=== PATIENT | male | born 1950 | race Caucasian/White ===

== ENCOUNTER 2021-05-26 14:35 | Outpatient (CLI) | payer MEDICARE, SELFPAY ==
[2021-05-26 14:45] LABS: Bacteria 0 SEEN /hpf (None Seen); Mucous, Urine 0 SEEN /hpf (<or=2+); Red Blood Cells-Urine 0 SEEN /hpf (0-5); Squamous Epithelial Cells - UA 0 SEEN /hpf (0-5)
[2021-05-26 15:14] LABS: Hematocrit 24.1 % (40-54); Hemoglobin 7.8 g/dL (13.0-16.5); Mean Corp Hgb Conc 32.4 g/dL (32-36); Mean Corpuscular Hgb 27.5 pg (27.0-32.0); Mean Corpuscular Volume 84.9 fL (80-94); Mean Platelet Vol. 8.2 fl (6.2-12.0); POSITIVE COUNT YES; POSITIVE MORPHOLOGY YES; Platelet Count 410 K/mm3 (150-450); RBC Distribution Width CV 15.6 % (11.6-14.6); RBC Distribution Width SD 47.4 fl (35.1-43.9); Red Blood Count 2.84 M/mm3 (4.6-6.2); White Blood Count 5.3 K/mm3 (4.4-11.0)
[2021-05-26 15:15] LABS: Differential Indicated MANUAL DIFF
[2021-05-26 15:43] LABS: Lymphocyte 13 % (19-41); Metamyelocyte 1 % (0-1); Monocyte 2 % (0-10); Myelocyte 1 % (0-0); Neutrophil-Band 3 % (0-5); Neutrophil-Segmented 80 % (47-70); Total Cells Counted 100 (MANUAL DIFF)
[2021-05-26 15:45] LABS: Absolute Lymphocyte Count 0.69 X10^3/uL (0.83-4.51); Absolute Neutrophil Count 4.4 X10^3/uL (2.0-7.7)
[2021-05-26 16:38] LABS: Color, Urine Yellow (Yellow); Glucose, Dipstick Normal (Normal); Ketone-Dipstick Negative (Negative); Leukocyte Esterase-Dipstick 25 /ul (Negative); Nitrite-Dipstick Negative (Negative); Occult Blood-Urine 25 /ul (Negative); Protein-Dipstick 15 mg/dl (Negative); Urine Bilirubin Dipstick Negative (Negative); Urine Clarity Clear (Clear); Urine Urobilinogen Normal (Normal)
[2021-05-26 16:43] LABS: ALB/GLOB Ratio 0.7 RATIO (0.9-2.4); AST(SGOT) 13 U/L (15-37); Alanine Aminotransfer ALT/SGPT 14 U/L (16-61); Albumin, Serum 3.2 g/dL (3.2-5.0); Alkaline Phosphatase 150 U/L (45-117); Anion Gap 7 (5-15); BUN 29 mg/dL (7-18); BUN/Creat Ratio 12.3 RATIO (10-20); Calcium,Total 8.9 mg/dL (8.5-10.1); Chloride 105 mmol/L (98-107); Cholesterol 185 mg/dL (200); Creatinine, Serum 2.35 mg/dL (0.70-1.30); EST Glomerular Filtration Rate 29 mL/min (>60); Est Glom Filt Rate - Afr Amer 36 mL/min (>60); Globulin 4.6 g/dL (2.2-4.2); Glucose 116 mg/dL (74-106); High Density Lipoprotein 85 mg/dL; PSA,Total - Annual Screen > 2000.00 ng/mL (0.00-4.00); Potassium 4.5 mmol/L (3.5-5.1); Protein, Total 7.8 g/dL (6.4-8.2); Sodium Level 136 mmol/L (136-145); Thyroid Stim Hormone (TSH) 0.98 uIU/mL (0.358-3.74); Triglycerides 121 mg/dL; Very Low Density Lipoprotein 24 mg/dL (5-40)
[2021-05-26 16:49] LABS: White Blood Cells 0-5 SEEN /hpf (0-5)
[2021-05-26 17:40] LABS: Erythrocyte Sedimentation Rate 27 mm/hr (0-20)
[2021-05-26 18:05] LABS: Ferritin 196 ng/mL (26-388); Iron 73 ug/dL (65-175); Iron Binding Capacity,Total 294 ug/dL (250-450)
[2021-05-30 09:37] LABS: Pathologist Review Reviewed
== END 2021-05-26 23:59 | disposition home or self-care (01) ==
LOC: BIMLAB 14:37
PROVIDERS: PCP Internal Medicine; Referring Provider Internal Medicine; Visit Provider Internal Medicine
DX: I10 Essential (primary) hypertension (principal); F32.A Depression, unspecified; D64.9 Anemia, unspecified; N40.1 Benign prostatic hyperplasia with lower urinary tract symptoms; R35.1 Nocturia; R97.20 Elevated prostate specific antigen [PSA]; Z12.5 Encounter for screening for malignant neoplasm of prostate
CPT/HCPCS: 36415; 80053; 80061; 81001; 82728; 83540; 83550; 84153; 84439; 84443; 85025; 85652; G0103

== ENCOUNTER 2021-06-01 11:04 | Outpatient (CLI) | payer MEDICARE, SELFPAY ==
[2021-06-01 12:48] LABS: Vitamin B12 611 pg/mL (211-911)
== END 2021-06-01 23:59 | disposition home or self-care (01) ==
LOC: BIMLAB 11:05
PROVIDERS: PCP Internal Medicine; Referring Provider Internal Medicine; Visit Provider Internal Medicine
DX: D64.9 Anemia, unspecified (principal)
CPT/HCPCS: 36415; 82607; 82746

== ENCOUNTER 2021-06-14 16:17 | Outpatient (CLI) | payer MEDICARE, SELFPAY ==
--- NOTE | 2021-06-14 | IMM_PTH ---
PATIENT: YOLY ROB LOC: [facility] U#:[id number] AGE/SX: 71/M ROOM: RE06/14/[address]: Dr. Nash Leiva MD : 1950 BED: DIS: 06/14/2021 SPEC #: [id number] RECD: 07/11/21 12:31 STATUS: HUA RELauren #: [id number] KRISTAN: 06/14/21 00:[address]: Nash Leiva DEPT: IMMUNOHISTOCHEMISTRY RECD BY: Cailin Gruber ENTERED: 07/11/21 12:33 SP TYPE: IMMUNO OTHR DR: Dr. Estefany De Guzman MD Tissues: PROSTATE BIOPSY Procedures: MSH2 (add) MLH-1 (add) MSH6 (add) Anti-PMS2 (add) KI-67 (add) P53 (add) HER-2-ENRIQUE (initial) PHYSICIAN & INSTITUTION [address] [address] SPECIMEN INFORMATION: Tissue Source: Prostate, core biopsy Clinical Info: Elevated PSA Specimen Number: [id number] CPT code: 85728, 40735 x6 METHODOLOGY: Deparaffinized sections of prefer/formalin-fixed tissue or PAP/DQ stained slides are incubated with monoclonal/polyclonal antibodies/oligonucleotide probes. Localization is made via biotin free immunoperoxidase method. Appropriate controls are performed and reacted as expected. Results on target cell population are indicated in the following table: RESULTS: ANTIBODY / CLONE RESULT Ki-67 (30-9) positive, very low <1% P53 (DO-7) negative MLH-1 (M1) positive MSH2 (25D12) negative MSH6 (44) negative PMS2 (MHN9669) positive Her-2neu (CB11) negative These tests were developed and their performance characteristics determined by [facility]. They may not have been cleared or approved by the U.S. Food and Drug Administration. The FDA has determined that such clearance or approval is not necessary. The above immunohistochemical/dualISH markers are ordered and reviewed by the Pathologist. INTERPRETATION: Prostate, core biopsy: Prostatic adenocarcinoma. Result of Microsatellite Instability Study: Positive (loss of mismatch protein; microsatellite instability detected). Complete loss of MSH2 and MSH6. SJ:elia 07/12/2021 Case has been reviewed in consultation with Dr. Platt who concurs with the above diagnosis. IDC:AM
--- NOTE | 2021-06-14 13:00 | PROSB_PTH ---
PATIENT: YOLY ROB LOC: [facility] U#:[id number] AGE/SX: 71/M ROOM: RE06/14/[address]: Dr. Nash Leiva MD : 1950 BED: DIS: 06/14/2021 SPEC #: [id number] RECD: 06/14/21 16:06 STATUS: HUA SIERRA #: [id number] KRISTAN: 06/14/21 13:[address]: Nash Leiva DEPT: SURGICAL PATHOLOGY RECD BY: Steffanie Gomez ENTERED: 06/15/21 09:01 SP TYPE: PROST BX OTHR DR: Dr. Estefany De Guzman MD Tissues: Prostate, NOS Procedures: Surgery Specimen Level IV HEADER OPERATION: Prostate biopsy PRE-OP DIAGNOSIS: R97.20 TISSUE SUBMITTED: Prostate biopsy MICROSCOPIC DIAGNOSIS Prostate, core biopsy: Prostatic adenocarcinoma. [place] grade: 3+4=7 Number of cores involved: 3/3 Proportion of tissue involved: >95% Perineural invasion: Present, focal. Greatest tumor length: 1.4 cm STEVEN:elia 06/16/2021 COMMENT Case has been reviewed in consultation with Dr. Platt who concurs with the above diagnosis. IDC:AM MICROSCOPIC DESCRIPTION Slides are reviewed. GROSS DESCRIPTION Received in fixative is one container labeled with the patient's name and designated prostate. The specimen consists of three elongated fragments of light gutierrez-white soft tissue each measuring 1.5 to 2 cm in length and 0.1 cm in diameter. The specimen is totally submitted in one cassette. / STEVEN:elia 06/15/2021 TC:0 CPT: 59590 ADDENDUM ADDENDUM ADDENDUM ADDENDUM ADDENDUM ADDENDUM ADDENDUM ADDENDUM ADDENDUM ADDENDUM ADDENDUM ADDENDUM ADDENDUM ADDENDUM ADDENDUM ADDENDUM ADDENDUM ADDENDUM ADDENDUM ADDENDUM ADDENDUM 07/25/2021 10:13 ADDENDUM 07/25/2021 10:13 ADDENDUM 07/25/2021 10:13 ADDENDUM 07/25/2021 10:13 ADDENDUM 07/25/2021 10:13 [facility] ADVANCED PROSTATE NGS REPORT FROM [facility] RESULT SUMMARY: Normal IMMUNOTHERAPY BIOMARKERS: Tumor Mutation [place]: Low (2.4 Mutations / MB) Microsatellite Instability: MSI Negative PERTINENT NEGATIVE RESULTS: The following genes are NEGATIVE for clinically relevant mutations. Mutational hotspots and surrounding exonic regions were interrogated for DNA level point mutations and indels (fusions not assayed). AR, ARID1A, GERI, ATR, BARD1, BRCA1, BRCA2, BRIP1, CDK12, CHEK1, CHEK2, EPCAM, VGP020E, FANCA, FANCL, GEN1, HOXB13, MLH1, MRE11A, MSH2, MSH6, MUTYH, NBN, NTRK1, PALB2, PMS2, WEE0F6D, PTEN, RAD51B, RAD51C, RAD51D, RAD54L, RB1, TERT, TP53 PD-L1 (KEYTRUDA) IMMUNOHISTOCHEMICAL ANALYSIS FROM [facility] RESULTS: Tumor proportion score: 5% / Positive Please see complete report in e-chart or EMR
== END 2021-06-14 23:59 | disposition home or self-care (01) ==
LOC: LABSPEC 16:19
PROVIDERS: PCP Internal Medicine; Referring Provider Urology; Visit Provider Urology
DX: R97.20 Elevated prostate specific antigen [PSA] (principal)
CPT/HCPCS: 88305; 88341; 88342

== ENCOUNTER 2021-06-21 11:59 | Outpatient (CLI) | payer MEDICARE, SELFPAY ==
--- NOTE | 2021-06-21 12:02 | CT_ITS ---
STUDY: CT ABDOMEN AND PELVIS WITH CONTRAST REASON FOR EXAM: Male, 71 years old. MALIGNANT NEOPLASM OF PROSTATE RADIATION DOSAGE (If Supplied By Facility): CTDIvol = ( 5.68 ) mGy, DLP = ( 241.34 ) mGycm TECHNIQUE: Transaxial images were obtained from the dome of the diaphragm to the symphysis pubis without oral contrast. IV 100mL Isovue-300 was administered. Sagittal and coronal images were reconstructed. Individualized dose optimization techniques were used for this CT. COMPARISON: None. FINDINGS: Small bilateral pleural effusions left greater than right with bibasilar atelectasis slightly more prominent on the left side. Calcified pleural plaques on the right side. The visualized portions of the heart are within normal limits. Normal liver. Normal gallbladder and extrahepatic biliary system. Normal spleen. Normal pancreas. Normal bilateral adrenal glands. Moderate degree of bilateral hydronephrosis and hydroureter. Normal visualized stomach. Normal small intestine. Normal colon. The appendix is visualized and appears normal. There is diffuse atherosclerotic calcification of the abdominal aorta, without a demonstrated aneurysm. Normal inferior vena cava. Normal retroperitoneum. Normal urinary bladder. There is enlargement of the prostate gland. The prostate measures 5.3 cm x 5.6 cm. This causes indentation at the bladder base. Normal abdominal wall. There is evidence of diffuse lytic and sclerotic metastasis involving the axial and appendicular skeletons. There is a 4.5 cm x 2.4 cm destructive mass involving the inferior aspect of the left sacrum. CT/Abdomen/Pelvis W IV Cont ONLY IMPRESSION: Marked enlargement of the prostate with indentation of the bladder base. Moderate degree of bilateral hydronephrosis and hydroureter. Diffuse lytic and sclerotic metastasis involving the appendicular and axial skeletons with a destructive mass in the left hemisacrum. Electronically Signed: Jhonny Sherwood MD at 14:57 EST ,
[2021-06-21 12:14] VITALS: BP 167/82; PULSE 96; RESP 16; TEMP 36.6; O2SAT 100; BMI 19.6
[2021-06-21 13:01] VITALS: BP 139/68; PULSE 83; RESP 16; O2SAT 100
[2021-06-21 13:32] VITALS: BP 144/62; PULSE 81; RESP 16; O2SAT 100
== END 2021-06-21 23:59 | disposition home or self-care (01) ==
LOC: CT 12:00
PROVIDERS: PCP Internal Medicine; Referring Provider Urology; Visit Provider Urology
DX: C61 Malignant neoplasm of prostate (principal)
CPT/HCPCS: 74177; J7040; Q9967

== ENCOUNTER 2021-06-27 08:50 | Outpatient (CLI) | payer MEDICARE, SELFPAY ==
--- NOTE | 2021-06-27 08:57 | NM_ITS ---
CLINICAL: 71-year-old male with history of carcinoma of the prostate. WHOLE BODY 99m Tc MDP RADIONUCLIDE BONE SCINTIGRAPHY COMPARISON: None available FINDINGS: Following the intravenous administration of 25.0 mCi of 99m Tc MDP, whole body bone images reveal: 1. Multifocal increased radiopharmaceutical concentration is disseminated throughout the axial skeletal structures, too many to individually articulate as well as focally apparent in the bilateral proximal humeral and femoral metaphysis, the left proximal femoral diaphysis, left femoral head-neck, right-left alicia-calvarium. 2. Enhanced tracer concentration is observed in the bilateral wrist articulations. 3. The remaining skeletal structures are scintigraphically unremarkable with right-left renal units and urinary bladder activity identified. An apparent photopenic abnormality is noted in the left kidney. NM/Bone Scan Whole Body IMPRESSION: 1. The increase in radiopharmaceutical concentration identified in the appendicular and axial skeletal structures, right-left calvarium is most consistent with diffuse skeletal metastatic disease. 2. Degenerative arthritis appears expressed in the right and left wrists. Electronically Signed: Tung Cuello DO at 22:40 EDT ,
== END 2021-06-27 23:59 | disposition home or self-care (01) ==
LOC: NM 08:53
PROVIDERS: PCP Internal Medicine; Referring Provider Urology; Visit Provider Urology
DX: C61 Malignant neoplasm of prostate (principal)
CPT/HCPCS: 78306; A9503

== ENCOUNTER 2021-07-06 09:52 | Outpatient (CLI) | payer MEDICARE, SELFPAY ==
[2021-07-06 12:40] LABS: Anion Gap 9 (5-15); BUN 27 mg/dL (7-18); BUN/Creat Ratio 14.3 RATIO (10-20); Calcium,Total 7.1 mg/dL (8.5-10.1); Chloride 105 mmol/L (98-107); Creatinine, Serum 1.89 mg/dL (0.70-1.30); EST Glomerular Filtration Rate 38 mL/min (>60); Est Glom Filt Rate - Afr Amer 46 mL/min (>60); Glucose 111 mg/dL (74-106); Potassium 4.3 mmol/L (3.5-5.1); Sodium Level 137 mmol/L (136-145)
== END 2021-07-06 23:59 | disposition home or self-care (01) ==
LOC: BIMLAB 09:53
PROVIDERS: PCP Internal Medicine; Referring Provider Internal Medicine; Visit Provider Internal Medicine
DX: I10 Essential (primary) hypertension (principal)
CPT/HCPCS: 36415; 80048

== ENCOUNTER 2021-07-12 08:20 | Outpatient (CLI) | payer MEDICARE, SELFPAY ==
[2021-07-12] MEDS: 0.9% NaCl Peripheral Flush Adult/Peds IV (08:40)
[2021-07-12 08:41] VITALS: BP 128/59; PULSE 75; RESP 16; TEMP 36.2; O2SAT 100
[2021-07-12 09:01] VITALS: BP 126/54; PULSE 72; RESP 16; TEMP 36.5; O2SAT 100
[2021-07-12 10:01] VITALS: BP 125/60; PULSE 72; RESP 16; TEMP 36.7
[2021-07-12 10:34] VITALS: BP 136/63; PULSE 66; RESP 16; TEMP 36.6; O2SAT 100
[2021-07-12 11:08] VITALS: BP 132/63; PULSE 65; RESP 16; TEMP 36.7
[2021-07-12 12:08] VITALS: BP 141/65; PULSE 63; RESP 16; TEMP 36.7; O2SAT 100
== END 2021-07-12 23:59 | disposition home or self-care (01) ==
LOC: MEDOUTP 08:21
PROVIDERS: PCP Internal Medicine; Referring Provider Internal Medicine Hematology & Oncology; Visit Provider Internal Medicine Hematology & Oncology
DX: D64.9 Anemia, unspecified (principal)
CPT/HCPCS: 36430; 86850; 86900; 86901; 86920; 86922; J7040; P9016; A4216

== ENCOUNTER 2021-07-25 12:45 | Outpatient (CLI) | payer MEDICARE, SELFPAY ==
--- NOTE | 2021-07-25 12:48 | US_ITS ---
STUDY: RENAL ULTRASOUND - COMPLETE REASON FOR EXAM: Male, 71 years old. PROSTATE CANCER TECHNIQUE: Ultrasound evaluation of the kidneys was performed with real-time and static hubbard-scale imaging. COMPARISON: None. FINDINGS: RIGHT KIDNEY: Normal location of the right kidney, which is normal in size. The right kidney measures 10.6 cm x 4.3 cm x 4.1 cm. There is a normal cortex of the right kidney. The renal cortex measures 1.1 cm. There is no right renal mass or cyst. There are no right renal calculi. There is mild hydronephrosis of the right kidney. DISTAL RIGHT URETER: There is mild hydroureter of the distal right ureter. There is no demonstrated right ureterovesical junction calculus. There is a visualized right ureteral jet. LEFT KIDNEY: Normal location of the left kidney, which is normal in size. The left kidney measures 10.2 cm x 4.7 cm x 5.2 cm. There is a normal cortex of the left kidney. The renal cortex measures 1.2 cm. There is no left renal mass or cyst. There is a 2.2 cm x 2.1 cm x 2.3 cm left renal cyst. There is moderate hydronephrosis of the left kidney. DISTAL LEFT URETER: There is mild hydroureter of the distal left ureter. There is no demonstrated left ureterovesical junction calculus. There is a visualized left ureteral jet. BLADDER: The bladder wall is diffusely thickened and trabeculated. US/Kidney and Bladder IMPRESSION: Bilateral hydronephrosis left greater than right. Left renal cyst. Trabeculation of the urinary bladder wall. Electronically Signed: Jhonny Sherwood MD at 15:14 EDT ,
== END 2021-07-25 23:59 | disposition home or self-care (01) ==
LOC: US 12:47
PROVIDERS: PCP Internal Medicine; Referring Provider Internal Medicine Hematology & Oncology; Visit Provider Internal Medicine Hematology & Oncology
DX: C61 Malignant neoplasm of prostate (principal); N13.39 Other hydronephrosis; N13.4 Hydroureter
CPT/HCPCS: 76770

== ENCOUNTER 2021-07-26 06:26 | Day surgery (SDC) | payer MEDICARE, SELFPAY ==
[2021-07-26 06:57] VITALS: BP 145/90; PULSE 77; RESP 16; TEMP 36.7; O2SAT 100; BMI 18.2
[2021-07-26] MEDS: Lactated Ringers 1,000 ML 15 ML IV (07:01)
--- NOTE | 2021-07-26 07:25 | HP.PCM_ITS ---
History and Physical Date of Admission: 07/26/21 Date of Service: 07/21/21 MR#:[id number]:[id number]: YOLY ROB #:[id number]:1950 Provider:Dr. Fadi Goldman MDAge/Sex: 71/M [facility] Vital Signs 07/21/21 13:17 Height 6 ft Weight: 138 lb BMI 18.7 BP 158/75 H Blood Pressure Location Rt brachial Position Sitting Respiration 18 Intake Visit Reasons: C-SCOPE Chief Complaint: egd/c-scope Hospital Food Service Worker Required: No Is patient in pain?: No Allergies No Known Allergies Allergy (Verified 07/21/21 13:15) Medications bicalutamide 50 mg PO DAILY 06/21/21 [History Confirmed 07/21/21] calcium carbonate-vitamin D3 [Calcium 500 + D (D3)] 1 tab PO BID 06/21/21 [History Confirmed 07/21/21] tamsulosin 0.4 mg PO QHS 06/21/21 [History Confirmed 07/21/21] amlodipine 5 mg tablet 5 mg PO DAILY #30 tab 07/06/21 [Rx Confirmed 07/21/21] dutasteride 0.5 mg capsule 0.5 mg PO DAILY 07/06/21 [History Confirmed 07/21/21] mirtazapine 15 mg tablet 15 mg PO QHS #90 tab 07/06/21 [Rx Confirmed 07/21/21] polyethylene glycol 3350 17 gram/dose oral powder 17 g PO DAILY 07/06/21 [History Confirmed 07/21/21] PFSH Medical History Alcohol abuse Anemia Arthritis Back injury BPH (benign prostatic hyperplasia) Colon cancer screening Constipation Depression Elevated PSA Hypertension Hypocalcemia Kidney injury Nocturia Prostate cancer Prostatic enlargement Surgical History History of hernia repair Family History Father Anxiety Arthritis Diabetes CVA (cerebral vascular accident) Parkinsons Mother Arthritis Hypertension Social History household members: spouse number of children: 2 current occupational status: retired current occupation: maintenance at [employer] pets and animals: No Smoking Status: Former smoker Smokeless tobacco user: chewing tobacco alcohol intake: current alcohol intake frequency: 3 or more drinks per day Alcohol type: beer details: drinks about 4 beers a day substance use type: does not use HPI HPI HPI: YOLY ROB, is a 71 M who presents to the office today for Need to schedule diagnostic EGD and colonoscopy secondary to recent diagnosis of anemia. They are referred for surgical consultation from Dr. Hermosillo. Patient was first diagnosed with anemia couple months ago. It has progressed the point that he actually required a transfusion on 07/12/2021. He states that he did perk up after this. He denies any recent experience of coughing up blood or noting bright red blood per rectum or tarry stools. He denies feeling fatigued, but states that he has lost approximately 35 pounds from last year. He and his thought this was finally explained once he was diagnosed with prostate cancer after seeing Dr. Mc of urology the end of May this year. Unfortunately, his prostate cancer was noted to be metastatic to the bone and he is currently undergoing hormonal therapy with Dr. Hermosillo for this diagnosis. His notes that his weight loss has somewhat turned around after beginning mirtazapine. Patient has not had prior colonoscopy. Patient has no personal history of diverticulitis, inflammatory bowel disease, or colon cancer. They describe their bowel habits as normal, and occurring 1 time daily without straining, however, recently on his hormonal therapy has noted some constipation. As above, they have not noticed recent bleeding or dark stools. They do not regularly take fiber supplements but believe they incorporate a lot of fiber in the regular diet. Patient has a family history of cancerous polyp in his mother that did not require treatment?they know she was diagnosed in her 90s. They relate the patient recently went through Hemoccult testing and 2 of 3 Hemoccult cards were positive. The patient is not prescribed anticoagulants/blood thinners. Relevant prior abdominal surgical history includes: Left inguinal hernia repair 25 years ago Socially, patient drinks now 3 beers nightly, but states he did much more than this when he was younger. He has never been told that he has cirrhosis or esophageal varices. He did undergo went CT imaging last month as part of his work-up for his prostate cancer diagnosis. ROS General General: Yes weight change, appetite and fatigue; No colon cancer, breast cancer or weakness HEENT HEENT: Yes eye injury and eye surgery; No difficulty swallowing, swollen glands or hoarseness Endo Endocrine: No thyroid disease, diabetes mellitus, thyroid cancer, Hair loss, heat intolerance or cold intolerance Skin Skin: No rash or changing moles Breast Breast: No left breast lump, right breast lump, nipple discharge, breast pain, abnormal mammogram, abnormal US or breast enlargement Musc Musculoskeletal: Yes back problems and arthritis; No rheumatoid arthritis, gout or joint pain Cardio Cardiovascular: Yes high blood pressure; No murmur, pacemaker, heart disease, atrial fibrillation, heart attack, heart stent, palpitations, shortness of breat with exertion or chest pain Psych Psychiatric: Yes depression and anxiety; No hearing voices Resp Respiratory: No shortness of breath, No sleep apnea, No cough, No COPD, No asthma, No emphysema and No wheezing Gastro Gastrointestinal: No abdominal pain, No nausea or vomiting, No diarrhea, Yes constipation, Yes blood in stool, No acid reflux, No hemorrhoids, No ulcers, No gallbladder problem and No black,tarry stools Jeovany Hematologic: No blood thinners, Yes blood disorders, Yes bleeding, Yes anemia and No blood clots Neuro Neurologic: No system reviewed and no additional complaints, except as documented, No as per HPI, No abnormal gait, No abnormal hearing, No abnormal movements, No abnormal speech, No behavioral changes, No burning sensations, No confusion, No convulsions, No disequilibrium, No dizziness, No localized weakness, No frequent falls, No headache(s), No lack of coordination, No loss of vision, No memory loss, No numbness, No other visual disturbances, No radicular pain, No restless legs, No sensory deficit, No syncope, No tingling, No tremor(s), No weakness and No other Exam Const General: cooperative, healthy appearing, comfortable, no acute distress and frail appearing Nutritional Appearance: thin Orientation: alert and awake Resp Effort & Inspection: normal respiratory effort Auscultation: clear to auscultation bilaterally, no rales, no rhonchi and no wheezes Cardio Rate: regular rate Rhythm: regular rhythm Heart Sounds: S1 normal and S2 normal GI Inspection: normal to inspection Palpation: soft, no hernias, no masses, nontender and other Other: Patient has a nodular area in his left groin which she states is scar tissue from his hernia repair 25 years ago?and states that he probably went back to it too quickly following the surgery Assessment and Plan Assessment and Plan (1) Anemia: Status: Acute Comment: This is a 71-year-old male recently diagnosed with metastatic prostate cancer who presents for evaluation of recently diagnosed anemia. He states that he is enjoyed relatively good health during his life, but admits he has not been in touch with medical providers for the last 20 years. He denies noting any hematemesis, hematochezia, or melena type findings. He also seems to be relatively asymptomatic from his low hemoglobin. He did have 2 of 3 fecal occult blood tests returned positive. He does not have a history of frequent NSAID use or peptic ulcer disease. Still, given this profound anemia that has now required transfusion, I agree with request to perform diagnostic EGD and colonoscopy. Also notable from patient's family history is a report that his mother was diagnosed with a cancerous colon polyp?albeit at advanced age. Given patient's significant alcohol use, will remain vigilant for signs of esophageal variceal bleeding. Plan - Dr. Fadi Goldman MD: Diagnostic EGD and colonoscopy under local MAC at first mutual availability (2) Fecal occult blood test positive: Status: Acute Comment: This is a 71-year-old male, who has no prior colonoscopy surveillance with recent diagnosis of anemia and now 2 of 3 Hemoccult studies have returned positive. He does have a family history of colon cancer, but this was found in his mother at an advanced age. Therefore, I do not think he is an exceptionally high colon cancer risk based on this history. Therefore, patient mandates diagnostic colonoscopy. Given the anemia noted above, will plan for simultaneous EGD as well. Plan - Dr. Fadi Goldman MD: EGD and colonoscopy as above I have re-examined the patient. There are no clinical changes since date of exam. Patient confirms that his prep proceeded uneventfully and his output is now clear. We reviewed the expectations for today's exams and neither he nor his son have any additional questions. Therefore we will proceed for scheduled diagnostic EGD and colonoscopy given recent diagnosis of anemia.
--- NOTE | 2021-07-26 07:30 | EGD_PTH ---
PATIENT: YOLY ROB LOC: EN U#:[id number] AGE/SX: 71/M ROOM: RE07/26/[address]: Dr. Fadi Goldman MD : 1950 BED: DIS: 07/26/2021 SPEC #: [id number] RECD: 07/26/21 13:32 STATUS: HUA RIGO #: [id number] KRISTAN: 07/26/21 07:[address]: Fadi Goldman DEPT: SURGICAL PATHOLOGY RECD BY: Steffanie Gomez ENTERED: 07/26/21 13:51 SP TYPE: EGD BIOPSY OT DR: Dr. Estefany De Guzman MD Tissues: A - Gastric mucous membrane B - Esophagus, NOS C - Cecum, NOS D - Sigmoid colon biopsy E - Sigmoid colon biopsy F - Sigmoid colon biopsy G - Rectum, NOS Procedures: Surgery Specimen Level IV HEADER OPERATION: Colonoscopy, EGD ([facility]), biopsy, polypectomy PRE-OP DIAGNOSIS: Anemia TISSUE SUBMITTED: A ? Antrum biopsy for H. pylori and path, B ? Mid esophagus biopsy, C ? Cecal biopsy, D ? Sigmoid colon biopsy, polyps, E ? Sigmoid colon polyp, F - Sigmoid colon polyp biopsy, G ? Rectal polyp biopsy MICROSCOPIC DIAGNOSIS A. Gastric antrum, biopsy: Mild chronic gastritis. See comment. B. Mid esophagus, biopsy: Fragments of benign squamous mucosa. No evidence of inflammation. C. Cecum, biopsy: Mild melanosis coli. D. Sigmoid colon polyps, biopsy: Fragments of hyperplastic polyp. E. Sigmoid colon polyp, biopsy: Tubulovillous adenoma with focal high-grade dysplasia. See comment. F. Sigmoid colon polyp, biopsy: Fragment of benign colonic mucosa with focal glandular distortion. See comment. G. Rectal polyp, biopsy: Fragments of tubular adenoma. AM:elia 07/27/2021 COMMENT A. The results of immunohistochemistry for Helicobacter pylori will be reported separately ([id number]). E. The surgical margin at stalk is free of dysplastic and/or adenomatous change. The high-grade dysplasia is close to the luminal surface and no stalk invasion is identified. F. Neither hyperplastic nor adenomatous change is identified. Clinical correlation is suggested. Case has been reviewed in consultation with Dr. Aldridge who concurs with the above diagnosis. IDC:SJ MICROSCOPIC DESCRIPTION Slides are reviewed. GROSS DESCRIPTION A - Received in fixative is one container labeled with the patient's name and designated antrum biopsy. The specimen consists of one irregular fragment of light gutierrez soft tissue that measures 0.6 x 0.2 x 0.1 cm. The specimen is totally submitted in one cassette. B - Received in fixative is one container labeled with the patient's name and designated mid esophagus biopsy. The specimen consists of two irregular fragments of light gutierrez soft tissue that in aggregate measure 0.6 x 0.5 x <0.1 cm. The specimen is totally submitted in one cassette. C - Received in fixative is one container labeled with the patient's name and designated cecal biopsy. The specimen consists of one irregular fragment of light gutierrez soft tissue that measures 0.5 x 0.3 x 0.1 cm. The specimen is totally submitted in one cassette. D - Received in fixative is one container labeled with the patient's name and designated sigmoid colon biopsy. The specimen consists of two irregular fragments of light gutierrez soft tissue that in aggregate measure 0.7 x 0.6 x 0.1 cm. The specimen is totally submitted in one cassette. E - Received in fixative is one container labeled with the patient's name and designated sigmoid colon polyp biopsy. The specimen consists of multiple irregular fragments of pink-gutierrez soft tissue ranging in size from 0.1 to 3 cm. The largest fragment appears to be a polyp that is pedunculated. The presumed margin of excision is inked and the largest fragment is serially sectioned and totally submitted along with the smaller fragments in two cassettes. F - Received in fixative is one container labeled with the patient's name and designated sigmoid colon polyp. The specimen consists of multiple irregular fragments of light gutierrez soft tissue that in aggregate measure 0.5 x 0.2 x 0.1 cm. The specimen is totally submitted in one cassette. G - Received in fixative is one container labeled with the patient's name and designated rectal polyp biopsy. The specimen consists of multiple irregular fragments of light gutierrez soft tissue that in aggregate measure 0.3 x 0.2 x <0.1 cm. The specimen is totally submitted in one cassette. / AM:rg 07/26/2021 TC:0 CPT: 03190 x7
--- NOTE | 2021-07-26 07:30 | IMM_PTH ---
PATIENT: YOLY ROB LOC: EN U#:[id number] AGE/SX: 71/M ROOM: RE07/26/[address]: Dr. Fadi Goldman MD : 1950 BED: DIS: 07/26/2021 SPEC #: [id number] RECD: 07/26/21 14:24 STATUS: HUA REQ #: [id number] KRISTAN: 07/26/21 07:[address]: Fadi Goldman DEPT: IMMUNOHISTOCHEMISTRY RECD BY: Cailin Gruber ENTERED: 07/26/21 14:25 SP TYPE: IMMUNO OTHR DR: Dr. Estefany De Guzman MD Tissues: A - Stomach, NOS Procedures: H Pylori (initial) PHYSICIAN & INSTITUTION [place] [id number] SPECIMEN INFORMATION: Tissue Source: A ? Antrum biopsy Clinical Info: Anemia, fecal occult blood positive Specimen Number: [id number] CPT code: 96315 METHODOLOGY: Deparaffinized sections of prefer/formalin-fixed tissue or PAP/DQ stained slides are incubated with monoclonal/polyclonal antibodies/oligonucleotide probes. Localization is made via biotin free immunoperoxidase method. Appropriate controls are performed and reacted as expected. Results on target cell population are indicated in the following table: RESULTS: ANTIBODY / CLONE RESULT Block A H Pylori (polyclonal) negative These tests were developed and their performance characteristics determined by [facility]. They may not have been cleared or approved by the U.S. Food and Drug Administration. The FDA has determined that such clearance or approval is not necessary. The above immunohistochemical/dualISH markers are ordered and reviewed by the Pathologist. INTERPRETATION: A. Antrum biopsy: Negative for Helicobacter pylori organisms. AM:elia 07/27/2021
[2021-07-26 09:22] VITALS: BP 124/62; BP 145/90; PULSE 71; RESP 16; TEMP 36.1; O2SAT 95
--- NOTE | 2021-07-26 09:22 | OP.EGD_ITS ---
Patient Name: Jose Virgen Procedure Date: 07/26/2021 7:23 AM Date of : 1950 Age: 71 Procedure: Upper GI endoscopy Indications: Iron deficiency anemia Providers: Fadi Goldman MD Medicines: Monitored Anesthesia Care, See the Anesthesia note for documentation of the administered medications Patient Profile: Refer to note in patient chart for documentation of history and physical. Complications: No immediate complications. Estimated blood loss: Minimal. Procedure: Pre-Anesthesia Assessment: - The heart rate, respiratory rate, oxygen saturations, blood pressure, adequacy of pulmonary ventilation, and response to care were monitored throughout the procedure. After obtaining informed consent, the endoscope was passed under direct vision. Throughout the procedure, the patient's blood pressure, pulse, and oxygen saturations were monitored continuously. The gastroscope was introduced through the mouth, and advanced to the second part of duodenum. The upper GI endoscopy was accomplished without difficulty. The patient tolerated the procedure well. Scope In: 7:33:08 AM Scope Out: 7:44:07 AM Total Procedure Duration Time 0 hours 10 minutes 59 seconds Findings: The first portion of the duodenum and second portion of the duodenum were normal. No biopsies or other specimens were collected for this exam. Localized mild inflammation characterized by erythema was found in the gastric antrum. Biopsies were taken with a cold forceps for histology. Estimated blood loss was minimal. The Z-line was regular and was found 43 cm from the incisors. No biopsies or other specimens were collected for this exam. LA Grade A (one or more mucosal breaks less than 5 mm, not extending between tops of 2 mucosal folds) esophagitis with no bleeding was found. Biopsies were taken with a cold forceps for histology. Estimated blood loss was minimal. Impression: - Normal first portion of the duodenum and second portion of the duodenum. No specimens collected. - Gastritis. Biopsied. - Z-line regular, 43 cm from the incisors. No specimens collected. - LA Grade A esophagitis. Biopsied. Recommendation: - Discharge patient to home (via wheelchair). - Resume regular diet today. - Use Prilosec (omeprazole) 20 mg PO daily today. - Await pathology results. - Telephone my office for pathology results in 1 week. - Continue present medications. Procedure Code(s): --- Professional --- 02372, Esophagogastroduodenoscopy, flexible, transoral; with biopsy, single or multiple Diagnosis Code(s): --- Professional --- K29.70, Gastritis, unspecified, without bleeding K20.9, Esophagitis, unspecified D50.9, Iron deficiency anemia, unspecified CPT copyright 2017 [employer]. All rights reserved. The codes documented in this report are preliminary and upon surfacer operator review may be revised to meet current compliance requirements. Fadi Goldman MD 07/26/2021 9:22:03 AM This report has been signed electronically. Number of Addenda: 0 Note Initiated On: 07/26/2021 7:23 AM
--- NOTE | 2021-07-26 09:23 | OP.CCLET_ITS ---
07/26/2021 Estefany De Guzman MD [address] [place] [address] [place] [address] Re : Upper GI endoscopy procedure for Jose Vigren Dear Dr. De Guzman This procedure was performed on Monday, July 26, 2021. My impressions and recommendations are as follows: Impressions : - Normal first portion of the duodenum and second portion of the duodenum. No specimens collected. - Gastritis. Biopsied. - Z-line regular, 43 cm from the incisors. No specimens collected. - LA Grade A esophagitis. Biopsied. Recommendations : - Discharge patient to home (via wheelchair). - Resume regular diet today. - Use Prilosec (omeprazole) 20 mg PO daily today. - Await pathology results. - Telephone my office for pathology results in 1 week. - Continue present medications. My findings are described in the full procedure note, which is enclosed. If I can be of further assistance, please feel free to contact me at Doctor phone number(s): , Work: . Sincerely, Fadi Goldman MD 07/26/2021 9:22:03 AM This report has been signed electronically.
[2021-07-26 09:25] VITALS: BP 131/64; BP 145/90; PULSE 74; RESP 16; O2SAT 96
[2021-07-26 09:30] VITALS: BP 135/83; BP 145/90; PULSE 76; RESP 16; O2SAT 100
--- NOTE | 2021-07-26 09:31 | OP.COLON_ITS ---
Patient Name: Jose Virgen Procedure Date: 07/26/2021 7:47 AM Date of : 1950 Age: 71 Procedure: Colonoscopy Indications: Iron deficiency anemia Providers: Fadi Goldman MD Medicines: See the Anesthesia note for documentation of the administered medications Patient Profile: Refer to note in patient chart for documentation of history and physical. Last Colonoscopy: none. The patient's first colonoscopy is today. Refer to note in patient chart for documentation of history and physical. Complications: No immediate complications. Estimated blood loss: Minimal. Procedure: Pre-Anesthesia Assessment: - The heart rate, respiratory rate, oxygen saturations, blood pressure, adequacy of pulmonary ventilation, and response to care were monitored throughout the procedure. - The heart rate, respiratory rate, oxygen saturations, blood pressure, adequacy of pulmonary ventilation, and response to care were monitored throughout the procedure. After I obtained informed consent, the scope was passed under direct vision. Throughout the procedure, the patient's blood pressure, pulse, and oxygen saturations were monitored continuously. The colonoscope was introduced through the anus and advanced to the cecum, identified by appendiceal orifice and ileocecal valve. The colonoscopy was somewhat difficult due to a tortuous colon. Successful completion of the procedure was aided by withdrawing and reinserting the scope. The patient tolerated the procedure well. The quality of the bowel preparation was adequate to identify polyps. Scope In: 7:50:07 AM Scope Withdrawal Time 1 hour 7 minutes 10 seconds Scope Out: 9:12:26 AM Total Procedure Duration Time 1 hour 22 minutes 19 seconds Findings: Many medium-mouthed diverticula were found in the sigmoid colon. No biopsies or other specimens were collected for this exam. Estimated blood loss was minimal. One 6 mm mucosal nodule was found in the cecum. Biopsies were taken with a cold forceps for histology. A 27 mm polypoid lesion was found in the sigmoid colon. The lesion was frond-like/villous. No bleeding was present. The polyp was removed with a hot snare. Resection and retrieval were complete. Estimated blood loss was minimal. Three semi-pedunculated polyps were found in the rectum and sigmoid colon. The polyps were 3 to 6 mm in size. These polyps were removed with a hot snare. Resection and retrieval were complete. The retroflexed view of the distal rectum and anal verge was normal and showed no anal or rectal abnormalities. Impression: - Diverticulosis in the sigmoid colon. No specimens collected. - Mucosal nodule in the cecum. Biopsied. - Polypoid lesion in the sigmoid colon. Complete removal was accomplished. - Three 3 to 6 mm polyps in the rectum and in the sigmoid colon, removed with a hot snare. Resected and retrieved. - The distal rectum and anal verge are normal on retroflexion view. Recommendation: - Discharge patient to home (via wheelchair). - Resume regular diet today. - Continue present medications. - Await pathology results. - Repeat colonoscopy date to be determined after pending pathology results are reviewed for surveillance based on pathology results. - Telephone my office for pathology results in 1 week. Procedure Code(s): --- Professional --- 30061, Colonoscopy, flexible; with removal of tumor(s), polyp(s), or other lesion(s) by snare technique 45751, 59, Colonoscopy, flexible; with biopsy, single or multiple Diagnosis Code(s): --- Professional --- K63.89, Other specified diseases of intestine D49.0, Neoplasm of unspecified behavior of digestive system K62.1, Rectal polyp D12.5, Benign neoplasm of sigmoid colon D50.9, Iron deficiency anemia, unspecified K57.30, Diverticulosis of large intestine without perforation or abscess without bleeding CPT copyright 2017 [employer]. All rights reserved. The codes documented in this report are preliminary and upon retort furnace helper review may be revised to meet current compliance requirements. Fadi Goldman MD 07/26/2021 9:30:19 AM This report has been signed electronically. Number of Addenda: 0 Note Initiated On: 07/26/2021 7:47 AM
--- NOTE | 2021-07-26 09:31 | OP.CCLET_ITS ---
07/26/2021 Estefany De Guzman MD [address] [place] [address] [place] [address] Re : Colonoscopy procedure for Jose Virgen Dear Dr. De Guzman This procedure was performed on Monday, July 26, 2021. My impressions and recommendations are as follows: Impressions : - Diverticulosis in the sigmoid colon. No specimens collected. - Mucosal nodule in the cecum. Biopsied. - Polypoid lesion in the sigmoid colon. Complete removal was accomplished. - Three 3 to 6 mm polyps in the rectum and in the sigmoid colon, removed with a hot snare. Resected and retrieved. - The distal rectum and anal verge are normal on retroflexion view. Recommendations : - Discharge patient to home (via wheelchair). - Resume regular diet today. - Continue present medications. - Await pathology results. - Repeat colonoscopy date to be determined after pending pathology results are reviewed for surveillance based on pathology results. - Telephone my office for pathology results in 1 week. My findings are described in the full procedure note, which is enclosed. If I can be of further assistance, please feel free to contact me at Doctor phone number(s): , Work: . Sincerely, Fadi Goldman MD 07/26/2021 9:30:19 AM This report has been signed electronically.
[2021-07-26 09:35] VITALS: BP 145/90; BP 147/80; PULSE 82; RESP 16; O2SAT 98
[2021-07-26 09:40] VITALS: BP 144/80; BP 145/90; PULSE 79; RESP 16; TEMP 36.4; O2SAT 100
== END 2021-07-26 23:59 | disposition home or self-care (01) ==
LOC: EN 06:27 → AC 06:30
PROVIDERS: PCP Internal Medicine; Referring Provider Internal Medicine; Visit Provider Surgery
PROC: 0DJD8ZZ Inspection of Lower Intestinal Tract, Via Natural or Artificial Opening Endoscopic (ICD-10-PCS; CPT 45378; principal; 2021-07-26 07:25)
DX: D12.5 Benign neoplasm of sigmoid colon (principal); C79.51 Secondary malignant neoplasm of bone; C61 Malignant neoplasm of prostate; D12.8 Benign neoplasm of rectum; K63.89 Other specified diseases of intestine; K57.30 Diverticulosis of large intestine without perforation or abscess without bleeding; K29.50 Unspecified chronic gastritis without bleeding; K20.90 Esophagitis, unspecified without bleeding; D50.9 Iron deficiency anemia, unspecified; R19.5 Other fecal abnormalities; I10 Essential (primary) hypertension; F17.220 Nicotine dependence, chewing tobacco, uncomplicated; F10.10 Alcohol abuse, uncomplicated; Y90.9 Presence of alcohol in blood, level not specified; Z79.899 Other long term (current) drug therapy; Z80.0 Family history of malignant neoplasm of digestive organs
CPT/HCPCS: 45385; 45380; 43239; 88305; 88342; J7120; A4648

== ENCOUNTER 2021-08-17 12:02 | Observation (INO) | payer MEDICARE, SELFPAY ==
--- NOTE | 2021-08-15 15:38 | EKG12_ITS ---
Test Reason : PREOP Blood Pressure : / mmHG Vent. Rate : 073 BPM Atrial Rate : 073 BPM P-R Int : 138 ms QRS Dur : 094 ms QT Int : 424 ms P-R-T Axes : 071 049 067 degrees QTc Int : 467 ms Normal sinus rhythm Nonspecific ST abnormality Abnormal ECG Confirmed by EDSON AGEE, VADIM ([id number]), editor farm journal YESSY FISHMAN ([id number]) on 08/16/2021 8:21:45 AM Referred By: Nash Leiva Confirmed By:VADIM SANDHU MD
[2021-08-15 16:19] LABS: Hemoglobin 9.3 g/dL (13.0-16.5); Mean Corpuscular Volume 90.4 fL (80-94); Mean Platelet Vol. 8.8 fl (6.2-12.0); Platelet Count 283 K/mm3 (150-450); RBC Distribution Width CV 18.3 % (11.6-14.6); RBC Distribution Width SD 59.9 fl (35.1-43.9); Red Blood Count 3.32 M/mm3 (4.6-6.2); White Blood Count 4.1 K/mm3 (4.4-11.0)
[2021-08-15 16:37] LABS: International Normalized Ratio 1.1; Partial Thromboplast Time 31.7 Seconds (24.1-36.2); Prothrombin Time (Protime)PT. 14.2 SECONDS (11.7-14.9)
[2021-08-15 16:49] LABS: Anion Gap 7 (5-15); BUN 25 mg/dL (7-18); BUN/Creat Ratio 13.2 RATIO (10-20); Calcium,Total 7.4 mg/dL (8.5-10.1); Chloride 108 mmol/L (98-107); Creatinine, Serum 1.89 mg/dL (0.70-1.30); EST Glomerular Filtration Rate 38 mL/min (>60); Est Glom Filt Rate - Afr Amer 46 mL/min (>60); Glucose 119 mg/dL (74-106); Sodium Level 138 mmol/L (136-145)
[2021-08-17] VITALS (13 sets, daily range): BP systolic 106–168; BP diastolic 61–79; PULSE 67–89; RESP 16–18; TEMP 36.5–37.1; O2SAT 92–100; BMI 19.4
--- NOTE | 2021-08-17 | PROS_PTH ---
PATIENT: YOLY ROB LOC: MS3 U#:[id number] AGE/SX: 71/M ROOM: [facility] [place] RE08/17/[address]: Dr. Nash Leiva MD : 1950 BED: 1 DIS: 08/18/2021 SPEC #: [id number] RECD: 08/17/21 13:19 STATUS: HUA SIERRA #: [id number] KRISTAN: 08/17/21 00:[address]: Nash Leiva DEPT: SURGICAL PATHOLOGY RECD BY: Olivier Rolon ENTERED: 08/18/21 08:02 SP TYPE: TURP OTHR DR: Dr. Estefany De Guzman MD Tissues: Prostate, NOS Procedures: Surgery Specimen Level IV HEADER OPERATION: Cysto, TUR Prostate, Olympus PRE-OP DIAGNOSIS: Malignant neoplasm of the prostate TISSUE SUBMITTED: Prostate Chips MICROSCOPIC DIAGNOSIS Prostate chips, transurethral resection: Prostatic adenocarcinoma. See cancer summary in the comment section. SJ:rg 08/19/2021 COMMENT PROSTATE CANCER (TUR) SUMMARY: Procedure - transurethral resection of prostate (TURP) Histologic type ? acinar adenocarcinoma. Histologic grade (Mendez Pattern) ? grade group 2 (Magalia score 3+4=7) Tumor Quantitation (TUR specimens): Estimated % of prostatic tissue involved by tumor - >95% Periprostatic fat invasion ? not applicable Seminal vesicle invasion ? not applicable Lymphvascular invasion ? not identified Perineural invasion ? present, focal Additional pathologic findings - none Treatment effect ? no known presurgical therapy. The above summary is in compliance with [employer] [place] [employer] (CAP) Cancer Protocols Checklist and [place] Joint Committee on Cancer (AJCC), Staging Manual, 8th Ed. Please make reference to previous specimen ([id number]) prostate, core biopsy with diagnosis of ?prostatic adenocarcinoma.? Case has been reviewed in consultation with Dr. Platt who concurs with the above diagnosis. IDC:AM MICROSCOPIC DESCRIPTION Slides are reviewed. GROSS DESCRIPTION Received is one container labeled with the patient's name and designated prostate chips. The specimen consists of multiple irregular fragments of pink-gutierrez, rubbery, soft tissue that in aggregate weigh 7.8 gm and measure in aggregate 5.5 x 5 x 1.5 cm. The entire specimen is submitted in eight cassettes. / STEVEN:elia 08/18/2021 TC:0 CPT: 88290
--- NOTE | 2021-08-17 12:03 | HP.PCM_ITS ---
HPI - General HPI Narrative YOLY ROB, is a 71 M who presents for a TURP history of advanced prostate cancer. REPLACED BY [facility] Medical History Alcohol abuse Alcohol use Anemia Anxiety Arthritis Back injury Back pain BPH (benign prostatic hyperplasia) Colon cancer screening Constipation Depression Elevated PSA Former smoker History of steroid therapy History of transfusion Hypertension Hypocalcemia Kidney injury Lightheaded Loose, teeth Marijuana use Nocturia Prostate cancer Prostate disease Prostatic enlargement Psoriasis Smokeless tobacco use Wears glasses Home Medications calcium carbonate-vitamin D3 1 tab PO BID 06/21/21 [History Last Taken 08/16/21] tamsulosin 0.4 mg PO QHS 06/21/21 [History Last Taken 08/16/21] dutasteride 0.5 mg capsule 0.5 mg PO QHS 07/06/21 [History Last Taken 08/16/21] Eligard (3 month) 22.5 mg SUBCUT .Q3MO 07/25/21 [History Last Taken 08/16/21] cholecalciferol (vitamin D3) [Vitamin D3] 50 mcg PO DAILY 07/25/21 [History Last Taken 08/16/21] Xtandi 160 mg PO QHS 08/12/21 [History Last Taken 08/16/21] amlodipine 5 mg PO QHS 08/12/21 [History Last Taken 08/16/21] mirtazapine 15 mg PO QHS 08/12/21 [History Last Taken 08/16/21] ciprofloxacin HCl [Cipro] 500 mg PO BID 7 Days #14 tab 08/17/21 [Rx Last Taken Unknown] Allergy/AdvReac Type Severity Reaction Status Date / Time No Known Allergies Allergy Verified 08/17/21 10:35 Family History Father Anxiety Arthritis Diabetes CVA (cerebral vascular accident) Parkinsons Mother Arthritis Hypertension Surgical History History of colonoscopy History of hernia repair Social History household members: spouse number of children: 2 current occupational status: retired 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 [employer] pets and animals: No Smoking Status: Current some day smoker tobacco type: smokeless tobacco Smokeless tobacco user: chewing tobacco alcohol intake: current alcohol intake frequency: 3 or more drinks per day Alcohol type: beer details: drinks about 4 beers a day substance use type: does not use Vital Signs Vital Signs Vital Signs: 08/17/21 10:30 Temperature 98.6 F Temperature Source Temporal Pulse Rate 73 Respiratory Rate 16 Respiratory Pattern Normal Blood Pressure 157/74 H Blood Pressure Mean 101 Blood Pressure Source Monitor Blood Pressure Position Semi-Fowlers Blood Pressure Location Left Arm Pulse Ox 100 Oxygen Delivery Method Room Air Weight Weight: 65 kg Body Mass Index (BMI) 19.4 Results Lab / Micro Data Result Diagrams: 08/15/21 15:24 08/15/21 15:24
--- NOTE | 2021-08-17 12:04 | PCM.DC ---
Discharge Instructions Diet Discharge Diet: No restrictions Activity Discharge Activity: Return to Normal Activity and May Not Drive (while taking narcotic pain medications.) Dressing / Incision Call your doctor if you observe: Fever of 101 or Higher Follow Up Care Please Follow Up With: Nash Leiva MD When: Call [phone] for an appointment Test Results: Test results from this visit will be discussed in further detail at your follow-up appointment, if applicable. Discharge Plan Admission Primary Reason for Your Visit: TURP Attending Provider: Nash Leiva Primary Care Provider: Estefany De Guzman Instructions Patient Instructions: [facility] Discharge Orders/Prescriptions Prescriptions: New ciprofloxacin HCl [Cipro] 500 mg tablet 500 mg PO BID 7 Days Qty: 14 RF: 0 Continued dutasteride 0.5 mg capsule 0.5 mg PO QHS RF: 0 tamsulosin 0.4 mg Capsule 0.4 mg PO QHS RF: 0 calcium carbonate-vitamin D3 500 mg-3.125 mcg (125 unit) Tablet 1 tab PO BID RF: 0 cholecalciferol (vitamin D3) [Vitamin D3] 50 mcg (2,000 unit) Capsule 50 mcg PO DAILY RF: 0 Eligard (3 month) 22.5 mg Syringe 22.5 mg SUBCUT .Q3MO RF: 0 Xtandi 80 mg Tablet 160 mg PO QHS RF: 0 amlodipine 5 mg tablet 5 mg PO QHS RF: 0 mirtazapine 15 mg tablet 15 mg PO QHS RF: 0 Referrals / Follow Up: Estefany De Guzman MD [Primary Care Provider] - Nash Leiva MD [STAFF PHYSICIAN] - Disposition Disposition (needs filled in before D/C Order can be placed): Home, Self Care
[2021-08-17] MEDS: Cefazolin 2 GM in 0.9% Normal Saline 100 ML IV (12:15)
--- NOTE | 2021-08-17 12:33 | OP.PCM_ITS ---
Report of Operation Date of Procedure: 08/17/21 Pre-Operative Diagnosis: BPH with obstruction and prostate cancer Post-Operative Diagnosis: Same Surgery/Procedure Performed:: Transurethral resection of the prostate Description of Surgical Findings:: In the preoperative setting I discussed with the patient how the surgery would be done with expect afterwards. We discussed how a prostate resection is done and we discussed the risk of the surgery including, bleeding, infection, retrograde ejaculation, changes with ejaculation or intercourse,. We discussed the possibility that the resection of the prostate may not alleviate his urinary symptoms. We discussed the small risk of developing scar tissue along the urethral channel and strictures. We also discussed the chance of the prostate could grow back and he may need further s urgery or treatment in the future for prostate problems. Patient was taken back to the operating room, timeout procedure was performed, he was identified and marked and placed on the operating room table. He underwent general anesthesia. He was placed in dorsolithotomy position. Penis and testicles were prepped and draped in usual sterile fashion. Went into the bladder using the visual obturator with a resectoscope. Once inside the bladder identified the right and left ureteral orifice. I then identified the prostate and the anatomy of the prostate. I marked out the area of the sphincter and the verumontanum was identified. I then proceeded with the prostate resection first resected the median lobe. And then resected the right lobe of the prostate. Then to resect the left lobe of the prostate. I then resected the apical tissue of the prostate. This was a complete resection of all obstructive tissue to improve voiding and relieve obstruction. I then made sure that there was no injury to the sphincter or the verumontanum was still intact. At the end of the resection all the chips were Ellik out of the bladder. I then identified the left and right ureteral orifice and these were confirmed to be in good position and effluxing and not injured. The resectoscope was removed, a 22 Kinyarwanda catheter was placed into the bladder on continuous irrigation. And the urine was fairly light pink color and draining normally. He was taken back to the PACU in good condition. CPT 75892 Surgeon: Cali Type of Anesthesia: General Drains: 22 Kinyarwanda three-way catheter Admit VTE Documentation VTE Present on Admission: No VTE Mechan Device Prophylaxis: SCD's VTE Pharm Prophylaxis ordered?: No
[2021-08-17] MEDS: Tamsulosin HCl 0.4 MG Capsule PO (22:48)
[2021-08-17] MEDS: Mirtazapine 15 MG Tablet PO (22:48)
[2021-08-17] MEDS: amLODIPine 5 MG Tablet PO (22:48)
[2021-08-17] MEDS: Finasteride 5 MG Tablet PO (22:49)
[2021-08-18 02:45] VITALS: BP 122/73; PULSE 84; RESP 16; TEMP 37.3; O2SAT 96
--- NOTE | 2021-08-18 07:42 | PCM.PN.BLA ---
Progress Note urine clear d/c [facility] after voids
[2021-08-18 08:14] VITALS: BP 128/69; PULSE 88; RESP 16; TEMP 36.2; O2SAT 99
--- NOTE | 2021-08-18 10:58 | PHA.DC.MC ---
Pharmacy Service has performed discharge medication reconciliation and counseling for this patient. The patient was counseled on the following discharge medications and changes in medications for homegoing were reviewed. 1. CIPRO The Reason for Use, instructions for use, and potential side effects were reviewed for all new medications. The patient's questions regarding all of their medications were answered. The patient was able to verbally demonstrate an understanding of their discharge medications. Home Medications calcium carbonate-vitamin D3 1 tab PO BID 06/21/21 tamsulosin 0.4 mg PO QHS 06/21/21 dutasteride 0.5 mg capsule 0.5 mg PO QHS 07/06/21 Eligard (3 month) 22.5 mg SUBCUT .Q3MO 07/25/21 cholecalciferol (vitamin D3) [Vitamin D3] 50 mcg PO DAILY 07/25/21 Xtandi 160 mg PO QHS 08/12/21 amlodipine 5 mg PO QHS 08/12/21 mirtazapine 15 mg PO QHS 08/12/21 ciprofloxacin HCl [Cipro] 500 mg PO BID 7 Days #14 tab 08/17/21 The patient's discharge medication list was reviewed for discrepancies and discrepancies were resolved.
== END 2021-08-18 15:25 | disposition home or self-care (01) ==
LOC: SDC 14:13 → MS3 14:13
PROVIDERS: Anesthesiology; Admitting Provider Urology; PCP Internal Medicine; Referring Provider Urology; Visit Provider Urology
PROC: (CPT 52601; principal; 2021-08-17 12:05)
DX: C61 Malignant neoplasm of prostate (principal); C79.51 Secondary malignant neoplasm of bone; F17.220 Nicotine dependence, chewing tobacco, uncomplicated; N40.1 Benign prostatic hyperplasia with lower urinary tract symptoms; N13.8 Other obstructive and reflux uropathy; Z79.899 Other long term (current) drug therapy; F41.9 Anxiety disorder, unspecified; F32.9 Major depressive disorder, single episode, unspecified; R35.0 Frequency of micturition; I10 Essential (primary) hypertension; D64.9 Anemia, unspecified; Z87.19 Personal history of other diseases of the digestive system; R42 Dizziness and giddiness; R35.1 Nocturia; R94.31 Abnormal electrocardiogram [ECG] [EKG]
CPT/HCPCS: 52601; 00914; 36415; 80048; 85027; 85610; 85730; 87426; 88305; 93005; 99218; 99406; C9803; J7120; G0378; J2405

== ENCOUNTER → 2021-08-31 | Outpatient (CLI) | payer MEDICARE, SELFPAY ==
[2021-08-31 12:15] LABS: Absolute Lymphocyte Count 1.08 X10^3/uL (0.83-4.51); Absolute Neutrophil Count 4.5 X10^3/uL (2.0-7.7); Basophil# 0.05 X10^3/uL; Basophil% 0.8 % (0-1); Eosinophil# 0.23 X10^3/uL; Eosinophils% 3.7 % (0-5); Hematocrit 24.3 % (40-54); Hemoglobin 7.4 g/dL (13.0-16.5); Lymphocyte # 1.08 X10^3/ul (0.83-4.51); Lymphocyte % 17.2 % (19-41); Mean Corp Hgb Conc 30.5 g/dL (32-36); Mean Corpuscular Hgb 27.9 pg (27.0-32.0); Mean Corpuscular Volume 91.7 fL (80-94); Mean Platelet Vol. 8.8 fl (6.2-12.0); Monocyte# 0.31 X10^3/uL; Monocyte% 4.9 % (0-10); NRBC Flagged by Analyzer 0.5 % (0-5); Neutrophil # 4.53 X10^3/uL (2.7-7.7); Neutrophil % 72.1 % (47-70); Platelet Count 348 K/mm3 (150-450); RBC Distribution Width CV 16.9 % (11.6-14.6); RBC Distribution Width SD 56.6 fl (35.1-43.9); Red Blood Count 2.65 M/mm3 (4.6-6.2); White Blood Count 6.3 K/mm3 (4.4-11.0)
[2021-08-31 12:51] LABS: Vitamin D,25 Hydroxy 35.5 ng/mL
== END | disposition home or self-care (01) ==
LOC: BIMLAB 11:36
PROVIDERS: PCP Internal Medicine; Referring Provider Internal Medicine; Visit Provider Internal Medicine
DX: D64.9 Anemia, unspecified (principal); E83.51 Hypocalcemia
CPT/HCPCS: 36415; 82306; 85025

== ENCOUNTER 2021-09-01 10:52 | Inpatient (IN) | payer MEDICARE, SELFPAY ==
[2021-09-01] VITALS (23 sets, daily range): BP systolic 122–201; BP diastolic 59–84; PULSE 67–111; RESP 15–18; TEMP 36.2–37.3; O2SAT 96–100; BMI 19.0; BMI 18.4
--- NOTE | 2021-09-01 11:15 | EKG12_ITS ---
Test Reason : DIZZINESS Blood Pressure : / mmHG Vent. Rate : 082 BPM Atrial Rate : 082 BPM P-R Int : 136 ms QRS Dur : 094 ms QT Int : 388 ms P-R-T Axes : 055 015 055 degrees QTc Int : 453 ms Normal sinus rhythm Nonspecific ST and T wave abnormality Abnormal ECG Confirmed by MERISSA AGEE, LOUIS ([id number]), editorial cartoonist YESSY FISHMAN ([id number]) on 09/05/2021 9:50:16 AM Referred By: Confirmed By:BRAIN CRAVEN MD
--- NOTE | 2021-09-01 11:30 | EDS_ITS ---
HPI <KT Murrell - Last Filed: 09/01/21 13:15> History of Present Illness Chief Complaint: Dizziness Narrative Narrative: 71-year-old male with history of prostate cancer with metastasis, hypertension, history of anemia presents the emergency department with syncopal episode x2. For the last week, patient has been feeling more and more weak, he did have a syncopal episode 5 days ago, squad was called however he felt much better and did not want to come into the hospital. Today, the patient had an appointment with his urologist however he was so weak and he had a syncopal episode in the shower that he is here for evaluation. He denies any blood in his stool, he does state to have slight pink tinge urine secondary to a TURP procedure done greater than 2 weeks ago. He denies any chest pain or shortness of breath. Denies any recent long trips, blood clots in the legs or lungs. PFSH <KT Murrell - Last Filed: 09/01/21 13:15> [facility] Medical History Alcohol abuse Alcohol use Anemia Anxiety Arthritis Back injury Back pain BPH (benign prostatic hyperplasia) Colon cancer screening Constipation Depression Elevated PSA Former smoker History of steroid therapy History of transfusion Hypertension Hypocalcemia Kidney injury Lightheaded Loose, teeth Marijuana use Nocturia Prostate cancer Prostate disease Prostatic enlargement Psoriasis Smokeless tobacco use Wears glasses Home Medications calcium carbonate-vitamin D3 1 tab PO BID 06/21/21 [History Last Taken 09/01/21] tamsulosin 0.4 mg PO QHS 06/21/21 [History Last Taken 08/31/21] dutasteride 0.5 mg capsule 0.5 mg PO QHS 07/06/21 [History Last Taken 08/31/21] Eligard (3 month) 22.5 mg SUBCUT .Q3MO 07/25/21 [History Last Taken 08/16/21] cholecalciferol (vitamin D3) [Vitamin D3] 50 mcg PO DAILY 07/25/21 [History Last Taken 08/31/21] Xtandi 160 mg PO QHS 08/12/21 [History Last Taken 08/31/21] mirtazapine 15 mg PO QHS 08/12/21 [History Last Taken 08/31/21] amlodipine 10 mg tablet 10 mg PO QHS #90 tab 08/23/21 [Rx Last Taken 08/31/21] ferrous sulfate 325 mg PO DAILY 09/01/21 [History Last Taken Unknown] Allergy/AdvReac Type Severity Reaction Status Date / Time No Known Allergies Allergy Verified 08/23/21 10:11 Family History Father Anxiety Arthritis Diabetes CVA (cerebral vascular accident) Parkinsons Mother Arthritis Hypertension Surgical History H/O transurethral resection of prostate History of colonoscopy History of hernia repair Social History household members: spouse number of children: 2 current occupational status: retired current occupation: maintenance at [employer] pets and animals: No Smoking Status: Current every day smoker tobacco type: smokeless tobacco Smokeless tobacco user: chewing tobacco alcohol intake: current alcohol intake frequency: 3 or more drinks per day Alcohol type: beer details: drinks about 4 beers a day substance use type: does not use ROS <KT Murrell - Last Filed: 09/01/21 13:15> ROS ED ROS Narrative Constitutional: Negative for fever, chills, weight loss. Positive for weakness Eyes: Negative for vision loss, vision change, double vision ENT: Negative for any sore throat, ear pain, congestion Cardiovascular: Negative for any chest pain, tightness, palpitations, racing heartbeat Respiratory: Negative for any cough, sputum production, hemoptysis, shortness of breath, shortness of breath on exertion, orthopnea Gastrointestinal: Negative for any abdominal pain, nausea, vomiting, diarrhea, constipation, blood in stool, blood in vomit : Negative for any urinary frequency, incontinence, dysuria, retention, blood in urine Muscle skeletal: Negative for any muscle joint pain, stiffness, myalgias, arthralgias, neck pain, back pain Neurological: Negative for any headache, dizziness, numbness or tingling. Positive for syncope Skin: Negative for any rashes, lumps, itching, abrasions, lacerations Psychiatric: Negative for any depression, anxiety, stress, suicidal ideation, homicidal ideation Hematologic: Negative for any easy bruising, excessive bruising, easy bleeding Allergies: Negative for any eczema, hives, rash EXAM <Hank MorrisLINETTE mills-C - Last Filed: 09/01/21 13:15> Physical Exam Narrative Exam Narrative: Vital signs reviewed. Patient did receive orthostatic vital signs, when standing, his heart rate increased significantly. Patient has a generalized ill-appearing appearance, as well as appearing pale HEET: Head normocephalic atraumatic, TMs clear bilaterally. Posterior pharynx is clear, pale moist mucous membranes. Nares clear bilaterally. Neck: Supple with no lymphadenopathy or tenderness. No signs of meningismus, negative jolt sign. Cardiac: Regular rate and rhythm no murmurs gallops or rubs, equal peripheral pulses bilaterally. Respiratory: Lungs clear to auscultation bilaterally. No chest tenderness. Abdomen: Soft, nontender, nondistended. No abdominal bruit or pulsatile masses. No hepatosplenomegaly Extremities: No peripheral edema, no signs of gross trauma or deformity. Active full range of motion of all extremities. Neuro: Cranial nerves II through XII intact, no focal neurological deficits. Skin: Clean dry and intact with no rash, purpura, petechiae, vesicles or pustules. Backslash flank: No CVA tenderness, no midline spinal tenderness, no deformity. Psych: Normal mood and affect. No SI, HI or acute psychosis. Rectal: Rectal exam showed a significantly large prostate, negative for any gross red bleeding. Minimal stool in the rectal vault. Const Vital Signs: 09/01/21 10:53 09/01/21 11:27 09/01/21 11:48 Temperature 97.2 F L Temperature Source Temporal Pulse Rate 94 Pulse Rate [Lying] 83 Pulse Rate [Sitting (for 1 minute prior to obtaining)] 87 Pulse Rate [Standing (for 1 minute prior to obtaining)] 111 H Respiratory Rate 15 Respiratory Effort Normal Respiratory Pattern Normal Blood Pressure 201/76 H Blood Pressure [Lying] 165/64 H Blood Pressure [Sitting (for 1 minute prior to obtaining)] 163/74 H Blood Pressure [Standing (for 1 minute prior to obtaining)] 156/84 H Blood Pressure Mean 117 Blood Pressure Mean [Lying] 97 Blood Pressure Mean [Sitting (for 1 minute prior to obtaining)] 103 Blood Pressure Mean [Standing (for 1 minute prior to obtaining)] 108 Pulse Ox 100 Oxygen Delivery Method Room Air Positive cachectic General Appearance ED: cachectic Nutritional Appearance: cachectic <Dr. Cj Krishna DO - Last Filed: 09/01/21 15:27> Physical Exam Const Vital Signs: 09/01/21 10:53 09/01/21 11:27 09/01/21 11:48 Temperature 97.2 F L Temperature Source Temporal Pulse Rate 94 Pulse Rate [Lying] 83 Pulse Rate [Sitting (for 1 minute prior to obtaining)] 87 Pulse Rate [Standing (for 1 minute prior to obtaining)] 111 H Respiratory Rate 15 Respiratory Effort Normal Respiratory Pattern Normal Blood Pressure 201/76 H Blood Pressure [Lying] 165/64 H Blood Pressure [Sitting (for 1 minute prior to obtaining)] 163/74 H Blood Pressure [Standing (for 1 minute prior to obtaining)] 156/84 H Blood Pressure Mean 117 Blood Pressure Mean [Lying] 97 Blood Pressure Mean [Sitting (for 1 minute prior to obtaining)] 103 Blood Pressure Mean [Standing (for 1 minute prior to obtaining)] 108 Pulse Ox 100 Oxygen Delivery Method Room Air [facility] <KT Murrell - Last Filed: 09/01/21 13:15> [facility] Narrative Medical decision making narrative: Patient arrives in no distress, patient denies any pain patient appears nontoxic. Patient does appear pale. Patient presents to the emergency department with syncopal episode, concern for anemia. Patient did have blood work done yesterday, patient's hemoglobin was 7.4, today was 6.6. Patient's chemistries showed elevated creatinine and BUN, this was chronic. Patient's troponin was negative. Patient's EKG was unremarkable. Patient was orthostatic positive. Patient did receive a rectal exam, this did show positive stool occult. Patient was typed and screened, will be given 2 units of packed red blood cells. I do believe that this is a reason for his syncopal episodes as well as weakness. I did contact Dr. Friend gastroenterology, made him know that the patient will be admitted to the hospital. Lab Data Labs: Laboratory Results - last 24 hr 09/01/21 09/01/21 09/01/21 11:20 11:23 11:23 WBC 3.9 L RBC 2.38 L Hgb 6.6 L Hct 21.7 L MCV 91.2 MCH 27.7 MCHC 30.4 L RDW Std Deviation 55.3 H RDW Coeff of Jesus 16.6 H Plt Count 271 MPV 8.7 Immature Gran % (Auto) 1.300 H Neut % (Auto) 75.6 H Lymph % (Auto) 12.3 L [place] % (Auto) 7.7 Eos % (Auto) 2.3 Baso % (Auto) 0.8 Absolute Neuts (auto) 3.0 Absolute Lymphs (auto) 0.48 L Nucleated RBC % 0.5 Differential Comment SCANNED Sodium 135 L Potassium 4.2 Chloride 103 Carbon Dioxide 21.0 Anion Gap 11 BUN 31 H Creatinine 2.27 H Estim Creat Clear Calc 27.59 Est GFR (MDRD) Af Amer 37 L Est GFR (MDRD) Non-Af 31 L BUN/Creatinine Ratio 13.7 Glucose 147 H Calcium 8.0 L Troponin I High Sens 5 Urine Color Urine Clarity Urine pH Ur Specific [place] Urine Protein Urine Glucose (UA) Urine Ketones Urine Occult Blood Urine Nitrite Urine Bilirubin Urine Urobilinogen Ur Leukocyte Esterase Urine RBC Urine WBC Ur Squamous Epith Cells Urine Bacteria Urine Mucus Blood Type Antibody Screen Crossmatch See Detail 09/01/21 09/01/21 11:23 11:50 WBC RBC Hgb Hct MCV MCH MCHC RDW Std Deviation RDW Coeff of Jesus Plt Count MPV Immature Gran % (Auto) Neut % (Auto) Lymph % (Auto) [place] % (Auto) Eos % (Auto) Baso % (Auto) Absolute Neuts (auto) Absolute Lymphs (auto) Nucleated RBC % Differential Comment Sodium Potassium Chloride Carbon Dioxide Anion Gap BUN Creatinine Estim Creat Clear Calc Est GFR (MDRD) Af Amer Est GFR (MDRD) Non-Af BUN/Creatinine Ratio Glucose Calcium Troponin I High Sens Urine Color Yellow Urine Clarity Clear Urine pH 6.0 Ur Specific [place] 1.010 Urine Protein 100 H Urine Glucose (UA) Normal Urine Ketones Negative Urine Occult Blood 250 H Urine Nitrite Negative Urine Bilirubin Negative Urine Urobilinogen Normal Ur Leukocyte Esterase 25 H Urine RBC 50-100 SEEN Urine WBC 0-5 SEEN Ur Squamous Epith Cells 0-5 SEEN Urine Bacteria 2+ Urine Mucus RARE Blood Type A POSITIVE Antibody Screen NEGATIVE Crossmatch EKG Normal sinus rhythm: Comments: Normal sinus rhythm, rate of 82 bpm, OH interval 136 ms, QRS duration 94 ms, no acute ST elevation, no acute infarct noted <Dr. Cj Krishna, DO - Last Filed: 09/01/21 15:27> MDM MDM Narrative Medical decision making narrative: Patient seen and evaluated with nurse practitioner. Agree with assessment, work-up, plan. Patient individually examined and history was individually taken by myself. This is a 71-year-old male presenting with a syncopal episode. Patient had labs drawn yesterday which indicated that he was anemic with a hemoglobin of 6.6 which is lower than his chronic anemia. Orthostatic positive. Creatinine slightly elevated from his baseline at 2.27. BUN 31. Patient was typed, screened, crossmatched for 2 units of blood given his episode of syncope. He is Hemoccult positive. High- sensitivity troponin is 5. EKG on my interpretation is normal sinus rhythm with ventricular rate of 82 bpm without sign of ischemic change or dysrhythmia. Case was discussed with Dr. Naidu who is amenable to keeping the patient in the hospital here. Impression: 1. Acute blood loss anemia 2. GI bleed 3. Syncope 4. Acute kidney injury Lab Data Attestation: I reviewed the patient's lab results. Labs: Laboratory Results - last 24 hr 09/01/21 09/01/21 09/01/21 11:20 11:23 11:23 WBC 3.9 L RBC 2.38 L Hgb 6.6 L Hct 21.7 L MCV 91.2 MCH 27.7 MCHC 30.4 L RDW Std Deviation 55.3 H RDW Coeff of Jesus 16.6 H Plt Count 271 MPV 8.7 Immature Gran % (Auto) 1.300 H Neut % (Auto) 75.6 H Lymph % (Auto) 12.3 L [place] % (Auto) 7.7 Eos % (Auto) 2.3 Baso % (Auto) 0.8 Absolute Neuts (auto) 3.0 Absolute Lymphs (auto) 0.48 L Nucleated RBC % 0.5 Differential Comment SCANNED Sodium 135 L Potassium 4.2 Chloride 103 Carbon Dioxide 21.0 Anion Gap 11 BUN 31 H Creatinine 2.27 H Estim Creat Clear Calc 27.59 Est GFR (MDRD) Af Amer 37 L Est GFR (MDRD) Non-Af 31 L BUN/Creatinine Ratio 13.7 Glucose 147 H Calcium 8.0 L Troponin I High Sens 5 Urine Color Urine Clarity Urine pH Ur Specific [place] Urine Protein Urine Glucose (UA) Urine Ketones Urine Occult Blood Urine Nitrite Urine Bilirubin Urine Urobilinogen Ur Leukocyte Esterase Urine RBC Urine WBC Ur Squamous Epith Cells Urine Bacteria Urine Mucus Blood Type Antibody Screen Crossmatch See Detail 09/01/21 09/01/21 11:23 11:50 WBC RBC Hgb Hct MCV MCH MCHC RDW Std Deviation RDW Coeff of Jesus Plt Count MPV Immature Gran % (Auto) Neut % (Auto) Lymph % (Auto) [place] % (Auto) Eos % (Auto) Baso % (Auto) Absolute Neuts (auto) Absolute Lymphs (auto) Nucleated RBC % Differential Comment Sodium Potassium Chloride Carbon Dioxide Anion Gap BUN Creatinine Estim Creat Clear Calc Est GFR (MDRD) Af Amer Est GFR (MDRD) Non-Af BUN/Creatinine Ratio Glucose Calcium Troponin I High Sens Urine Color Yellow Urine Clarity Clear Urine pH 6.0 Ur Specific [place] 1.010 Urine Protein 100 H Urine Glucose (UA) Normal Urine Ketones Negative Urine Occult Blood 250 H Urine Nitrite Negative Urine Bilirubin Negative Urine Urobilinogen Normal Ur Leukocyte Esterase 25 H Urine RBC 50-100 SEEN Urine WBC 0-5 SEEN Ur Squamous Epith Cells 0-5 SEEN Urine Bacteria 2+ Urine Mucus RARE Blood Type A POSITIVE Antibody Screen NEGATIVE Crossmatch Discharge Plan Dx/Rx/DC Orders Clinical Impression: Acute lower gastrointestinal bleeding, Anemia, Syncope and collapse Disposition Disposition: Acute Care Hospital [facility] Discharge Date/Time: 09/01/21 13:50
[2021-09-01 11:36] LABS: Absolute Lymphocyte Count 0.48 X10^3/uL (0.83-4.51); Basophil# 0.03 X10^3/uL; Basophil% 0.8 % (0-1); Eosinophil# 0.09 X10^3/uL; Eosinophils% 2.3 % (0-5); Hematocrit 21.7 % (40-54); Hemoglobin 6.6 g/dL (13.0-16.5); Lymphocyte # 0.48 X10^3/ul (0.83-4.51); Lymphocyte % 12.3 % (19-41); Mean Corp Hgb Conc 30.4 g/dL (32-36); Mean Corpuscular Hgb 27.7 pg (27.0-32.0); Mean Corpuscular Volume 91.2 fL (80-94); Mean Platelet Vol. 8.7 fl (6.2-12.0); Monocyte% 7.7 % (0-10); NRBC Flagged by Analyzer 0.5 % (0-5); Neutrophil # 2.95 X10^3/uL (2.7-7.7); Neutrophil % 75.6 % (47-70); POSITIVE DIFFERENTIAL YES; Platelet Count 271 K/mm3 (150-450); RBC Distribution Width CV 16.6 % (11.6-14.6); RBC Distribution Width SD 55.3 fl (35.1-43.9); Red Blood Count 2.38 M/mm3 (4.6-6.2); White Blood Count 3.9 K/mm3 (4.4-11.0)
[2021-09-01 11:46] LABS: Differential Indicated SCAN CRITERIA MET
[2021-09-01 11:49] LABS: Anion Gap 11 (5-15); BUN 31 mg/dL (7-18); BUN/Creat Ratio 13.7 RATIO (10-20); Chloride 103 mmol/L (98-107); Creatinine, Serum 2.27 mg/dL (0.70-1.30); EST Glomerular Filtration Rate 31 mL/min (>60); Est Glom Filt Rate - Afr Amer 37 mL/min (>60); Estimated Creatinine Clearance 27.59 ml/min; Glucose 147 mg/dL (74-106); Potassium 4.2 mmol/L (3.5-5.1); Sodium Level 135 mmol/L (136-145); Troponin-I HS 5 pg/mL (3.0-78.0)
[2021-09-01 12:17] LABS: Differential Comment SCANNED
[2021-09-01 12:18] LABS: Color, Urine Yellow (Yellow); Glucose, Dipstick Normal (Normal); Ketone-Dipstick Negative (Negative); Leukocyte Esterase-Dipstick 25 /ul (Negative); Nitrite-Dipstick Negative (Negative); Occult Blood-Urine 250 /ul (Negative); Protein-Dipstick 100 mg/dl (Negative); Urine Bilirubin Dipstick Negative (Negative); Urine Clarity Clear (Clear); Urine Urobilinogen Normal (Normal)
[2021-09-01] MEDS: Acetaminophen 500 MG Tablet 1000 MG PO (12:18)
[2021-09-01 12:23] LABS: Bacteria 2+ /hpf (None Seen); Mucous, Urine RARE /hpf (<or=2+); Red Blood Cells-Urine 50-100 SEEN /hpf (0-5); Squamous Epithelial Cells - UA 0-5 SEEN /hpf (0-5); White Blood Cells 0-5 SEEN /hpf (0-5)
[2021-09-01] MEDS: 0.9% Normal Saline 1,000 ML 999 ML IV (12:38)
--- NOTE | 2021-09-01 12:55 | HP.PCM.HOS_ITS ---
[facility] - General General Date of Admission: 09/01/21 HPI Narrative YOLY ROB, is a 71 M with a PMH as outlined who presents with an extensive PMh as outlined. He was admitted via the ED on 09/01/2021 with a complaint of dizziness and near syncope. He has a history of metastatic prostate cancer and had TURP a few weeks ago. Patient states he subsequently had hematuria with passage of clots of the blood. He says he felt dizzy and had syncope about a week ago but subsequently came around. Yesterday he checked his hemoglobin with his PCP and was 7.3 so he was started on oral iron supplements though he had not picked up the prescription. He had been having lightheadedness and fatigue as well as weakness at home over the last few days. He was due to see his urologist today but felt too dizzy and lightheaded that he nearly passed out so he decided to come into the ED. He denied any chest pain, palpitations, nausea or vomiting. He denied any urinating of blood and denied any blood in his stool. He also denied any dark stools or any coffee-ground emesis. Review of systems otherwise negative. Vitals in the ED were blood pressure of 162/70, pulse rate of 75 and respiratory rate of 16 with temperature of 99.1 and he was saturating at 99% on room air. CBC showed wbc of 3.9, hb of 6.6 and platelets of 271. Chemistry showed sodium of 135, potassium of 4.2 and Cr of 2.27. Urinalysis showed 2+ bacteria. He is being admitted to be managed for near syncope due to acute symptomatic anemia. Of note, stool for occult blood done was also positive; patient stated that he had a colonoscopy a few weeks ago with removal of some polyps. [facility] Medical History Alcohol abuse Alcohol use Anemia Anxiety Arthritis Back injury Back pain BPH (benign prostatic hyperplasia) Colon cancer screening Constipation Depression Elevated PSA Former smoker History of steroid therapy History of transfusion Hypertension Hypocalcemia Kidney injury Lightheaded Loose, teeth Marijuana use Nocturia Prostate cancer Prostate disease Prostatic enlargement Psoriasis Smokeless tobacco use Wears glasses Home Medications calcium carbonate-vitamin D3 1 tab PO BID 06/21/21 [History Last Taken 09/01/21] tamsulosin 0.4 mg PO QHS 06/21/21 [History Last Taken 08/31/21] dutasteride 0.5 mg capsule 0.5 mg PO QHS 07/06/21 [History Last Taken 08/31/21] Eligard (3 month) 22.5 mg SUBCUT .Q3MO 07/25/21 [History Last Taken 08/16/21] cholecalciferol (vitamin D3) [Vitamin D3] 50 mcg PO DAILY 07/25/21 [History Last Taken 08/31/21] Xtandi 160 mg PO QHS 08/12/21 [History Last Taken 08/31/21] mirtazapine 15 mg PO QHS 08/12/21 [History Last Taken 08/31/21] amlodipine 10 mg tablet 10 mg PO QHS #90 tab 08/23/21 [Rx Last Taken 08/31/21] ferrous sulfate 325 mg PO DAILY 09/01/21 [History Last Taken Unknown] Allergy/AdvReac Type Severity Reaction Status Date / Time No Known Allergies Allergy Verified 08/23/21 10:11 Family History Father Anxiety Arthritis Diabetes CVA (cerebral vascular accident) Parkinsons Mother Arthritis Hypertension Surgical History H/O transurethral resection of prostate History of colonoscopy History of hernia repair Social History household members: spouse number of children: 2 current occupational status: retired current occupation: maintenance at [email or web address] pets and animals: No Smoking Status: Current every day smoker tobacco type: smokeless tobacco Smokeless tobacco user: chewing tobacco alcohol intake: current alcohol intake frequency: 3 or more drinks per day Alcohol type: beer details: drinks about 4 beers a day substance use type: does not use ROS Constitutional Constitutional: Reports fatigue, malaise and weakness; Denies anorexia, change in weight, chills or fever(s) Eyes Eyes: Denies change in vision ENT HEENT: Denies dysphagia, headache(s), nasal congestion or sore throat Cardiovascular Cardiovascular: Reports lightheadedness; Denies chest pain, dyspnea on exertion, edema, orthopnea, palpitations, paroxysmal nocturnal dyspnea, rapid heart rate or syncope Respiratory/Chest Respiratory/Chest: Denies cough, hemoptysis, productive cough, shortness of breath at rest or shortness of breath with exertion Gastrointestinal Gastrointestinal: Denies abdominal pain, coffee ground emesis, constipation, dyspepsia, hematemesis, hematochezia, melena, nausea or vomiting Genitourinary Genitourinary: Denies dysuria, nocturia, urinary hesitancy, urinary incontinence or urinary urgency Musculoskeletal Musculoskeletal: Denies arthralgias or joint swelling Neurologic Neurologic: Denies confusion, dizziness, focal weakness, headache(s), numbness, syncope, tingling or tremor(s) Psychiatric Psychiatric: Denies anxiety Vital Signs Vital Signs Vital Signs: 09/01/21 10:53 09/01/21 11:27 09/01/21 11:48 Temperature 97.2 F L Temperature Source Temporal Pulse Rate 94 Pulse Rate [Lying] 83 Pulse Rate [Sitting (for 1 minute prior to obtaining)] 87 Pulse Rate [Standing (for 1 minute prior to obtaining)] 111 H Respiratory Rate 15 Respiratory Effort Normal Respiratory Pattern Normal Blood Pressure 201/76 H Blood Pressure [Lying] 165/64 H Blood Pressure [Sitting (for 1 minute prior to obtaining)] 163/74 H Blood Pressure [Standing (for 1 minute prior to obtaining)] 156/84 H Blood Pressure Mean 117 Blood Pressure Mean [Lying] 97 Blood Pressure Mean [Sitting (for 1 minute prior to obtaining)] 103 Blood Pressure Mean [Standing (for 1 minute prior to obtaining)] 108 Pulse Ox 100 Oxygen Delivery Method Room Air Weight Weight: 140 lb Body Mass Index (BMI) 19.0 Physical Exam Const alert and oriented x3 General Appearance: cooperative HEENT normocephalic, head/scalp atraumatic, hearing grossly normal bilaterally and moist oral mucous membranes Eyes PERRL, EOMs intact bilaterally and conjunctivae normal Neck no lymphadenopathy, supple and no JVD Resp normal respiratory effort, no retractions, no use of accessory muscles and clear to auscultation bilaterally Cardio regular rate, regular rhythm, S1 normal heart sound, S2 normal heart sound and no murmurs GI normal to inspection, nondistended, normoactive bowel sounds, soft to palpation, non-tender and non-distended Extremity normal to inspection and full ROM Peripheral Pulses: Yes pulses 2+ throughout Skin no rashes or lesions noted Neuro oriented x3, CN's II-XII intact bilaterally and moves all extremities Sensorium / Orientation: awake and alert Psych affect normal Results Lab / Micro Data Result Diagrams: 09/02/21 05:25 09/02/21 05:25 Labs: Laboratory Results - last 24 hr 09/01/21 11:20: Crossmatch See Detail 09/01/21 11:23: WBC 3.9 L, RBC 2.38 L, Hgb 6.6 L, Hct 21.7 L, MCV 91.2, MCH 27. 7, MCHC 30.4 L, RDW Std Deviation 55.3 H, RDW Coeff of Jesus 16.6 H, Plt Count 271, MPV 8.7, Immature Gran % (Auto) 1.300 H, Neut % (Auto) 75.6 H, Lymph % (Auto) 12.3 L, [place] % (Auto) 7.7, Eos % (Auto) 2.3, Baso % (Auto) 0.8, Absolute Neuts (auto) 3.0, Absolute Lymphs (auto) 0.48 L, Nucleated RBC % 0.5, Differential Comment SCANNED 09/01/21 11:23: Sodium 135 L, Potassium 4.2, Chloride 103, Carbon Dioxide 21.0, Anion Gap 11, BUN 31 H, Creatinine 2.27 H, Estim Creat Clear Calc 27.59, Est GFR (MDRD) Af Amer 37 L, Est GFR (MDRD) Non-Af 31 L, BUN/Creatinine Ratio 13.7, Glucose 147 H, Calcium 8.0 L, Troponin I High Sens 5 09/01/21 11:23: Blood Type A POSITIVE, Antibody Screen NEGATIVE 09/01/21 11:50: Urine Color Yellow, Urine Clarity Clear, Urine pH 6.0, Ur Specific [place] 1.010, Urine Protein 100 H, Urine Glucose (UA) Normal, Urine Ketones Negative, Urine Occult Blood 250 H, Urine Nitrite Negative, Urine Bilirubin Negative, Urine Urobilinogen Normal, Ur Leukocyte Esterase 25 H, Urine RBC 50-100 SEEN, Urine WBC 0-5 SEEN, Ur Squamous Epith Cells 0-5 SEEN, Urine Bacteria 2+, Urine Mucus RARE Micro: Microbiology 09/01/21 12:10 Stool Stool Occult Blood (BRET) - Final Occult Blood Positive Assessment & Plan Assessment/Plan (1) Anemia: (2) Syncope and collapse: (3) Fecal occult blood test positive: PLAN: # Near syncope due to acute on chronic anemia * felt dizzy and lightheaded on his way to his urologist's office * was found to have hemoglobin of 6.6. Was 7.3 yesterday * stool for occult blood was positive. He denies any recent hematuria * He does say he recently had a colonoscopy with removal of some polyps * admit to PCU under stepdown criteria * transfuse with 2 units of PRBCs * consult gastroenterology * start on IV pantoprazole 40mg bid * hydrate with IVF NS @ 150cc/hr * check iron profile with ferritin * #Acute on chronic anemia: as above #Metastatic prostate cancer * says he has been told it has spread to his bones * s/p TURP * follow up with urology and oncology on outpatient basis * on xtandi, dutasteride, leuprolide and tamsulosin * * #Hypertension; on amlodipine; was recently increased to 10mg daily by his PCP #Depression: on mirtazapine 15mg qhs. DVT prophylaxis: SCDs. No anticoagulation due to acute on chronic anemia Code status: full code * Patient counseled extensively about different types of CODE STATUS including full code, DNR CCA and DNR CCA. Patient elects to be full code. * Total [id number] time 17 minutes. Charges/Coding Visit Charges Inpatient E&M: 04821 Init Hosp L3 Procedures Hospitalists Procedures: 38467 Advncd Care Plan 30 Min
--- NOTE | 2021-09-01 14:09 | EKG12_ITS ---
Test Reason : Blood Pressure : / mmHG Vent. Rate : 075 BPM Atrial Rate : 075 BPM P-R Int : 148 ms QRS Dur : 102 ms QT Int : 438 ms P-R-T Axes : 060 012 049 degrees QTc Int : 489 ms Normal sinus rhythm Nonspecific ST abnormality Prolonged QT Abnormal ECG When compared with ECG of 01-SEP-2021 11:37, MANUAL COMPARISON REQUIRED, DATA IS UNCONFIRMED Confirmed by MERISSA AGEE, [place] ([id number]), state editor YESSY FISHMAN ([id number]) on 09/05/2021 10:12:25 A M Referred By: NATASHA Confirmed By:BRAIN CRAVEN MD
[2021-09-01] MEDS: 0.9% Normal Saline 1,000 ML 150 ML IV (15:08)
[2021-09-01 15:37] LABS: Troponin-I HS 10 pg/mL (3.0-78.0)
--- NOTE | 2021-09-01 17:04 | CON.PCM_ITS ---
Assessment & Plan Assessment/Plan (1) Acute lower gastrointestinal bleeding: PLAN: The differential diagnosis for lower GI bleed would include hemorrhoidal bleed, diverticular bleed, neoplasia, ischemia. I do not suspect that he has an active bleed at this time. However he will need endoscopic evaluation for unexplained anemia. (2) Anemia: PLAN: Normocytic anemia possibly secondary to mixed iron deficiency anemia and macrocytic anemia. Also differential diagnosis would include occult GI bleed from the upper or lower GI tract from malignancy. He should undergo biochemical testing with celiac profile, LDH, CRP, ESR. HPI Consult Data Date of Consult: 09/01/21 HPI Narrative HPI Narrative: YOLY ROB, is a 71 M who presents to the ED with progressive weakness and fatigue like symptoms. He has a past medical history of prostate cancer with metastasis, hypertension, history of anemia presents the emergency department with syncopal episode x2. For the last week, patient has been feeling more and more weak, he did have a syncopal episode 5 days ago, squad was called however he felt much better and did not want to come into the hospital. Today, the patient had an appointment with his urologist however he was so weak and he had a syncopal episode in the shower that he is here for evaluation. He denies any blood in his stool, he does state to have slight pink tinge urine secondary to a TURP procedure done greater than 2 weeks ago. He denies any chest pain or shortness of breath. Denies any recent long trips, blood clots in the legs or lungs. He has no previous history of liver disease but does admit t o drink a lot of beer in the past. He can remain the last time he had a being and is never upper endoscopy. He has been on ferrous sulfate therapy 1 a day for several days. [facility] Medical History Alcohol abuse Alcohol use Anemia Anxiety Arthritis Back injury Back pain BPH (benign prostatic hyperplasia) Colon cancer screening Constipation Depression Elevated PSA Former smoker History of steroid therapy History of transfusion Hypertension Hypocalcemia Kidney injury Lightheaded Loose, teeth Marijuana use Nocturia Prostate cancer Prostate disease Prostatic enlargement Psoriasis Smokeless tobacco use Wears glasses Home Medications calcium carbonate-vitamin D3 1 tab PO BID 06/21/21 [History Last Taken 09/01/21] tamsulosin 0.4 mg PO QHS 06/21/21 [History Last Taken 08/31/21] dutasteride 0.5 mg capsule 0.5 mg PO QHS 07/06/21 [History Last Taken 08/31/21] Eligard (3 month) 22.5 mg SUBCUT .Q3MO 07/25/21 [History Last Taken 08/16/21] cholecalciferol (vitamin D3) [Vitamin D3] 50 mcg PO DAILY 07/25/21 [History Last Taken 08/31/21] Xtandi 160 mg PO QHS 08/12/21 [History Last Taken 08/31/21] mirtazapine 15 mg PO QHS 08/12/21 [History Last Taken 08/31/21] amlodipine 10 mg tablet 10 mg PO QHS #90 tab 08/23/21 [Rx Last Taken 08/31/21] ferrous sulfate 325 mg PO DAILY 09/01/21 [History Last Taken Unknown] Allergy/AdvReac Type Severity Reaction Status Date / Time No Known Allergies Allergy Verified 08/23/21 10:11 Family History Father Anxiety Arthritis Diabetes CVA (cerebral vascular accident) Parkinsons Mother Arthritis Hypertension Surgical History H/O transurethral resection of prostate History of colonoscopy History of hernia repair Social History household members: spouse number of children: 2 current occupational status: retired 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 [employer] pets and animals: No Smoking Status: Current every day smoker tobacco type: smokeless tobacco Smokeless tobacco user: chewing tobacco alcohol intake: current alcohol intake frequency: 3 or more drinks per day Alcohol type: beer details: drinks about 4 beers a day substance use type: does not use ROS Review of Systems ROS Unobtainable: other Constitutional Constitutional: Denies fatigue, fever(s), poor appetite, weight gain or weight loss ENT HEENT: Denies mouth lesions Cardiovascular Cardiovascular: Denies abdominal bloating, abdominal edema or abdominal pain Respiratory/Chest Respiratory/Chest: Denies change in mental status, change in phlegm color, chest congestion or chest tightness Gastrointestinal Gastrointestinal: Denies belching, bloating, change in bowel habits, change in stool character, chewing difficulty, coffee ground emesis, constipation, cramping, diarrhea, dyspepsia, dysphagia, early satiety, excessive flatus, fecal incontinence, heartburn, hematemesis, hematochezia, hemorrhoids, loose stools, melena, nausea, odynophagia, rectal bleeding, tenesmus, vomiting or weight changes Genitourinary Genitourinary: Denies abdominal discomfort, burning urination or itching Musculoskeletal Musculoskeletal: Reports as per HPI; Denies muscle weakness or myalgias Integumentary Integumentary: Denies jaundice Neurologic Neurologic: Denies lack of coordination or weakness Psychiatric Psychiatric: Denies confusion, depression, memory loss, mood swings, paranoia or suicidal ideation Endocrine Endocrinology: Denies systems reviewed and no addt'l complaints, except as documented Hematologic/Lymphatic Hematologic/Lymphatic: Denies anemia, easy bleeding, easy bruising or lympha denopathy Allergic/Immunologic Allergic/Immunologic: Denies systems reviewed and no addt'l complaints, except as documented Physical Exam Const alert General Appearance: cooperative Orientation / Consciousness: oriented to person HEENT hearing grossly normal bilaterally Head and Scalp: normal to inspection Face and Sinus: face symmetric Nose: external nose normal Mouth: oral and palatal mucosa normal Eyes conjunctivae normal General Eye: normal appearance of both eyes Neck full ROM General: normal visual inspection Lymph Lymphatic: no lymphadenopathy noted Chest inspection of chest normal and palpation of chest normal Chest: symmetrical chest wall rise Resp normal respiratory effort Effort and Inspection: able to speak in complete sentences Cardio regular rate GI non-distended Percussion: normal to percussion Rectal Exam: deferred Neuro Speech: speech normal Gait (Neuro): normal gait Lab / Micro Data Result Diagrams: 09/01/21 11:23 09/01/21 11:23 Labs: Laboratory Results - last 24 hr 09/01/21 11:20: Crossmatch See Detail 09/01/21 11:23: WBC 3.9 L, RBC 2.38 L, Hgb 6.6 L, Hct 21.7 L, MCV 91.2, MCH 27. 7, MCHC 30.4 L, RDW Std Deviation 55.3 H, RDW Coeff of Jesus 16.6 H, Plt Count 271, MPV 8.7, Immature Gran % (Auto) 1.300 H, Neut % (Auto) 75.6 H, Lymph % (Auto) 12.3 L, [place] % (Auto) 7.7, Eos % (Auto) 2.3, Baso % (Auto) 0.8, Absolute Neuts (auto) 3.0, Absolute Lymphs (auto) 0.48 L, Nucleated RBC % 0.5, Differential Comment SCANNED 09/01/21 11:23: Sodium 135 L, Potassium 4.2, Chloride 103, Carbon Dioxide 21.0, Anion Gap 11, BUN 31 H, Creatinine 2.27 H, Estim Creat Clear Calc 27.59, Est GFR (MDRD) Af Amer 37 L, Est GFR (MDRD) Non-Af 31 L, BUN/Creatinine Ratio 13.7, Glucose 147 H, Calcium 8.0 L, Troponin I High Sens 5 09/01/21 11:23: Blood Type A POSITIVE, Antibody Screen NEGATIVE 09/01/21 11:50: Urine Color Yellow, Urine Clarity Clear, Urine pH 6.0, Ur Specific [place] 1.010, Urine Protein 100 H, Urine Glucose (UA) Normal, Urine Ketones Negative, Urine Occult Blood 250 H, Urine Nitrite Negative, Urine Bilirubin Negative, Urine Urobilinogen Normal, Ur Leukocyte Esterase 25 H, Urine RBC 50-100 SEEN, Urine WBC 0-5 SEEN, Ur Squamous Epith Cells 0-5 SEEN, Urine Bacteria 2+, Urine Mucus RARE 09/01/21 14:54: Troponin I High Sens 10 Micro: Microbiology 09/01/21 12:10 Stool Stool Occult Blood (BRET) - Final Occult Blood Positive Charges/Coding Visit Charges Inpatient E&M: 07527 Init Hosp L2
[2021-09-01 18:09] LABS: Ferritin 275 ng/mL (26-388); Iron 18 ug/dL (65-175); Iron Binding Capacity,Total 220 ug/dL (250-450); PERCENT IRON SATURATION 8.2 % (15.0-55.0); Troponin-I HS 8 pg/mL (3.0-78.0)
[2021-09-01] MEDS: Metoclopramide 10 MG/2 ML Vial 5 MG IV (18:52)
[2021-09-01] MEDS: 0.9% Saline Lock 10 ML Syringe IV (18:54)
[2021-09-01] MEDS: Bisacodyl 5 MG Tablet 20 MG PO (19:35)
[2021-09-01] MEDS: Electrolyte Solution/Peg's 4000 ML PO (19:36)
[2021-09-01] MEDS: Calcium Carb/Vitamin D 1 TABLET Tablet PO (22:07)
[2021-09-02] VITALS (19 sets, daily range): BP systolic 139–160; BP diastolic 68–76; PULSE 58–72; RESP 16–18; TEMP 36.2–36.7; O2SAT 97–100; BMI 18.4
[2021-09-02] MEDS: 0.9% Normal Saline 1,000 ML 150 ML IV
[2021-09-02] MEDS: Metoclopramide 10 MG/2 ML Vial 5 MG IV ×3 (05:19→11:08)
[2021-09-02 06:19] LABS: Hematocrit 24.8 % (40-54); Mean Corp Hgb Conc 32.3 g/dL (32-36); Mean Corpuscular Hgb 29.2 pg (27.0-32.0); Mean Corpuscular Volume 90.5 fL (80-94); Mean Platelet Vol. 8.8 fl (6.2-12.0); Platelet Count 222 K/mm3 (150-450); RBC Distribution Width CV 15.9 % (11.6-14.6); RBC Distribution Width SD 52.4 fl (35.1-43.9); Red Blood Count 2.74 M/mm3 (4.6-6.2); White Blood Count 3.4 K/mm3 (4.4-11.0)
[2021-09-02 06:50] LABS: Anion Gap 10 (5-15); BUN 31 mg/dL (7-18); BUN/Creat Ratio 13.8 RATIO (10-20); Calcium,Total 7.7 mg/dL (8.5-10.1); Chloride 111 mmol/L (98-107); Creatinine, Serum 2.25 mg/dL (0.70-1.30); EST Glomerular Filtration Rate 31 mL/min (>60); Est Glom Filt Rate - Afr Amer 37 mL/min (>60); Estimated Creatinine Clearance 27.04 ml/min; Glucose 88 mg/dL (74-106); Potassium 3.9 mmol/L (3.5-5.1); Sodium Level 139 mmol/L (136-145)
[2021-09-02] MEDS: Calcium Carb/Vitamin D 1 TABLET Tablet PO ×2 (10:04→21:02)
[2021-09-02] MEDS: Cholecalciferol (VIT D3) 25 MCG TABLET (1,000 UNITS) 50 MCG PO (10:04)
[2021-09-02] MEDS: Ferrous Sulfate 325 MG Tablet PO (10:10)
[2021-09-02] MEDS: Ceftriaxone 1 GM/50 ML BAG IV (11:04)
[2021-09-02] MEDS: 0.9% Normal Saline 1,000 ML 15 ML IV (11:05)
--- NOTE | 2021-09-02 11:26 | PN.HOSP_ITS ---
Subjective Subjective Patient seen and examined. He said he felt much better today and had no active complaints. He denied having any dark stools or any hematochezia overnight. Review of systems is otherwise negative. He is due for colonoscopy today. Objective Data Objective Data Vital Signs: Vital Signs Temp Pulse Resp BP Pulse Ox 98.1 F 68 16 142/76 H 99 09/02/21 07:48 09/02/21 07:53 09/02/21 07:48 09/02/21 07:48 09/02/21 07:48 Oxygen Delivery Method Room Air Weight: 136 lb Body Mass Index (BMI) 18.4 Intake & Output: Intake and Output for Last 24 Hours 08/31/21 09/01/21 09/02/21 23:59 23:59 23:59 Intake Total 2220.0 / 2220.0 510 / 510 Balance 2220.0 / 2220.0 510 / 510 Lab / Micro Data Result Diagrams: 09/02/21 05:25 09/02/21 05:25 Labs: Laboratory Results - last 24 hr 09/01/21 11:20: Crossmatch See Detail 09/01/21 11:23: WBC 3.9 L, RBC 2.38 L, Hgb 6.6 L, Hct 21.7 L, MCV 91.2, MCH 27.7, MCHC 30.4 L, RDW Std Deviation 55.3 H, RDW Coeff of Jesus 16.6 H, Plt Count 271, MPV 8.7, Immature Gran % (Auto) 1.300 H, Neut % (Auto) 75.6 H, Lymph % (Auto) 12.3 L, [place] % (Auto) 7.7, Eos % (Auto) 2.3, Baso % (Auto) 0.8, Absolute Neuts (auto) 3.0, Absolute Lymphs (auto) 0.48 L, Nucleated RBC % 0.5, Differential Comment SCANNED, Diff Path Review August09/01/21 11:23: Sodium 135 L, Potassium 4.2, Chloride 103, Carbon Dioxide 21.0, Anion Gap 11, BUN 31 H, Creatinine 2.27 H, Estim Creat Clear Calc 27.59, Est GFR (MDRD) Af Amer 37 L, Est GFR (MDRD) Non-Af 31 L, BUN/Creatinine Ratio 13.7, Glucose 147 H, Calcium 8.0 L, Troponin I High Sens 5 09/01/21 11:23: Blood Type A POSITIVE, Antibody Screen NEGATIVE 09/01/21 11:50: Urine Color Yellow, Urine Clarity Clear, Urine pH 6.0, Ur Specific [place] 1.010, Urine Protein 100 H, Urine Glucose (UA) Normal, Urine Ketones Negative, Urine Occult Blood 250 H, Urine Nitrite Negative, Urine Bilirubin Negative, Urine Urobilinogen Normal, Ur Leukocyte Esterase 25 H, Urine RBC 50-100 SEEN, Urine WBC 0-5 SEEN, Ur Squamous Epith Cells 0-5 SEEN, Urine Bacteria 2+, Urine Mucus RARE 09/01/21 14:54: Troponin I High Sens 10 09/01/21 17:33: Iron 18 L, TIBC 220 L, Iron Saturation 8.2 L, Ferritin 275, Troponin I High Sens 8 09/02/21 05:25: WBC 3.4 L, RBC 2.74 L, Hgb 8.0 L, Hct 24.8 L, MCV 90.5, MCH 29.2, MCHC 32.3 D, RDW Std Deviation 52.4 H, RDW Coeff of Jesus 15.9 H, Plt Count 222, MPV 8.8 09/02/21 05:25: Sodium 139, Potassium 3.9, Chloride 111 H, Carbon Dioxide 18.0 L , Anion Gap 10, BUN 31 H, Creatinine 2.25 H, Estim Creat Clear Calc 27.04, Est GFR (MDRD) Af Amer 37 L, Est GFR (MDRD) Non-Af 31 L, BUN/Creatinine Ratio 13.8, Glucose 88, Calcium 7.7 L Micro: Microbiology 09/01/21 12:10 Stool Stool Occult Blood (BRET) - Final Occult Blood Positive Physical Exam Const alert, oriented x3 and no apparent distress General Appearance: cooperative HEENT normocephalic, head/scalp atraumatic, hearing grossly normal bilaterally and moist oral mucous membranes Head and Scalp: normocephalic Eyes PERRL, EOMs intact bilaterally and conjunctivae normal Neck no lymphadenopathy, supple and no JVD Resp normal respiratory effort, no retractions, no use of accessory muscles and clear to auscultation bilaterally Cardio regular rate, regular rhythm, S1 normal heart sound, S2 normal heart sound and no murmurs GI normal to inspection, nondistended, normoactive bowel sounds, soft to palpation, non-tender and non-distended Extremity normal to inspection, full ROM and no clubbing, cyanosis or edema Peripheral Pulses: Yes pulses 2+ throughout Skin no rashes or lesions noted Neuro oriented x3, CN's II-XII intact bilaterally and moves all extremities Sensorium / Orientation: awake and alert Psych affect normal Assessment & Plan Assessment/Plan (1) Anemia: (2) Syncope and collapse: (3) Fecal occult blood test positive: PLAN: # Near syncope due to acute on chronic anemia * dizziness has improved * s/p transfusion with 2 units of PRBCs * Hb today is 8. * on IV pantoprazole 40mg bid * for colonoscopy today. GI on board * iron panel showed iron of 18, with low iron saturation of 8.2% and low total iron binding capacity; ferritin was WNL at 275. * this is more indicative of anemia of chronic disease. * continue gentle hydration with IVF * * #Acute on chronic anemia: as above #Metastatic prostate cancer * says he has been told it has spread to his bones * s/p TURP * follow up with urology and oncology on outpatient basis * on xtandi, dutasteride, leuprolide and tamsulosin * * #Hypertension; on amlodipine; was recently increased to 10mg daily by his PCP #Depression: on mirtazapine 15mg qhs. DVT prophylaxis: SCDs. No anticoagulation due to acute on chronic anemia Code status: full code * Charges/Coding Visit Charges Inpatient E&M: 23441 Subs Hosp L2
--- NOTE | 2021-09-02 11:40 | CASEMGMT ---
RN CHARLY FRUIT HARVESTER CM to room to meet with patient for initial transition planning/care coordination assessment. ANDREWS PARKS introduced self and role at [facility]. Pt voices understanding and consents to assessment at this time. Pt resting in bed in no distress at this time. Pt is A/O at this time and answers all questions appropriately. Care providers, pharmacy, and demographics verified/updated at this time. PCP: Dr De Guzman Specialists: Dr Hermosillo-oncology, Dr Leiva-urology Preferred Pharmacy:[facility] Marc Insurance: MCR A/B Prescription Benefit: None Living Will/HPOA: Pt does not currently have LW/HCPOA and declines info at this time. LNOK: , Consuelo Living Arrangements: Lives w/his and 21-yr-old disabled daughter that pt and take care of. They live in a 2-story home. [employer]. Ramp entrance. Pt states is independent @ baseline. manages home tasks. Pt manages outdoor/yard-work. Transportation: Pt states he does drive some, but does most of the driving. DME: Denies using any DME and denies needs. HHC/SNF: No hx of either. Denies needs for HHC and no needs identified. Pt wishes to return home and states has no concerns with going home at time of discharge. Pt states does not smoke. He states he used to drink 8 beers/day until fall and then he went down to 2 or 3 beers/day. He states he has only had 2 beers since his TURP about 1 1/2 weeks ago. He declines wanting any resources to help stop drinking. CM to follow for any discharge planning/needs. Pt voices no concerns/needs at this time. Advised pt to ask for CM if any questions/concerns/needs arise. Voices understanding. PLAN: Home w/spousal support and discharge plans in place. Isabella GARCIA RN, CM
--- NOTE | 2021-09-02 16:30 | COLBX_PTH ---
PATIENT: YOLY ROB LOC: [facility] U#:[id number] AGE/SX: 71/M ROOM: [facility] RE09/01/[address]: Dr. Erum Thacker MD : 1950 BED: 1 DIS: 09/03/2021 SPEC #: [id number] RECD: 09/02/21 18:03 STATUS: HUA KAUFMANLauren #: [id number] KRISTAN: 09/02/21 16:[address]: Adiel Naidu DEPT: SURGICAL PATHOLOGY RECD BY: Cassidy Griffin ENTERED: 09/05/21 08:27 SP TYPE: COLON BX OTHR DR: MD Dr. Erum Coleman MD Tissues: A - COLON BIOPSY B - Sigmoid colon biopsy Procedures: Surgery Specimen Level IV HEADER OPERATION: Colonoscopy, EGD ([facility] – [place]) PRE-OP DIAGNOSIS: Acute lower GI bleeding, anemia TISSUE SUBMITTED: A ? Jejunal polyp, B ? Sigmoid colon polyp MICROSCOPIC DIAGNOSIS A. Jejunal polyp, biopsy: Tubular adenoma. B. Sigmoid colon polyp, biopsy: Fragments of tubular adenoma. AM:elia 09/06/2021 MICROSCOPIC DESCRIPTION Slides are reviewed. GROSS DESCRIPTION A - Received in fixative is one container labeled with the patient's name and designated jejunal polyp. The specimen consists of two irregular fragments of light gutierrez soft tissue that in aggregate measure 0.6 x 0.2 x 0.1 cm. The specimen is totally submitted in one cassette. B - Received in fixative is one container labeled with the patient's name and designated sigmoid colon polyp. The specimen consists of multiple irregular fragments of light gutierrez soft tissue that in aggregate measure 1 x 0.5 x 0.1 cm. The specimen is totally submitted in one cassette. / SJ:elia 09/05/2021 TC:5 CPT: 98677 x2
[2021-09-02] MEDS: Tamsulosin HCl 0.4 MG Capsule PO (21:02)
[2021-09-02] MEDS: Finasteride 5 MG Tablet PO (21:02)
[2021-09-02] MEDS: Mirtazapine 15 MG Tablet PO (21:03)
[2021-09-02] MEDS: ENZALUTAMIDE 80 MG TABLET 160 MG PO (21:03)
[2021-09-02] MEDS: amLODIPine 10 MG Tablet PO (21:14)
[2021-09-03] MEDS: Metoclopramide 10 MG/2 ML Vial 5 MG IV ×3 (00:44→12:37)
[2021-09-03 02:00] VITALS: BP 155/68; PULSE 70; RESP 18; TEMP 36.7; O2SAT 98
[2021-09-03 03:03] VITALS: PULSE 91
[2021-09-03 06:36] LABS: Hematocrit 27.4 % (40-54); Hemoglobin 8.7 g/dL (13.0-16.5); Mean Corp Hgb Conc 31.8 g/dL (32-36); Mean Corpuscular Hgb 28.7 pg (27.0-32.0); Mean Corpuscular Volume 90.4 fL (80-94); Mean Platelet Vol. 8.7 fl (6.2-12.0); Platelet Count 236 K/mm3 (150-450); RBC Distribution Width SD 53.1 fl (35.1-43.9); Red Blood Count 3.03 M/mm3 (4.6-6.2); White Blood Count 4.7 K/mm3 (4.4-11.0)
[2021-09-03 07:02] LABS: Anion Gap 9 (5-15); BUN 28 mg/dL (7-18); BUN/Creat Ratio 12.5 RATIO (10-20); Calcium,Total 7.1 mg/dL (8.5-10.1); Chloride 110 mmol/L (98-107); Creatinine, Serum 2.24 mg/dL (0.70-1.30); EST Glomerular Filtration Rate 31 mL/min (>60); Est Glom Filt Rate - Afr Amer 38 mL/min (>60); Estimated Creatinine Clearance 27.16 ml/min; Glucose 124 mg/dL (74-106); Potassium 3.7 mmol/L (3.5-5.1); Sodium Level 137 mmol/L (136-145)
[2021-09-03 07:07] VITALS: PULSE 73
[2021-09-03 07:38] VITALS: O2SAT 95
[2021-09-03 07:57] VITALS: BP 129/65; PULSE 76; RESP 18; TEMP 37.3; O2SAT 99
[2021-09-03] MEDS: Cholecalciferol (VIT D3) 25 MCG TABLET (1,000 UNITS) 50 MCG PO (09:34)
[2021-09-03] MEDS: Ferrous Sulfate 325 MG Tablet PO (09:35)
[2021-09-03] MEDS: Calcium Carb/Vitamin D 1 TABLET Tablet PO (09:35)
[2021-09-03] MEDS: Ceftriaxone 1 GM/50 ML BAG IV (10:33)
[2021-09-03] MEDS: 0.9% Saline Lock 10 ML Syringe IV (12:37)
--- NOTE | 2021-09-03 12:52 | DS.PCM_ITS ---
Providers Date of Admission: 09/01/21 Primary Care Physician: Dr. Estefany De Guzman MD Consultations 09/01/21 14:09 Consult: Gastroenterology Routine Consulting Provider: [facility] Reason for Consult: acute on chronic anemia, rectal bleeding EMERGENT Consult: No MD Notified: Yes Date Notified: 09/01/21 Time Notified: 13:29 Method of Notification: Text Reason For Visit: ACUTE SYMPTOMATIC ANEMIA Diagnosis Discharge Diagnosis (1) Anemia: Status: Acute Code(s): D64.9 - Anemia, unspecified (2) Syncope and collapse: Status: Acute Code(s): R55 - Syncope and collapse (3) Fecal occult blood test positive: Status: Acute Code(s): R19.5 - Other fecal abnormalities Medications at Discharge Home Medications calcium carbonate-vitamin D3 1 tab PO BID 06/21/21 tamsulosin 0.4 mg PO QHS 06/21/21 dutasteride 0.5 mg capsule 0.5 mg PO QHS 07/06/21 Eligard (3 month) 22.5 mg SUBCUT .Q3MO 07/25/21 cholecalciferol (vitamin D3) [Vitamin D3] 50 mcg PO DAILY 07/25/21 Xtandi 160 mg PO QHS 08/12/21 mirtazapine 15 mg PO QHS 08/12/21 amlodipine 10 mg tablet 10 mg PO QHS #90 tab 08/23/21 ferrous sulfate 325 mg PO DAILY 09/01/21 cefdinir 300 mg PO BID #10 cap 09/03/21 Hospital Course Operations None Procedures Colonoscopy Summary of Care Provided Minutes Spent on Discharge: 45 Hospital Course: YOLY ROB, is a 71 M with a PMH as outlined who presents with an extensive PMh as outlined. He was admitted via the ED on 09/01/2021 with a complaint of dizziness and near syncope. He has a history of metastatic prostate cancer and had TURP a few weeks ago. Patient states he subsequently had hematuria with passage of clots of the blood. He says he felt dizzy and had syncope about a week ago but subsequently came around. Yesterday he checked his hemoglobin with his PCP and was 7.3 so he was started on oral iron supplements though he had not picked up the prescription. He had been having lightheadedness and fatigue as well as weakness at home over the last few days. He was due to see his urologist today but felt too dizzy and lightheaded that he nearly passed out so he decided to come into the ED. He denied any chest pain, palpitations, nausea or vomiting. He denied any urinating of blood and denied any blood in his stool. He also denied any dark stools or any coffee-ground emesis. Review of systems otherwise negative. Vitals in the ED were blood pressure of 162/70, pulse rate of 75 and respiratory rate of 16 with temperature of 99.1 and he was saturating at 99% on room air. CBC showed wbc of 3.9, hb of 6.6 and platelets of 271. Chemistry showed sodium of 135, potassium of 4.2 and Cr of 2.27. Urinalysis showed 2+ bacteria. He was admitted to be managed for near syncope due to acute symptomatic anemia. Of note, stool for occult blood done was also positive; patient stated that he had a colonoscopy a few weeks ago with removal of some polyps. Gastroenterology was consulted. Patient was hydrated with IV fluids and transfused with 2 units of packed red blood cells. Hemoglobin came up to 8.7. He had colonoscopy which showed no evidence of bleeding but showed some polyps which were removed. He was placed on IV pantoprazole. He remained stable and felt much better. Of note urinalysis also showed evidence of 2+ bacteria and in light of his recent TURP, he was started on IV ceftriaxone for UTI. Patient remained stable and he was discharged home on 09/03/2021. He is to follow-up wi th his primary care doctor and is to follow-up with gastroenterology on outpatient basis. He was discharged on p.o. cefdinir 300 mg twice daily for 5 days. Patient was seen and examined prior to discharge. He had no active complaints and had an uneventful night. Review of systems otherwise negative. Labs and vitals reviewed. Home medication reviewed and reconciled. Physical Exam Const alert, oriented x3 and no apparent distress General Appearance: cooperative, comfortable and well kempt HEENT normocephalic, head/scalp atraumatic, hearing grossly normal bilaterally and moist oral mucous membranes Eyes PERRL, EOMs intact bilaterally and conjunctivae normal Neck no lymphadenopathy, supple and no JVD Resp normal respiratory effort, no retractions, no use of accessory muscles and clear to auscultation bilaterally Cardio regular rate, regular rhythm, S1 normal heart sound, S2 normal heart sound and no murmurs GI normal to inspection, nondistended, normoactive bowel sounds, soft to palpation, non-tender and non-distended Extremity normal to inspection, full ROM and no clubbing, cyanosis or edema Skin no rashes or lesions noted Neuro oriented x3, CN's II-XII intact bilaterally and moves all extremities Sensorium / Orientation: awake and alert Psych affect normal Weight / BMI Weight Weight: 136 lb 0.015 oz Body Mass Index (BMI) 18.4 ABG / Lab / Microbiology Data Result Diagrams: 09/03/21 05:10 09/03/21 05:10 Laboratory: Laboratory Results - last 24 hr 09/03/21 05:10: WBC 4.7, RBC 3.03 L, Hgb 8.7 L, Hct 27.4 L, MCV 90.4, MCH 28.7, MCHC 31.8 L, RDW Std Deviation 53.1 H, RDW Coeff of Jesus 16.0 H, Plt Count 236, MPV 8.7 09/03/21 05:10: Sodium 137, Potassium 3.7, Chloride 110 H, Carbon Dioxide 18.0 L , Anion Gap 9, BUN 28 H, Creatinine 2.24 H, Estim Creat Clear Calc 27.16, Est GFR (MDRD) Af Amer 38 L, Est GFR (MDRD) Non-Af 31 L, BUN/Creatinine Ratio 12.5, Glucose 124 H, Calcium 7.1 L Microbiology: Microbiology 09/01/21 12:10 Stool Stool Occult Blood (BRET) - Final Occult Blood Positive D/C Instructions Discharge Diet: Low fat / Low cholesterol Discharge Activity: Return to Normal Activity Weight Bearing Status: Weight bearing as tolerated Call your doctor if you observe: Fever of 101 or Higher, Shortness of breath, Dizziness, Swelling in the ankles and Increased palpitations (irregular heartbeat) Meaningful Use Info Meaningful Use Diagnoses (Choose all that apply): None applicable Discharge Plan Admission Admit Date/Time: 09/01/21 13:23 Primary Reason for Your Visit: near syncope Attending Provider: Erum Thacker Primary Care Provider: Estefany De Guzman Instructions Patient Instructions: ED Lower GI Bleeding (Stable), ED Bladder Infection, Male (Adult) Discharge Orders/Prescriptions Prescriptions: New cefdinir 300 mg capsule 300 mg PO BID Qty: 10 RF: 0 Continued dutasteride 0.5 mg capsule 0.5 mg PO QHS RF: 0 amlodipine 10 mg tablet 10 mg PO QHS Qty: 90 RF: 3 tamsulosin 0.4 mg Capsule 0.4 mg PO QHS RF: 0 calcium carbonate-vitamin D3 500 mg-3.125 mcg (125 unit) Tablet 1 tab PO BID RF: 0 cholecalciferol (vitamin D3) [Vitamin D3] 50 mcg (2,000 unit) Capsule 50 mcg PO DAILY RF: 0 Eligard (3 month) 22.5 mg Syringe 22.5 mg SUBCUT .Q3MO RF: 0 Xtandi 80 mg Tablet 160 mg PO QHS RF: 0 mirtazapine 15 mg tablet 15 mg PO QHS RF: 0 ferrous sulfate 325 mg (65 mg iron) tablet 325 mg PO DAILY RF: 0 Referrals / Follow Up: Estefany De Guzman MD [Primary Care Provider] - Within 1 Week Nash Leiva MD [STAFF PHYSICIAN] - Within 2 Weeks Adiel Naidu DO [STAFF PHYSICIAN] - Within 2 Weeks Disposition Disposition (needs filled in before D/C Order can be placed): Home, Self Care Charges/Coding Visit Charges Inpatient E&M: 63917 Disch Hosp
[2021-09-03 13:55] VITALS: BP 152/79; PULSE 70; RESP 20; TEMP 36.3; O2SAT 100
--- NOTE | 2021-09-03 14:18 | NURSING ---
Reviewed charting with Isabel Sanon RN
[2021-09-05 15:30] LABS: Pathologist Review Reviewed
[2021-09-06 08:11] LABS: Endomysial Antibody IgA Negative (Negative)
[2021-09-06 14:56] LABS: Deamidated Gliadin IgA 2 units (0-19); Deamidated Gliadin IgG 2 units (0-19); Immunoglobulin A 107 mg/dL (61-437); t-Transglutaminase IgA <2 U/mL (0-3)
--- NOTE | 2022-01-13 06:21 | OP.COLON_ITS ---
Patient Name: Jose Virgen Procedure Date: 09/02/2021 4:49 PM Date of : 1950 Age: 71 Procedure: Colonoscopy Indications: Hematochezia Providers: Adiel Naidu DO Medicines: Monitored Anesthesia Care Patient Profile: Last Colonoscopy: within the past month. This is a 71 year old male. Refer to note in patient chart for documentation of history and physical. Patient has symptoms. Complications: No immediate complications. Procedure: Pre-Anesthesia Assessment: - Prior to the procedure, a History and Physical was performed, and patient medications and allergies were reviewed. The patient is competent. The risks and benefits of the procedure and the sedation options and risks were discussed with the patient. All questions were answered and informed consent was obtained. Patient identification and proposed procedure were verified by the physician. Mental Status Examination: normal. Airway Examination: normal oropharyngeal airway and neck mobility. Respiratory Examination: clear to auscultation. Prophylactic Antibiotics: The patient does not require prophylactic antibiotics. Prior Anticoagulants: The patient has taken no previous anticoagulant or antiplatelet agents. ASA Grade Assessment: II - A patient with mild systemic disease. After reviewing the risks and benefits, the patient was deemed in satisfactory condition to undergo the procedure. The anesthesia plan was to use moderate sedation / analgesia (conscious sedation). Immediately prior to administration of medications, the patient was re-assessed for adequacy to receive sedatives. The heart rate, respiratory rate, oxygen saturations, blood pressure, adequacy of pulmonary ventilation, and response to care were monitored throughout the procedure. The physical status of the patient was re-assessed after the procedure. After I obtained informed consent, the scope was passed under direct vision. Throughout the procedure, the patient's blood pressure, pulse, and oxygen saturations were monitored continuously. The Colonoscope was introduced through the anus and advanced to the terminal ileum. The Colonoscope was introduced through the anus and advanced to the terminal ileum. The colonoscopy was performed without difficulty. The patient tolerated the procedure well. The quality of the bowel preparation was good. Scope In: 4:53:33 PM Scope Withdrawal Time 0 hours 17 minutes 16 seconds Scope Out: 5:15:53 PM Total Procedure Duration Time 0 hours 22 minutes 20 seconds Findings: The perianal and digital rectal examinations were normal. A 19 mm polyp was found in the sigmoid colon. The polyp was semi-pedunculated. The polyp was removed with a hot snare. Resection and retrieval were complete. Verification of patient identification for the specimen was done. Estimated blood loss was minimal. A few small and large-mouthed diverticula were found in the recto-sigmoid colon and sigmoid colon. Impression: - One 19 mm polyp in the sigmoid colon, removed with a hot snare. Resected and retrieved. - Diverticulosis in the recto-sigmoid colon and in the sigmoid colon. Recommendation: - Discharge patient to home. - Resume previous diet. - Continue present medications. - Await pathology results. - Repeat colonoscopy in 1 year for surveillance. Procedure Code(s): --- Professional --- 37639, Colonoscopy, flexible; with removal of tumor(s), polyp(s), or other lesion(s) by snare technique CPT copyright 2017 [employer]. All rights reserved. The codes documented in this report are preliminary and upon tanbark peeler review may be revised to meet current compliance requirements. Adiel Naidu DO 09/02/2021 5:29:21 PM This report has been signed electronically. Number of Addenda: 1 Note Initiated On: 09/02/2021 4:49 PM Addendum Number: 1 Addendum Date: 01/13/2022 6:14:12 AM MAC was used as sedation for this procedure. Adiel Naidu DO 01/13/2022 6:14:16 AM This report has been signed electronically.
--- NOTE | 2022-01-13 06:21 | OP.EGD_ITS ---
Patient Name: Jose Virgen Procedure Date: 09/02/2021 4:38 PM Date of : 1950 Age: 71 Procedure: Upper GI endoscopy Indications: Iron deficiency anemia Providers: Adile Naidu DO Medicines: Monitored Anesthesia Care Patient Profile: This is a 71 year old male. Refer to note in patient chart for documentation of history and physical. Patient has symptoms. Complications: No immediate complications. Procedure: Pre-Anesthesia Assessment: - Prior to the procedure, a History and Physical was performed, and patient medications and allergies were reviewed. The patient is competent. The risks and benefits of the procedure and the sedation options and risks were discussed with the patient. All questions were answered and informed consent was obtained. Patient identification and proposed procedure were verified by the physician. Mental Status Examination: normal. Airway Examination: normal oropharyngeal airway and neck mobility. Respiratory Examination: clear to auscultation. Prophylactic Antibiotics: The patient does not require prophylactic antibiotics. Prior Anticoagulants: The patient has taken no previous anticoagulant or antiplatelet agents. ASA Grade Assessment: II - A patient with mild systemic disease. After reviewing the risks and benefits, the patient was deemed in satisfactory condition to undergo the procedure. The anesthesia plan was to use moderate sedation / analgesia (conscious sedation). Immediately prior to administration of medications, the patient was re-assessed for adequacy to receive sedatives. The heart rate, respiratory rate, oxygen saturations, blood pressure, adequacy of pulmonary ventilation, and response to care were monitored throughout the procedure. The physical status of the patient was re-assessed after the procedure. After obtaining informed consent, the endoscope was passed under direct vision. Throughout the procedure, the patient's blood pressure, pulse, and oxygen saturations were monitored continuously. The Colonoscope was introduced through the mouth, and advanced to the proximal jejunum. The gastroscope was introduced through the mouth, and advanced to the fourth part of duodenum. The upper GI endoscopy was accomplished without difficulty. The patient tolerated the procedure well. Scope In: 4:41:27 PM Scope Out: 4:49:36 PM Total Procedure Duration Time 0 hours 8 minutes 9 seconds Findings: The Z-line was variable and was found 39 cm from the incisors. A small hiatal hernia was present. The cardia and gastric fundus were normal on retroflexion. A single 5 mm angiodysplastic lesion with bleeding was found in the fourth portion of the duodenum. Coagulation for hemostasis using monopolar probe was successful. A 5 mm sessile polyp was found in the jejunum. The polyp was removed with a cold snare. Resection and retrieval were complete. Verification of patient identification for the specimen was done. Estimated blood loss was minimal. Impression: - Z-line variable, 39 cm from the incisors. - Small hiatal hernia. - A single bleeding angiodysplastic lesion in the duodenum. Treated with a monopolar probe. - No specimens collected. Recommendation: - Discharge patient to home. - Resume previous diet. - Continue present medications. - Await pathology results. Procedure Code(s): --- Professional --- 13155, 59, Esophagogastroduodenoscopy, flexible, transoral; with control of bleeding, any method 18001, Esophagogastroduodenoscopy, flexible, transoral; with removal of tumor(s), polyp(s), or other lesion(s) by snare technique CPT copyright 2017 [employer]. All rights reserved. The codes documented in this report are preliminary and upon fitness studies teacher review may be revised to meet current compliance requirements. Adiel Naidu DO 09/02/2021 5:26:32 PM Number of Addenda: 1 Note Initiated On: 09/02/2021 4:38 PM Addendum Number: 1 Addendum Date: 01/13/2022 6:14:23 AM MAC was used as sedation for this procedure. Adiel Naidu DO 01/13/2022 6:14:27 AM
== END 2021-09-03 14:43 | disposition home or self-care (01) | DRG 378 ==
LOC: ED 13:32 → PCU 13:46
PROVIDERS: Internal Medicine Gastroenterology; Nurse Practitioner; Admitting Provider Student in an Organized Health Care Education/Training Program; Emergency Provider Student in an Organized Health Care Education/Training Program; PCP Internal Medicine; Visit Provider Student in an Organized Health Care Education/Training Program
PROC: 0DJD8ZZ Inspection of Lower Intestinal Tract, Via Natural or Artificial Opening Endoscopic (ICD-10-PCS; CPT 45378; principal; 2021-09-02 16:25)
DX: K55.21 Angiodysplasia of colon with hemorrhage (principal); C79.51 Secondary malignant neoplasm of bone; D62 Acute posthemorrhagic anemia; C61 Malignant neoplasm of prostate; D63.0 Anemia in neoplastic disease; D12.5 Benign neoplasm of sigmoid colon; K57.30 Diverticulosis of large intestine without perforation or abscess without bleeding; F17.220 Nicotine dependence, chewing tobacco, uncomplicated; I10 Essential (primary) hypertension; M19.90 Unspecified osteoarthritis, unspecified site; K44.9 Diaphragmatic hernia without obstruction or gangrene; D13.39 Benign neoplasm of other parts of small intestine; K92.1 Melena; F32.A Depression, unspecified; R55 Syncope and collapse; Z90.79 Acquired absence of other genital organ(s); Z79.899 Other long term (current) drug therapy
CPT/HCPCS: 36415; 80048; 81001; 82274; 82306; 82728; 82784; 83516; 83540; 83550; 84484; 85025; 85027; 86255; 86850; 86900; 86901; 86920; 87086; 88305; 93005; 99285; 99406; J7030; P9016; A4216; J2405

== ENCOUNTER → 2021-09-13 | Outpatient (CLI) | payer MEDICARE, SELFPAY ==
[2021-09-13 16:36] LABS: Hematocrit 31.7 % (40-54); Hemoglobin 10.2 g/dL (13.0-16.5); Mean Corp Hgb Conc 32.2 g/dL (32-36); Mean Corpuscular Hgb 28.3 pg (27.0-32.0); Mean Corpuscular Volume 87.8 fL (80-94); Mean Platelet Vol. 8.4 fl (6.2-12.0); Platelet Count 343 K/mm3 (150-450); RBC Distribution Width CV 15.2 % (11.6-14.6); RBC Distribution Width SD 48.7 fl (35.1-43.9); Red Blood Count 3.61 M/mm3 (4.6-6.2); White Blood Count 4.4 K/mm3 (4.4-11.0)
[2021-09-13 16:48] LABS: Protein, Urine (Random) 146.2 mg/dL (<11.9); Protein:Creat Ratio 2758 mg/g CRE (0-200)
[2021-09-13 16:49] LABS: Albumin, Serum 3.3 g/dL (3.2-5.0); BUN 32 mg/dL (7-18); BUN/Creat Ratio 16.8 RATIO (10-20); Calcium,Total 8.3 mg/dL (8.5-10.1); Chloride 107 mmol/L (98-107); Creatinine, Serum 1.91 mg/dL (0.70-1.30); EST Glomerular Filtration Rate 37 mL/min (>60); Est Glom Filt Rate - Afr Amer 45 mL/min (>60); Glucose 115 mg/dL (74-106); Phosphorus 4.6 mg/dL (2.5-4.9); Potassium 4.6 mmol/L (3.5-5.1); Sodium Level 137 mmol/L (136-145)
[2021-09-13 16:53] LABS: Vitamin D,25 Hydroxy 53.5 ng/mL
[2021-09-13 17:12] LABS: PTHIN 145.5 pg/mL (18.4-80.1)
== END | disposition home or self-care (01) ==
LOC: BIMLAB 14:26
PROVIDERS: PCP Internal Medicine; Visit Provider Internal Medicine Nephrology
DX: N18.32 Chronic kidney disease, stage 3b (principal)
CPT/HCPCS: 36415; 80069; 82306; 82570; 83970; 84156; 85027

== ENCOUNTER → 2021-10-13 | Outpatient (CLI) | payer MEDICARE, SELFPAY | END | disposition home or self-care (01) | LOC: LAB 13:38 | PROVIDERS: PCP Internal Medicine; Referring Provider Registered Nurse; Visit Provider Registered Nurse | DX: C61 Malignant neoplasm of prostate (principal) | CPT/HCPCS: 36415; 84153; G0103 ==

== ENCOUNTER → 2021-12-05 | Outpatient (CLI) | payer MEDICARE, SELFPAY ==
[2021-12-05 12:30] LABS: Hemoglobin 11.1 g/dL (13.0-16.5); Mean Corp Hgb Conc 33.6 g/dL (32-36); Mean Corpuscular Hgb 29.9 pg (27.0-32.0); Mean Corpuscular Volume 88.9 fL (80-94); Mean Platelet Vol. 9.4 fl (6.2-12.0); Platelet Count 241 K/mm3 (150-450); RBC Distribution Width CV 14.6 % (11.6-14.6); RBC Distribution Width SD 46.6 fl (35.1-43.9); Red Blood Count 3.71 M/mm3 (4.6-6.2); White Blood Count 3.6 K/mm3 (4.4-11.0)
[2021-12-05 12:47] LABS: Anion Gap 8 (5-15); BUN 24 mg/dL (7-18); BUN/Creat Ratio 12.5 RATIO (10-20); Calcium,Total 9.3 mg/dL (8.5-10.1); Chloride 101 mmol/L (98-107); Creatinine, Serum 1.92 mg/dL (0.70-1.30); EST Glomerular Filtration Rate 37 mL/min (>60); Est Glom Filt Rate - Afr Amer 45 mL/min (>60); Glucose 165 mg/dL (74-106); Sodium Level 135 mmol/L (136-145)
[2021-12-05 13:04] LABS: Protein, Urine (Random) 40.6 mg/dL (<11.9); Protein:Creat Ratio 701 mg/g CRE (0-200)
== END | disposition home or self-care (01) ==
LOC: BIMLAB 10:13
PROVIDERS: Nurse Practitioner Family; PCP Internal Medicine; Visit Provider Nurse Practitioner Adult Health
DX: N18.32 Chronic kidney disease, stage 3b (principal); S39.92XA Unspecified injury of lower back, initial encounter; X58.XXXA Exposure to other specified factors, initial encounter
CPT/HCPCS: 36415; 80048; 82570; 84156; 85027

== ENCOUNTER → 2022-03-30 | Outpatient (CLI) | payer MEDICARE, SELFPAY ==
--- NOTE | 2022-03-30 12:45 | US_ITS ---
STUDY: RENAL ULTRASOUND - COMPLETE REASON FOR EXAM: Male, 71 years old. PROSTATE CA TECHNIQUE: Ultrasound evaluation of the kidneys was performed with real-time and static hubbard-scale imaging. COMPARISON: July 25, 2021 FINDINGS: RIGHT KIDNEY: Normal location of the right kidney, which is normal in size. The right kidney measures 10.0 cm. There is increased echogenicity cortex of the right kidney. The renal cortex measures 1.4 cm. There is a 1.3 cm cyst. There are no right renal calculi. There is no right hydronephrosis. DISTAL RIGHT URETER: There is non-visualization of the distal right ureter. There is no demonstrated right ureterovesical junction calculus. There is no demonstrated right ureteral jet. LEFT KIDNEY: Normal location of the left kidney, which is decreased in size. The left kidney measures 8.8 cm. There is increased echogenicity cortex of the left kidney. The renal cortex measures 1.3 cm. There is 2.8 cm cyst. There are no left renal calculi. There is no left hydronephrosis. DISTAL LEFT URETER: There is non-visualization of the distal left ureter. There is no demonstrated left ureterovesical junction calculus. There is no demonstrated left ureteral jet. BLADDER: The distended urinary bladder has a volume of 124 ml. Heterogeneous enlarged prostate gland impresses upon the bladder. There is trabeculation with thickening of the wall of the urinary bladder. There is no demonstrated mass within the urinary bladder. There are no demonstrated bladder calculi. US/Kidney and Bladder IMPRESSION: Increased echogenicity of the kidneys consistent with medical renal disease. Bilateral renal cysts. No hydronephrosis. Wall thickening of the urinary bladder. Electronically Signed: Navdeep Hernandez MD at 8:52 EST ,
== END | disposition home or self-care (01) ==
LOC: US 12:44
PROVIDERS: PCP Internal Medicine; Referring Provider Internal Medicine Hematology & Oncology; Visit Provider Internal Medicine Hematology & Oncology
DX: C61 Malignant neoplasm of prostate (principal); N18.32 Chronic kidney disease, stage 3b; N13.30 Unspecified hydronephrosis
CPT/HCPCS: 76770

== ENCOUNTER → 2022-05-16 | Outpatient (CLI) | payer MEDICARE, SELFPAY ==
[2022-05-16 15:55] LABS: Anion Gap 10 (5-15); BUN 20 mg/dL (7-18); BUN/Creat Ratio 12.1 RATIO (10-20); Calcium,Total 6.6 mg/dL (8.5-10.1); Chloride 105 mmol/L (98-107); Creatinine, Serum 1.65 mg/dL (0.70-1.30); EST Glomerular Filtration Rate 44 mL/min (>60); Est Glom Filt Rate - Afr Amer 53 mL/min (>60); Glucose 104 mg/dL (74-106); Potassium 4.6 mmol/L (3.5-5.1); Sodium Level 138 mmol/L (136-145)
[2022-05-16 16:14] LABS: Protein, Urine (Random) 64.7 mg/dL (<11.9); Protein:Creat Ratio 957 mg/g CRE (0-200)
== END | disposition home or self-care (01) ==
PROVIDERS: PCP Internal Medicine; Referring Provider Internal Medicine Nephrology; Visit Provider Internal Medicine Nephrology
DX: N18.32 Chronic kidney disease, stage 3b (principal)
CPT/HCPCS: 36415; 80048; 82570; 84156

== ENCOUNTER → 2022-07-05 | Outpatient (CLI) | payer MEDICARE, SELFPAY ==
[2022-07-05 12:40] LABS: Anion Gap 7 (5-15); BUN 27 mg/dL (7-18); BUN/Creat Ratio 14.9 RATIO (10-20); Calcium,Total 8.3 mg/dL (8.5-10.1); Chloride 104 mmol/L (98-107); Creatinine, Serum 1.81 mg/dL (0.70-1.30); EST Glomerular Filtration Rate 40 mL/min (>60); Est Glom Filt Rate - Afr Amer 48 mL/min (>60); Glucose 104 mg/dL (74-106); Potassium 4.9 mmol/L (3.5-5.1); Sodium Level 137 mmol/L (136-145)
== END | disposition home or self-care (01) ==
LOC: BIMLAB 11:19
PROVIDERS: PCP Internal Medicine; Referring Provider Internal Medicine; Visit Provider Internal Medicine
DX: I10 Essential (primary) hypertension (principal)
CPT/HCPCS: 36415; 80048

== ENCOUNTER → 2022-10-11 | Outpatient (CLI) | payer MEDICARE, SELFPAY ==
[2022-10-11 12:40] LABS: Protein, Urine (Random) 21.9 mg/dL (<11.9); Protein:Creat Ratio 514 mg/g CRE (0-200)
[2022-10-11 12:59] LABS: Anion Gap 6 (5-15); BUN 23 mg/dL (7-18); BUN/Creat Ratio 12.6 RATIO (10-20); Calcium,Total 9.3 mg/dL (8.5-10.1); Chloride 105 mmol/L (98-107); Creatinine, Serum 1.82 mg/dL (0.70-1.30); EST Glomerular Filtration Rate 39 mL/min (>60); Est Glom Filt Rate - Afr Amer 48 mL/min (>60); Glucose 118 mg/dL (74-106); Sodium Level 136 mmol/L (136-145)
== END | disposition home or self-care (01) ==
LOC: BIMLAB 11:04
PROVIDERS: PCP Internal Medicine; Referring Provider Internal Medicine Nephrology; Visit Provider Internal Medicine Nephrology
DX: N18.32 Chronic kidney disease, stage 3b (principal)
CPT/HCPCS: 36415; 80048; 82570; 84156

== ENCOUNTER → 2022-10-26 | Outpatient (CLI) | payer MEDICARE, SELFPAY ==
[2022-10-27 11:47] LABS: PSA,Total- Diagnostic 1.61 ng/mL (0.0-4.0)
== END | disposition home or self-care (01) ==
PROVIDERS: PCP Internal Medicine; Referring Provider Urology; Visit Provider Urology
DX: C61 Malignant neoplasm of prostate (principal)
CPT/HCPCS: 36415; 84153; G0103

== ENCOUNTER 2022-12-23 13:33 | Emergency (ER) | payer MEDICARE, SELFPAY ==
[2022-12-23 13:34] VITALS: PULSE 57; RESP 13; TEMP 35.6; TEMP 36.4; O2SAT 98; BMI 24.3
[2022-12-23 13:40] VITALS: BP 156/86; PULSE 55; RESP 14; TEMP 37.2; O2SAT 98
--- NOTE | 2022-12-23 14:01 | RAD_ITS ---
INDICATION: chest pain EXAMINATION/TECHNIQUE: X-RAY - XR Chest 1 View COMPARISON: Prior study dated: CT of the abdomen and pelvis dated June 21, 2021 FINDINGS: LINES/DEVICES: None. LUNGS: There are few streaky opacities within the mid and lower lungs. There are stable right sided calcified pleural plaques. No pneumothorax. MEDIASTINUM AND CARDIOVASCULAR STRUCTURES: Cardiac silhouette not enlarged. Central airways and mediastinal contour are unremarkable. BONES AND SOFT TISSUES: There are ill-defined sclerotic foci throughout the bony thorax and right scapula. RAD/Chest 1 View (Portable) IMPRESSION: Minimal bilateral atelectasis and/or scarring within the mid and lower lungs. Ill-defined sclerotic bony lesions concerning for metastases. Electronically Signed: Justine Cazares MD at 15:13 EDT ,
--- NOTE | 2022-12-23 14:05 | EDS_ITS ---
<Statement entered by Hank Ch MD - 12/23/22 21:31> I have personally performed a face to face assessment of the patient and have reviewed the BISI Note. HPI History of Present Illness Chief Complaint: Weakness Narrative Narrative: Patient is a 72-year-old male with history of hypertension, hyperlipidemia, anemia who is currently being treated for prostate cancer presents to the emergency department for a near syncopal episode. Patient states that he was at the [place], he exert himself by walking to and from the car. He did not eat any lunch today. He states that while he was on the bench, he felt like a hot flash, told his that he might pass out, per the , the patient was staring at her and not responding for 10 to 15 seconds. Patient states that he feels much better at this time. He denies any chest pain or shortness of breath. [facility] Medical History Alcohol abuse Alcohol use Anemia Anxiety Arthritis Back injury Back pain BPH (benign prostatic hyperplasia) Colon cancer screening Constipation Depression Elevated PSA Fecal occult blood test positive Flu vaccine need Former smoker History of steroid therapy History of transfusion Hypertension Hypocalcemia Kidney injury Left hand pain Lightheaded Loose, teeth Marijuana use Nocturia Prostate cancer Prostate disease Prostatic enlargement Psoriasis Smokeless tobacco use Vitamin B12 deficiency Wears glasses Home Medications cholecalciferol (vitamin D3) 50 mcg (2,000 unit) capsule (Vitamin D3) 50 mcg PO DAILY supplement 07/25/21 [History Last Taken 08/31/21] leuprolide (3 month) 22.5 mg (3 month) subcutaneous syringe (Eligard) 22.5 mg subcut .Q3MO BPH 07/25/21 [History Last Taken 08/16/21] enzalutamide 80 mg tablet (Xtandi) 160 mg PO QHS BPH 08/12/21 [History Last Taken 08/31/21] tramadol 50 mg tablet 50 mg PO Q6H PRN 11/29/21 [History Last Taken Unknown] lorazepam 0.5 mg tablet 0.5 mg PO Q6H PRN 04/03/22 [History Last Taken Unknown] blood pressure monitor (Blood Pressure Kit) #1 ea 06/15/22 [Rx Last Taken Unknown] denosumab 120 mg/1.7 mL (70 mg/mL) subcutaneous solution (Xgeva) 120 mg subcut Q4W 07/05/22 [History Last Taken Unknown] amlodipine 10 mg tablet See Rx Instructions .Route .COMPLEX #90 tabs 08/22/22 [Rx Last Taken Unknown] losartan 50 mg tablet See Rx Instructions .Route .COMPLEX #180 tabs 08/25/22 [Rx Last Taken Unknown] mirtazapine 30 mg tablet 30 mg PO QHS mood #90 tabs 10/25/22 [Rx Last Taken Unknown] metoprolol succinate 50 mg tablet,extended release 24 hr See Rx Instructions .Route .COMPLEX #90 tabs 11/08/22 [Rx Last Taken Unknown] ferrous sulfate 325 mg (65 mg iron) tablet 325 mg PO BID #180 tabs 11/14/22 [Rx Last Taken Unknown] Allergy/AdvReac Type Severity Reaction Status Date / Time No Known Allergies Allergy Verified 12/23/22 13:34 Family History Father Anxiety Arthritis Diabetes CVA (cerebral vascular accident) Parkinsons Mother Arthritis Hypertension Surgical History H/O transurethral resection of prostate History of colonoscopy History of hernia repair History of tooth extraction Social History household members: spouse number of children: 2 current occupational status: retired current occupation: maintenance at [employer] pets and animals: No Smoking Status: Current every day smoker tobacco type: smokeless tobacco Smokeless tobacco user: chewing tobacco alcohol intake: current alcohol intake frequency: 3 or more drinks per day Alcohol type: beer details: drinks about 4 beers a day substance use type: does not use ROS ROS ED ROS Narrative Constitutional: Negative for fever, chills, weight loss. Positive for weakness Eyes: Negative for vision loss, vision change, double vision ENT: Negative for any sore throat, ear pain, congestion Cardiovascular: Negative for any chest pain, tightness, palpitations Respiratory: Negative for any cough, sputum production, hemoptysis, dyspnea, dyspnea on exertion, orthopnea Gastrointestinal: Negative for any abdominal pain, nausea, vomiting, diarrhea, constipation, blood in stool, blood in vomit : Negative for any urinary frequency, dysuria, retention, blood in urine Muscle skeletal: Negative for any muscle joint pain, stiffness, myalgias, arthralgias, neck pain, back pain Neurological: Negative for any headache, numbness or tingling, dizziness. Positive for near syncopal episode Skin: Negative for any rashes, lumps, itching, abrasions, lacerations Psychiatric: Negative for any depression, anxiety, stress, suicidal ideation, homicidal ideation Hematologic: Negative for any easy bruising, excessive bruising, easy bleeding Allergies: Negative for any eczema, hives, rash EXAM Physical Exam Narrative Exam Narrative: Vital signs reviewed. Patient feels much better at this time. Patient states he feels asymptomatic. He has had history of this in the past HEET: Head normocephalic atraumatic, TMs clear bilaterally. Posterior pharynx is clear, moist mucous membranes. Nares clear bilaterally. Neck: Supple with no lymphadenopathy or tenderness. No signs of meningismus, negative jolt sign. Cardiac: Regular rate and rhythm no murmurs gallops or rubs, equal peripheral pulses bilaterally. Respiratory: Lungs clear to auscultation bilaterally. No chest tenderness. Abdomen: Soft, nontender, nondistended. No abdominal bruit or pulsatile masses. No hepatosplenomegaly Extremities: No peripheral edema, no signs of gross trauma or deformity. Active full range of motion of all extremities. Neuro: Cranial nerves II through XII intact, no focal neurological deficits. Skin: Clean dry and intact with no rash, purpura, petechiae, vesicles or pustules. Backs/flank: No CVA tenderness, no midline spinal tenderness, no deformity. Psych: Normal mood and affect. No SI, HI or acute psychosis. Const Vital Signs: 12/23/22 13:34 12/23/22 13:34 12/23/22 13:40 Temperature 96.1 F L 97.6 F L 98.9 F Temperature Source Temporal Oral Oral Pulse Rate 57 L 55 L Respiratory Rate 13 14 Blood Pressure 156/86 H Blood Pressure Mean 109 Pulse Ox 98 98 Oxygen Delivery Method Room Air 12/23/22 14:01 12/23/22 16:16 Temperature Temperature Source Pulse Rate 61 Respiratory Rate 16 Blood Pressure 126/74 H Blood Pressure Mean 91 Pulse Ox 97 Oxygen Delivery Method Room Air MDM MDM Lab Data Labs: Laboratory Results - last 24 hr 12/23/22 14:10 WBC 5.2 RBC 4.31 L Hgb 13.3 Hct 40.5 MCV 94.0 MCH 30.9 MCHC 32.8 RDW Std Deviation 46.1 H RDW Coeff of Jesus 13.6 Plt Count 224 MPV 9.2 Immature Gran % (Auto) 0.400 Neut % (Auto) 74.3 H Lymph % (Auto) 16.8 L [place] % (Auto) 5.2 Eos % (Auto) 2.5 Baso % (Auto) 0.8 Absolute Neuts (auto) 3.8 Absolute Lymphs (auto) 0.87 Nucleated RBC % 0 Sodium 137 Potassium 4.3 Chloride 108 H Carbon Dioxide 24.0 Anion Gap 5 BUN 20 H Creatinine 1.86 H Estim Creat Clear Calc 40.56 Est GFR (MDRD) Af Amer 46 L Est GFR (MDRD) Non-Af 38 L BUN/Creatinine Ratio 10.8 Glucose 94 Calcium 8.6 Troponin I High Sens 8 B-Natriuretic Peptide 41.0 Radiography Diagnostic Testing: Clinical Impression(s) from Imaging Studies Chest X-Ray 12/23/22 14:01 IMPRESSION: Minimal bilateral atelectasis and/or scarring within the mid and lower lungs. Ill-defined sclerotic bony lesions concerning for metastases. Electronically Signed: Justine Cazares MD at 15:13 EDT , EKG EKG shows sinus bradycardia: Attestation: I personally reviewed and interpreted this EKG as follows: Comments: Sinus bradycardia, rate of 51 bpm, HI 164 ms, QRS duration 98 ms, no acute ST elevation, no acute infarct noted. Treatment and Re-Evaluation :: Patient appears generally well, patient appears nontoxic, vital signs are stable. Patient presents to the emergency department for a near syncopal episode [place] the [place]. Patient states that now he feels much better is almost asymptomatic. Patient states he did eat breakfast this morning however he did not eat lunch. He states he was drinking water. Denies any chest pain or shortness of breath. At this time, patient received a full cardiac work-up secondary to the age. Patient will receive basic laboratory values, as well as 2 troponins. EKG will be completed concerning for any ST elevation or myocardial infarction, electrolyte imbalance. Patient continues to feel well. Patient's laboratory values show a normal CBC, negative for any anemia. Patient's chemistries do show some renal sufficiency and a creatinine of 1.86 however the patient has improved since last year when he was 2.25 in August. BNP was negative, initial troponin was 8, troponin was negative as well. Patient's chest x-ray two-view interpreted the ER physician shows minimal bilateral lower atelectasis and scarring within the mid and lower lungs. Ill-defined sclerotic bony lesions concerning for metastasis, patient is aware that he has these bone mets. At this time, patient likely had a near syncopal episode. Patient denies any shortness of breath chest pain, patient not tachycardic, there is minimal suspicion for any pulmonary embolus. Patient is ambulatory here and feels much better. Patient was given 1 L normal saline. He was instructed to return for any worsening symptoms, patient stable for discharge. Discharge Plan Triage Chief Complaint: Weakness ED Midlevel Provider: Hank Cortes ED Provider: Hank Ch Dx/Rx/DC Orders Clinical Impression: Chronic kidney disease, Near syncope, Cancer, metastatic to bone Instructions: Causes of Syncope, Dizziness Fainting Causes Prescriptions: No Action tramadol 50 mg tablet 50 mg PO Q6H PRN lorazepam 0.5 mg tablet 0.5 mg PO Q6H PRN Patient Comments: TAKE ONE (1) TABLET BY MOUTH EVERY 6 HOURS, NEEDED FOR ANXIETY PALLIATIVE PATIENT Xgeva 120 mg/1.7 mL (70 mg/mL) solution 120 mg subcut Q4W (DME) blood pressure monitor [Blood Pressure Kit] Kit See Rx Instructions .ROUTE .MEDSUPPLY Qty: 1 0RF Rx Instructions: Check blood pressure daily for hypertension I10 cholecalciferol (vitamin D3) [Vitamin D3] 50 mcg (2,000 unit) Capsule 50 mcg PO DAILY Eligard (3 month) 22.5 mg Syringe 22.5 mg SUBCUT .Q3MO Xtandi 80 mg Tablet 160 mg PO QHS amlodipine 10 mg tablet See Rx Instructions .ROUTE .COMPLEX Qty: 90 3RF Dose Instruction: TAKE 1 TAB BY MOUTH DAILY AT BEDTIME Rx Instructions: TAKE 1 TAB BY MOUTH DAILY AT BEDTIME losartan 50 mg tablet See Rx Instructions .ROUTE .COMPLEX Qty: 180 1RF Dose Instruction: TAKE 1 TABLET BY MOUTH TWICE A DAY Rx Instructions: TAKE 1 TABLET BY MOUTH TWICE A DAY mirtazapine 30 mg tablet 30 mg PO QHS Qty: 90 2RF metoprolol succinate 50 mg tablet extended release 24 hr See Rx Instructions .ROUTE .COMPLEX Qty: 90 2RF Dose Instruction: TAKE 1 TABLET BY MOUTH EVERY DAY Rx Instructions: TAKE 1 TABLET BY MOUTH EVERY DAY ferrous sulfate 325 mg (65 mg iron) tablet 325 mg PO BID Qty: 180 3RF Primary Care Provider: Estefany De Guzman Referrals: Estefany De Guzman MD [Primary Care Provider] - Activity Restrictions/Additional Instructions: Please ensure that you maintain hydration today. Please take it easy, return for any worsening symptoms. Disposition Disposition: Home, Self Care Discharge Date/Time: 12/23/22 16:17
--- NOTE | 2022-12-23 14:15 | EKG12_ITS ---
Test Reason : Blood Pressure : / mmHG Vent. Rate : 051 BPM Atrial Rate : 051 BPM P-R Int : 164 ms QRS Dur : 098 ms QT Int : 498 ms P-R-T Axes : 043 -14 032 degrees QTc Int : 458 ms Sinus bradycardia Minimal voltage criteria for LVH, may be normal variant ( R in aVL ) Borderline ECG Confirmed by EDSON AGEE, VADIM ([id number]), sound editor EDMOND DAVIDSON ([id number]) on 01/01/2023 7:17:29 AM Referred By: LAINEY Confirmed By:VADIM SANDHU MD
[2022-12-23 14:25] LABS: Absolute Lymphocyte Count 0.87 X10^3/uL (0.83-4.51); Absolute Neutrophil Count 3.8 X10^3/uL (2.0-7.7); Basophil# 0.04 X10^3/uL; Basophil% 0.8 % (0-1); Eosinophil# 0.13 X10^3/uL; Eosinophils% 2.5 % (0-5); Hematocrit 40.5 % (40-54); Hemoglobin 13.3 g/dL (13.0-16.5); Lymphocyte # 0.87 X10^3/ul (0.83-4.51); Lymphocyte % 16.8 % (19-41); Mean Corp Hgb Conc 32.8 g/dL (32-36); Mean Corpuscular Hgb 30.9 pg (27.0-32.0); Mean Platelet Vol. 9.2 fl (6.2-12.0); Monocyte# 0.27 X10^3/uL; Monocyte% 5.2 % (0-10); NRBC Flagged by Analyzer 0 % (0-5); Neutrophil # 3.84 X10^3/uL (2.7-7.7); Neutrophil % 74.3 % (47-70); Platelet Count 224 K/mm3 (150-450); RBC Distribution Width CV 13.6 % (11.6-14.6); RBC Distribution Width SD 46.1 fl (35.1-43.9); Red Blood Count 4.31 M/mm3 (4.6-6.2); White Blood Count 5.2 K/mm3 (4.4-11.0)
[2022-12-23] MEDS: 0.9% Normal Saline (1000mL) 1,000 ML 1000 ML IV (14:26)
[2022-12-23 14:42] LABS: Anion Gap 5 (5-15); BUN 20 mg/dL (7-18); BUN/Creat Ratio 10.8 RATIO (10-20); Calcium,Total 8.6 mg/dL (8.5-10.1); Chloride 108 mmol/L (98-107); Creatinine, Serum 1.86 mg/dL (0.70-1.30); EST Glomerular Filtration Rate 38 mL/min (>60); Est Glom Filt Rate - Afr Amer 46 mL/min (>60); Estimated Creatinine Clearance 40.56 ml/min; Glucose 94 mg/dL (74-106); Potassium 4.3 mmol/L (3.5-5.1); Sodium Level 137 mmol/L (136-145); Troponin-I HS (w/2H Reflex) 8 pg/mL (3.0-78.0)
[2022-12-23 16:16] VITALS: BP 126/74; PULSE 61; RESP 16; O2SAT 97
[2022-12-23 16:21] LABS: Reflex Troponin-HS? (from REC) Y
== END 2022-12-23 16:17 | disposition home or self-care (01) ==
PROVIDERS: Nurse Practitioner; Emergency Provider Emergency Medicine; PCP Internal Medicine; Visit Provider Emergency Medicine
DX: N18.9 Chronic kidney disease, unspecified (principal); C79.51 Secondary malignant neoplasm of bone; C61 Malignant neoplasm of prostate; R55 Syncope and collapse; F17.220 Nicotine dependence, chewing tobacco, uncomplicated
CPT/HCPCS: 71045; 80048; 83880; 84484; 85025; 93005; 96360; 96361; 99285; J7030

== ENCOUNTER → 2023-03-19 | Outpatient (CLI) | payer MEDICARE, SELFPAY ==
[2023-03-19 16:12] LABS: Protein, Urine (Random) 37.2 mg/dL (<11.9); Protein:Creat Ratio 396 mg/g CRE (0-200)
[2023-03-19 16:36] LABS: Anion Gap 10 (5-15); BUN 22 mg/dL (7-18); BUN/Creat Ratio 12.5 RATIO (10-20); Calcium,Total 9.1 mg/dL (8.5-10.1); Chloride 109 mmol/L (98-107); Creatinine, Serum 1.76 mg/dL (0.70-1.30); EST Glomerular Filtration Rate 41 mL/min (>60); Est Glom Filt Rate - Afr Amer 49 mL/min (>60); Glucose 97 mg/dL (74-106); Potassium 4.2 mmol/L (3.5-5.1); Sodium Level 139 mmol/L (136-145)
== END | disposition home or self-care (01) ==
LOC: BIMLAB 14:07
PROVIDERS: PCP Internal Medicine; Referring Provider Internal Medicine Nephrology; Visit Provider Internal Medicine Nephrology
DX: N18.32 Chronic kidney disease, stage 3b (principal)
CPT/HCPCS: 36415; 80048; 82570; 84156

== ENCOUNTER → 2023-08-07 | Outpatient (CLI) | payer MEDICARE, SELFPAY ==
[2023-08-07 12:21] LABS: Hematocrit 43.8 % (40-54); Hemoglobin 14.5 g/dL (13.0-16.5); Mean Corp Hgb Conc 33.1 g/dL (32-36); Mean Corpuscular Hgb 31.4 pg (27.0-32.0); Mean Corpuscular Volume 94.8 fL (80-94); Mean Platelet Vol. 9.6 fl (6.2-12.0); Platelet Count 267 K/mm3 (150-450); RBC Distribution Width SD 48.1 fl (35.1-43.9); Red Blood Count 4.62 M/mm3 (4.6-6.2); White Blood Count 6.4 K/mm3 (4.4-11.0)
[2023-08-07 12:29] LABS: Albumin, Serum 3.8 g/dL (3.2-5.0); BUN 22 mg/dL (7-18); BUN/Creat Ratio 12.2 RATIO (10-20); Calcium,Total 8.9 mg/dL (8.5-10.1); Chloride 105 mmol/L (98-107); Creatinine, Serum 1.81 mg/dL (0.70-1.30); EST Glomerular Filtration Rate 39 mL/min (>60); Est Glom Filt Rate - Afr Amer 48 mL/min (>60); Glucose 174 mg/dL (74-106); Phosphorus 2.8 mg/dL (2.5-4.9); Potassium 4.1 mmol/L (3.5-5.1); Sodium Level 136 mmol/L (136-145)
[2023-08-07 12:40] LABS: Vitamin D,25 Hydroxy 69.4 ng/mL
[2023-08-07 12:42] LABS: PTHIN 58.3 pg/mL (18.4-80.1)
[2023-08-07 13:07] LABS: Protein, Urine (Random) 39.3 mg/dL (<11.9); Protein:Creat Ratio 657 mg/g CRE (0-200)
== END | disposition home or self-care (01) ==
LOC: BIMLAB 10:15
PROVIDERS: PCP Internal Medicine; Visit Provider Nurse Practitioner Adult Health
DX: N18.32 Chronic kidney disease, stage 3b (principal)
CPT/HCPCS: 36415; 80069; 82306; 82570; 83970; 84156; 85027

== ENCOUNTER → 2023-11-08 | Outpatient (CLI) | payer MEDICARE, SELFPAY ==
[2023-11-08 15:30] LABS: Hematocrit 44.5 % (40-54); Hemoglobin 14.6 g/dL (13.0-16.5); Mean Corp Hgb Conc 32.8 g/dL (32-36); Mean Corpuscular Volume 94.5 fL (80-94); Mean Platelet Vol. 9.8 fl (6.2-12.0); Platelet Count 261 K/mm3 (150-450); RBC Distribution Width CV 13.7 % (11.6-14.6); RBC Distribution Width SD 47.7 fl (35.1-43.9); Red Blood Count 4.71 M/mm3 (4.6-6.2); White Blood Count 5.3 K/mm3 (4.4-11.0)
[2023-11-08 15:56] LABS: PTHIN 23.5 pg/mL (18.4-80.1)
[2023-11-08 16:00] LABS: Vitamin D,25 Hydroxy 57.2 ng/mL
[2023-11-08 16:01] LABS: Protein:Creat Ratio 444 mg/g CRE (0-200)
[2023-11-08 16:02] LABS: Albumin, Serum 3.8 g/dL (3.2-5.0); BUN 27 mg/dL (7-18); BUN/Creat Ratio 15.7 RATIO (10-20); Calcium,Total 9.2 mg/dL (8.5-10.1); Chloride 107 mmol/L (98-107); Creatinine, Serum 1.72 mg/dL (0.70-1.30); EST Glomerular Filtration Rate 42 mL/min (>60); Est Glom Filt Rate - Afr Amer 51 mL/min (>60); Glucose 148 mg/dL (74-106); Phosphorus 3.3 mg/dL (2.5-4.9); Sodium Level 138 mmol/L (136-145)
== END | disposition home or self-care (01) ==
LOC: BIMLAB 12:17
PROVIDERS: PCP Internal Medicine; Referring Provider Nurse Practitioner Adult Health; Visit Provider Nurse Practitioner Adult Health
DX: N18.32 Chronic kidney disease, stage 3b (principal)
CPT/HCPCS: 36415; 80069; 82306; 82570; 83970; 84156; 85027

== ENCOUNTER → 2024-05-20 | Outpatient (CLI) | payer MEDICARE, SELFPAY ==
[2024-05-20 12:22] LABS: Hematocrit 44.7 % (40-54); Hemoglobin 15.2 g/dL (13.0-16.5); Mean Corpuscular Hgb 30.4 pg (27.0-32.0); Mean Corpuscular Volume 89.4 fL (80-94); Mean Platelet Vol. 9.9 fl (6.2-12.0); Platelet Count 249 K/mm3 (150-450); RBC Distribution Width CV 14.1 % (11.6-14.6); RBC Distribution Width SD 45.6 fl (35.1-43.9); White Blood Count 5.2 K/mm3 (4.4-11.0)
[2024-05-20 12:36] LABS: Albumin, Serum 3.7 g/dL (3.2-5.0); BUN 19 mg/dL (7-18); BUN/Creat Ratio 11.7 RATIO (10-20); Chloride 105 mmol/L (98-107); Creatinine, Serum 1.63 mg/dL (0.70-1.30); EST Glomerular Filtration Rate 44 mL/min (>60); Est Glom Filt Rate - Afr Amer 54 mL/min (>60); Glucose 105 mg/dL (74-106); Phosphorus 2.9 mg/dL (2.5-4.9); Potassium 4.4 mmol/L (3.5-5.1); Sodium Level 134 mmol/L (136-145)
[2024-05-20 12:48] LABS: Protein, Urine (Random) 62.4 mg/dL (<11.9); Protein:Creat Ratio 543 mg/g CRE (0-200)
[2024-05-20 12:54] LABS: PTHIN 64.8 pg/mL (18.4-80.1)
[2024-05-20 12:57] LABS: Vitamin D,25 Hydroxy 61.1 ng/mL
== END | disposition home or self-care (01) ==
LOC: BIMLAB 10:14
PROVIDERS: PCP Internal Medicine; Visit Provider Internal Medicine Nephrology
DX: N18.32 Chronic kidney disease, stage 3b (principal)
CPT/HCPCS: 36415; 80069; 82306; 82570; 83970; 84156; 85027

== ENCOUNTER → 2024-10-22 | Outpatient (CLI) | payer MEDICARE, SELFPAY ==
[2024-10-22 15:25] LABS: Hematocrit 44.8 % (40-54); Hemoglobin 15.0 g/dL (13.0-16.5); Immature Granulocytes Count 0.020 X10^3/uL (0.0-0.0); Mean Corp Hgb Conc 33.5 g/dL (32-36); Mean Corpuscular Volume 92.6 fL (80-94); Mean Platelet Vol. 9.8 fl (6.2-12.0); NRBC Flagged by Analyzer 0 % (0-5); Platelet Count 237 K/mm3 (150-450); RBC Distribution Width CV 14.2 % (11.6-14.6); RBC Distribution Width SD 48.3 fl (35.1-43.9); Red Blood Count 4.84 M/mm3 (4.6-6.2); White Blood Count 5.5 K/mm3 (4.4-11.0)
[2024-10-22 15:53] LABS: Cholesterol 184 mg/dL (<=200); Low Density Lipoprotein Calc. 105 mg/dL; Triglycerides 151 mg/dL; Very Low Density Lipoprotein 30 mg/dL (5-40); cholesterol:hdl ratio screen 3.74
[2024-10-22 15:54] LABS: AST(SGOT) 12 U/L (<=37); Alanine Aminotransfer ALT/SGPT < 5 U/L (<=46); Albumin, Serum 4.3 g/dL (3.4-4.8); Alkaline Phosphatase 83 U/L (40-129); Anion Gap 15 (5-15); BUN 24 mg/dL (4-19); BUN/Creat Ratio 15.2 RATIO (10-20); Calcium,Total 9.2 mg/dL (7.6-11.0); Carbon Dioxide 19.0 mmol/L (21.0-32.0); Chloride 104 mmol/L (98-108); Globulin 3.0 g/dL (2.2-4.2); Glucose 129 mg/dL (70-99); Potassium 4.8 mmol/L (3.3-5.1)
== END | disposition home or self-care (01) ==
LOC: BIMLAB 11:31
PROVIDERS: PCP Internal Medicine; Referring Provider Internal Medicine; Visit Provider Internal Medicine
DX: I10 Essential (primary) hypertension (principal); R73.9 Hyperglycemia, unspecified
CPT/HCPCS: 36415; 80053; 80061; 83036; 85025

== ENCOUNTER → 2024-11-06 | Outpatient (CLI) | payer MEDICARE, SELFPAY ==
[2024-11-06 12:56] LABS: Anion Gap 14 (5-15); BUN 18 mg/dL (4-19); BUN/Creat Ratio 12.1 RATIO (10-20); Calcium,Total 8.8 mg/dL (7.6-11.0); Carbon Dioxide 20.3 mmol/L (21.0-32.0); Chloride 101 mmol/L (98-108); Glucose 135 mg/dL (70-99); Potassium 4.1 mmol/L (3.3-5.1)
== END | disposition home or self-care (01) ==
LOC: BIMLAB 11:11
PROVIDERS: PCP Internal Medicine; Referring Provider Internal Medicine; Visit Provider Internal Medicine
DX: I10 Essential (primary) hypertension (principal)
CPT/HCPCS: 36415; 80048

== ENCOUNTER → 2024-11-20 | Outpatient (CLI) | payer MEDICARE, SELFPAY ==
[2024-11-20 16:05] LABS: PSA,Total- Diagnostic 0.42 ng/mL (0.00-4.00)
== END | disposition home or self-care (01) ==
PROVIDERS: PCP Internal Medicine; Referring Provider Urology; Visit Provider Urology
DX: C61 Malignant neoplasm of prostate (principal)
CPT/HCPCS: 36415; 84153

== ENCOUNTER → 2024-12-09 | Outpatient (CLI) | payer MEDICARE, SELFPAY ==
[2024-12-09 12:57] LABS: Anion Gap 15 (5-15); BUN 24 mg/dL (4-19); BUN/Creat Ratio 14.5 RATIO (10-20); Calcium,Total 9.3 mg/dL (7.6-11.0); Carbon Dioxide 19.1 mmol/L (21.0-32.0); Chloride 101 mmol/L (98-108); Glucose 117 mg/dL (70-99); Potassium 4.1 mmol/L (3.3-5.1)
== END | disposition home or self-care (01) ==
LOC: MTLAB 09:57
PROVIDERS: PCP Internal Medicine; Referring Provider Internal Medicine; Visit Provider Internal Medicine
DX: I10 Essential (primary) hypertension (principal)
CPT/HCPCS: 36415; 80048

== ENCOUNTER 2025-02-05 09:44 | Observation (INO) | payer MEDICARE, SELFPAY ==
[2025-02-05] VITALS (8 sets, daily range): BP systolic 107–132; BP diastolic 72–103; PULSE 86–101; RESP 14–30; TEMP 35.8–36.9; O2SAT 93–99; BMI 23.8
--- NOTE | 2025-02-05 11:17 | CT_ITS ---
PROCEDURE: CT/CTA Chest W/WO Contrast
--- NOTE | 2025-02-05 11:18 | CT_ITS ---
PROCEDURE: CT/Abdomen/Pelvis W IV Cont ONLY
--- NOTE | 2025-02-05 11:18 | EKG12_ITS ---
Test Reason : WEAKNESS
[2025-02-05] MEDS: 0.9% Normal Saline (500mL Bag) 500 ML 1000 ML IV (11:29)
[2025-02-05 11:36] LABS: Hematocrit 41.4 % (40-54); Hemoglobin 14.3 g/dL (13.0-16.5); Immature Granulocytes Count 0.070 X10^3/uL (0.0-0.0); Mean Corp Hgb Conc 34.5 g/dL (32-36); Mean Corpuscular Volume 88.7 fL (80-94); Mean Platelet Vol. 9.7 fl (6.2-12.0); NRBC Flagged by Analyzer 0 % (0-5); POSITIVE DIFFERENTIAL YES; Platelet Count 180 K/mm3 (150-450); RBC Distribution Width CV 14.2 % (11.6-14.6); RBC Distribution Width SD 45.8 fl (35.1-43.9); Red Blood Count 4.67 M/mm3 (4.6-6.2); White Blood Count 13.6 K/mm3 (4.4-11.0)
[2025-02-05 11:59] LABS: Troponin T High Sensitivity 31 ng/L (<=22)
[2025-02-05 12:00] LABS: Lipase 11 U/L (13-75)
[2025-02-05 12:02] LABS: AST(SGOT) 11 U/L (<=37); Alanine Aminotransfer ALT/SGPT < 5 U/L (<=46); Albumin, Serum 3.8 g/dL (3.4-4.8); Alkaline Phosphatase 68 U/L (40-129); Anion Gap 18 (5-15); BUN 22 mg/dL (4-19); BUN/Creat Ratio 13.7 RATIO (10-20); Calcium,Total 9.1 mg/dL (7.6-11.0); Carbon Dioxide 17.0 mmol/L (21.0-32.0); Chloride 98 mmol/L (98-108); Estimated Creatinine Clearance 46.39 ml/min (50-250); Globulin 3.1 g/dL (2.2-4.2); Glucose 135 mg/dL (70-99); Potassium 4.4 mmol/L (3.3-5.1)
[2025-02-05 13:04] LABS: Mucous, Urine 0 SEEN /hpf (<or=2+)
[2025-02-05 13:07] LABS: Color, Urine Yellow (Yellow); Glucose, Dipstick Normal (Normal); Ketone-Dipstick 5 mg/dl (Negative); Leukocyte Esterase-Dipstick Negative /ul (Negative); Nitrite-Dipstick Negative (Negative); Occult Blood-Urine 10 /ul (Negative); Protein-Dipstick 30 mg/dl (Negative); Specific Gravity, Urine 1.015 (1.002-1.030); Urine Bilirubin Dipstick Negative (Negative)
[2025-02-05 13:21] LABS: Red Blood Cells-Urine 0-5 SEEN /hpf (0-5)
[2025-02-05 13:22] LABS: Squamous Epithelial Cells - UA 0-5 SEEN /hpf (0-5)
[2025-02-05] MEDS: Heparin Injection (Vial) 5,000 UNIT/ML VIAL 4000 UNIT IV (14:26)
[2025-02-05] MEDS: HEPARIN/D5w 25,000 UNITS 25,000 UNITS/250 ML IV.SOLN. 9.6 UNITS CONT INF (14:27)
--- NOTE | 2025-02-05 14:28 | PCM.HP.STD ---
HPI - General General Date of Admission: 02/05/25 Date of Service: 02/05/25 Chief Complaint: Pleuritic chest pain and SOB HPI Narrative YOLY ROB, is a 74 y/o M hx of [] presented [facility] ED 02/05/2025 for prostate cancer with mets to the bone, hypertension, anxiety who presented to [facility] ED 02/05/2025 for right lower chest pain worse with inspiration and increased shortness of breath. In the ED patient afebrile, heart rate 97, blood pressure 128/81, respiratory initially 23 and patient 99% on room air. CBC with white count of 13.6 and hemoglobin 14.3, BMP with a BUN of 22 and a creatinine 1.58, glucose 135, troponin of 31 with repeat of 29. CT of the abdomen with diffuse osseous metastasis as well as nondistended fluid-filled bowel loops suggestive of enteritis, CTA chest with large central PE in right mainstem bronchus that extends to the right lower lobe vessels with small amount of distal clot visible in right middle lobe with possible developing pulmonary infarct some possible peripheral wedge-shaped consolidation left lower lung as well. Patient somewhat frail and weak and sats at rest went down to 93% and did have slight elevation of troponin, given this in an abundance of caution patient started on heparin drip and hospitalist was contacted for admission. Patient evaluated with at bedside. They report he has been short of breath for very long time however over the past 2 days his shortness of breath has been significant and he has been having pain over his right lower chest wall worse with coughing and taking a deep breath. Denies any fevers at home, has a chronic cough but denies any new or increased cough at this time. Denied any abdominal pain for me, no nausea or vomiting. Denied any leg swelling. Alternates between diarrhea and constipation but this is not new. Denies any problems urinating. [facility] Medical History Bilateral impacted cerumen Fecal incontinence Flu vaccine need Left hand pain Vitamin B12 deficiency Marijuana use Loose, teeth History of steroid therapy History of transfusion Smokeless tobacco use Wears glasses Anxiety Alcohol use Psoriasis Prostate disease Back pain Lightheaded Former smoker Fecal occult blood test positive Hypocalcemia Constipation Prostate cancer Kidney injury Prostatic enlargement Elevated PSA Anemia Hypertension Colon cancer screening Nocturia BPH (benign prostatic hyperplasia) Depression Arthritis Alcohol abuse Back injury Home Medications ?Medication ?Instructions ?Recorded ?Last Taken ?Type cholecalciferol (vitamin D3) 50 50 mcg PO DAILY supplement 07/25/21 08/31/21 History mcg (2,000 unit) capsule (Vitamin D3) leuprolide (3 month) 22.5 mg (3 22.5 mg subcut .Q3MO BPH 07/25/21 08/16/21 History month) subcutaneous syringe (Eligard) enzalutamide 80 mg tablet (Xtandi) 160 mg PO QHS BPH 08/12/21 08/31/21 History tramadol 50 mg tablet 50 mg PO Q6H PRN pain 11/29/21 Unknown History lorazepam 0.5 mg tablet 0.5 mg PO Q6H PRN anxiety 04/03/22 Unknown History blood pressure monitor (Blood #1 ea 06/15/22 Unknown Rx Pressure Kit) denosumab 120 mg/1.7 mL (70 mg/mL) 120 mg subcut .every three months 03/19/23 Unknown History subcutaneous solution (Xgeva) megestrol 20 mg tablet 20 mg PO BID 03/19/23 Unknown History mirtazapine 30 mg tablet 30 mg PO QHS #90 tabs 07/09/24 Unknown Rx amlodipine 10 mg tablet See Rx Instructions .Route 10/02/24 Unknown Rx .COMPLEX #90 tabs ferrous sulfate 325 mg (65 mg 325 mg PO BID #180 tabs 10/02/24 Unknown Rx iron) tablet metoprolol succinate 50 mg See Rx Instructions .Route 10/02/24 Unknown Rx tablet,extended release 24 hr .COMPLEX #90 tabs losartan 50 mg tablet 50 mg PO BID #180 TABLETS 12/29/24 Unknown Rx Allergy/AdvReac Type Severity Reaction Status Date / Time No Known Allergies Allergy Verified 02/05/25 09:47 Family History Father Anxiety Arthritis Diabetes CVA (cerebral vascular accident) Parkinsons Mother Arthritis Hypertension Surgical History History of tooth extraction H/O transurethral resection of prostate History of colonoscopy History of hernia repair Social History household members: spouse number of children: 2 current occupational status: retired current occupation: maintenance at [employer] pets and animals: No Smoking Status: Current every day smoker tobacco type: smokeless tobacco Smokeless tobacco user: chewing tobacco alcohol intake: current alcohol intake frequency: 3 or more drinks per day Alcohol type: beer details: drinks about 4 beers a day substance use type: does not use ROS ROS Narrative General: Denies fever/chills HENT: Denies headache EYES: Denies changes in vision Resp: Chronic cough that is unchanged, shortness of breath worse over the past 2 days Cardiac: Right lower chest wall pain worse with inspiration and coughing GI: Denies abdominal pain, denies changes in bowel, denies nausea/vomiting : Denies changes in urination Extremity: Denies swelling MSK: Generalized weakness Neuro: Denies any numbness/tingling Heme: Denies any bleeding or bruising Skin: Denies rashes Psychiatric: No complaints voiced Vital Signs Vital Signs Vital Signs: 02/05/25 09:47 02/05/25 11:45 02/05/25 13:00 Temperature 97.9 F Temperature Source Oral Pulse Rate 97 88 101 H Respiratory Rate 23 H 14 Blood Pressure 128/81 H 131/103 H 129/81 H Blood Pressure Mean 96 112 97 Pulse Ox 99 98 93 Oxygen Delivery Method Room Air Room Air Weight Weight: 79.7 kg Body Mass Index (BMI) 23.8 Physical Exam Narrative General: Alert, oriented, no apparent distress HEENT: Atraumatic, normocephalic Eyes: Anicteric, normal conjunctiva, extraocular movements grossly intact Neck: Supple Respiratory: Somewhat shallow respirations, when asked to take deep breaths for auscultation patient hesitant to do so, somewhat poor airflow at the bases without any overt wheezes or crackles on my exam but again poor inspiratory effort Cardiovascular: Regular rate and rhythm GI: Soft, nontender, nondistended Extremities: No edema Musculoskeletal: Moving all extremities Neuro: No overt focal neurological deficits Skin: No rashes appreciated Psych: Cooperative Results Lab / Micro Data 02/05/25 11:25 02/05/25 11:25 Labs: Laboratory Results - last 24 hr 02/05/25 11:25: WBC 13.6 H, RBC 4.67, Hgb 14.3, Hct 41.4, MCV 88.7, MCH 30.6, MCHC 34.5, RDW Std Deviation 45.8 H, RDW Coeff of Jesus 14.2, Plt Count 180, MPV 9.7, Immature Gran % (Auto) 0.500, Neut % (Auto) 90.4 H, Lymph % (Auto) 4.0 L, [place] % (Auto) 4.9, Eos % (Auto) 0.0, Baso % (Auto) 0.2, Absolute Neuts (auto) 12.3 H, Absolute Lymphs (auto) 0.55 L, Nucleated RBC % 0, Sodium 133, Potassium 4.4, Chloride 98, Carbon Dioxide 17.0 L, Anion Gap 18 H, BUN 22 H, Creatinine 1.58 H, Estim Creat Clear Calc 46.39 L, Est GFR (MDRD) Non-Af 46 L, BUN/Creatinine Ratio 13.7, Glucose 135 H, Lactic Acid 2.0, Calcium 9.1, Total Bilirubin 0.96, AST 11, ALT < 5, Alkaline Phosphatase 68, Troponin T High Sens 31 H, Total Protein 6.9, Albumin 3.8, Globulin 3.1, Albumin/Globulin Ratio 1.2, Lipase 11 L 02/05/25 12:58: Urine Color Yellow, Urine Clarity Sl. Cloudy, Urine pH 6.0, Ur Specific [place] 1.015, Urine Protein 30 H, Urine Glucose (UA) Normal, Urine Ketones 5 H, Urine Occult Blood 10 H, Urine Nitrite Negative, Urine Bilirubin Negative, Urine Urobilinogen Normal, Ur Leukocyte Esterase Negative, Urine RBC 0-5 SEEN, Urine WBC 0 SEEN, Ur Squamous Epith Cells 0-5 SEEN, Urine Bacteria 0 SEEN, Urine Mucus 0 SEEN Imaging Radiology Impression Chest CTA 02/05/25 11:17 IMPRESSION: Ascending aorta is dilated to 4 cm. There is a large central pulmonary embolus in the right mainstem bronchus, which extends into the right lower lobe vessels. There is small amount of distal clot visible in the right middle lobe. There is interstitial and alveolar infiltrate in the right lower lung with consolidation in the region of thrombosis, likely developing pulmonary infarct. There are peripheral wedge-shaped regions of consolidation in the left lower lung. There is interstitial and alveolar infiltrate in the right lower lung with consolidation in the region of thrombosis, likely developing pulmonary infarct. There are peripheral wedge-shaped regions of consolidation in the left lower lung. There is a irregular sclerosis throughout the included axial and appendicular skeleton, consistent with diffuse blastic bony metastatic disease. Critical results were discussed with Dr. Dhillon by Dr. Rogers at the time of dictation. Reading [facility] Abdom[facility]/Pelvis CT 02/05/25 11:18 IMPRESSION: Diffuse osseous metastasis. According to history, patient has history of prostate carcinoma. There is no demonstrated rib fracture Chronic interstitial changes in the lung bases with bilateral pleural effusions and bibasilar atelectasis more pronounced in the right lung base in the left. There are pleural calcifications suggesting previous asbestos exposure Simple renal cysts, no specific follow-up needed Cortical thinning in the left kidney Nondistended fluid-filled bowel loops suggest diffuse enteritis No free intraperitoneal fluid, air, or suspicious adenopathy, normal appendix visualized Reading Location: [id number] Assessment & Plan Assessment/Plan (1) Acute pulmonary embolism: PLAN: Plan # Acute PE -CTA chest with large central PE in right mainstem bronchus that extends to the right lower lobe vessels with small amount of distal clot visible in right middle lobe with possible developing pulmonary infarct some possible peripheral wedge-shaped consolidation left lower lung as well - Patient's heart rate primarily in the high 90s, not hypotensive, lowest O2 sat documented 93% not hypoxic -Did have slight elevation of troponin of 31 that downtrended to 29 -BNP ordered -Patient started on heparin drip -No RV strain noted on CT - Will obtain echocardiogram -Incentive spirometer -Patient afebrile, denies any change in his cough, suspect increased shortness of breath is from PE and slight elevation white count from possibly developing pulmonary infarcts, do not see convincing evidence that patient has a concomitant pneumonia, will check Pro-Ian -Can likely be transition to Eliquis or other DOAC on discharge -Will hold Megestrol # History of prostate cancer with mets to the bone -Follows with Dr. Leiva on an outpatient basis #Hypertension - Will hold home antihypertensives and acute phase and add back as long as patient remains hemodynamically stable #Depression/anxiety -Continue home medications #DVT ppx: Patient on full dose heparin Terri Brooks MD Charges/Coding Visit Charges Inpatient E&M: 66206 Init Hosp L2
[2025-02-05 14:30] LABS: Prothrombin Time (Protime)PT. 17.6 SECONDS (11.7-14.9)
[2025-02-05 14:31] LABS: Partial Thromboplast Time 25.4 Seconds (24.1-36.2)
[2025-02-05 14:37] LABS: Troponin T High Sens 2 HR 29 ng/L (<=22)
[2025-02-05 15:07] LABS: SITE Not entered; VBG BASE EXCESS -6 mmol/L (-1.0-3.5); VBG PO2 44 mmHg (25-40); VBG SO2 85 % (50-70); VBG TCO2 18 mmol/L (23-33)
--- NOTE | 2025-02-05 15:19 | ECHOD_ITS ---
Reason For Study ECHO/Echo Complete
[2025-02-05 15:31] LABS: Reflex Lactate? Y
[2025-02-05 15:43] LABS: Pro- Brain NATRIURETIC PEPTIDE 1326 pg/mL (<=900); Procalcitonin 2.86 ng/mL (<=0.10)
--- NOTE | 2025-02-05 16:25 | EX.ED.DYSGE1 ---
HPI History of Present Illness Chief Complaint: Abd Pain Informant: patient Narrative Narrative: Patient is a 74-year-old male with known history of metastatic prostate cancer (follows with Dr. Leiva), BPH and alcohol abuse presenting for worsening right sided rib pain, cough and shortness of breath. He states he for couple months he has had cough that seems to be worse at night and is productive of clear phlegm. Denies any blood in the sputum. He notes that over the past few days he has had worsening of his shortness of breath and started having pain in his right rib region. He states he has been feeling more shaking and 2 episodes of the past few days where he felt he was going to pass out. notes he has been more confused. No recent falls or injuries. Has not been eating or drinking as much since Sunday. Denies associated nausea or vomiting. Does have a history of constipation with intermittent episodes of forceful diarrhea however that is more of an ongoing issue and no acute change in that. Last bowel movement was on Sunday, 3 days ago. Denies any fever or chills. Not on any blood thinners. [place] any history of DVT or PE. Denies any swelling of his legs. No other complaints or concerns at this time. [facility] Medical History Bilateral impacted cerumen Fecal incontinence Flu vaccine need Left hand pain Vitamin B12 deficiency Marijuana use Loose, teeth History of steroid therapy History of transfusion Smokeless tobacco use Wears glasses Anxiety Alcohol use Psoriasis Prostate disease Back pain Lightheaded Former smoker Fecal occult blood test positive Hypocalcemia Constipation Prostate cancer Kidney injury Prostatic enlargement Elevated PSA Anemia Hypertension Colon cancer screening Nocturia BPH (benign prostatic hyperplasia) Depression Arthritis Alcohol abuse Back injury Home Medications ?Medication ?Instructions ?Recorded ?Last Taken ?Type cholecalciferol (vitamin D3) 50 50 mcg PO DAILY supplement 07/25/21 08/31/21 History mcg (2,000 unit) capsule (Vitamin D3) leuprolide (3 month) 22.5 mg (3 22.5 mg subcut .Q3MO BPH 07/25/21 08/16/21 History month) subcutaneous syringe (Eligard) enzalutamide 80 mg tablet (Xtandi) 160 mg PO QHS BPH 08/12/21 08/31/21 History tramadol 50 mg tablet 50 mg PO Q6H PRN pain 11/29/21 Unknown History lorazepam 0.5 mg tablet 0.5 mg PO Q6H PRN anxiety 04/03/22 Unknown History blood pressure monitor (Blood #1 ea 06/15/22 Unknown Rx Pressure Kit) denosumab 120 mg/1.7 mL (70 mg/mL) 120 mg subcut .every three months 03/19/23 Unknown History subcutaneous solution (Xgeva) megestrol 20 mg tablet 20 mg PO BID 03/19/23 Unknown History mirtazapine 30 mg tablet 30 mg PO QHS #90 tabs 07/09/24 Unknown Rx amlodipine 10 mg tablet See Rx Instructions .Route 10/02/24 Unknown Rx .COMPLEX #90 tabs ferrous sulfate 325 mg (65 mg 325 mg PO BID #180 tabs 10/02/24 Unknown Rx iron) tablet metoprolol succinate 50 mg See Rx Instructions .Route 10/02/24 Unknown Rx tablet,extended release 24 hr .COMPLEX #90 tabs losartan 50 mg tablet 50 mg PO BID #180 TABLETS 12/29/24 Unknown Rx Allergy/AdvReac Type Severity Reaction Status Date / Time No Known Allergies Allergy Verified 02/05/25 09:47 Family History Father Anxiety Arthritis Diabetes CVA (cerebral vascular accident) Parkinsons Mother Arthritis Hypertension Surgical History History of tooth extraction H/O transurethral resection of prostate History of colonoscopy History of hernia repair Social History household members: spouse number of children: 2 current occupational status: retired current occupation: maintenance at [employer] pets and animals: No Smoking Status: Current every day smoker tobacco type: smokeless tobacco Smokeless tobacco user: chewing tobacco alcohol intake: current alcohol intake frequency: 3 or more drinks per day Alcohol type: beer details: drinks about 4 beers a day substance use type: does not use ROS ROS ED Constitutional Constitutional ED: Denies chills or fever(s) Cardiovascular Cardiovascular: Reports chest pain Respiratory/Chest Respiratory/Chest: Reports cough, dyspnea and sputum Gastrointestinal Gastrointestinal: Reports constipation; Denies abdominal pain, nausea or vomiting Musculoskeletal Musculoskeletal: Denies arthralgias, back pain or myalgias Neurologic Neurologic: Reports weakness; Denies paresthesias Hematologic/Lymphatic Hematologic/Lymphatic: Denies easy bleeding or easy bruising EXAM Physical Exam Const Vital Signs: 02/05/25 09:47 02/05/25 11:45 02/05/25 13:00 Temperature 97.9 F Temperature Source Oral Pulse Rate 97 88 101 H Respiratory Rate 23 H 14 Blood Pressure 128/81 H 131/103 H 129/81 H Blood Pressure Mean 96 112 97 Pulse Ox 99 98 93 Oxygen Delivery Method Room Air Room Air Positive well nourished and well developed General Appearance ED: well developed and NAD HEENT Reports moist mucous membranes Eyes PERRL General Eye ED: Negative for pale conjunctiva Neck supple and no JVD Chest Wall inspection of chest normal and palpation of chest normal Chest Narrative: No chest wall tenderness to palpation. No rash on the chest wall. Resp normal respiratory effort Resp Narrative: Coarse breath sounds which are diminished at the right base Auscultation: Negative for rales or wheezes Cardio regular rate, regular rhythm and no murmurs GI normal to inspection, nondistended, normoactive bowel sounds and non-tender Extremity normal to inspection General Extremety ED: Negative for edema General Extremity: Negative for edema Neuro oriented x3 Sensorium / Orientation: alert Motor Exam: general weakness Psych mental status grossly normal Skin no rashes or lesions noted and no wounds MDM MDM MDM Narrative Medical decision making narrative: Patient evaluated for worsening weakness, near syncope and this pleuritic right-sided chest pain. Differential includes evolving to pulmonary emboli, pleural effusion, pneumonia, ACS (lower suspicion based on the HPI), electrolyte derangement, referred biliary colic/choledocholithiasis and urinary tract infection. As he is high risk per pulmonary CTA is obtained and lieu of obtaining a D-dimer first. CBC has a leukocytosis of 13.6 but otherwise normal. No left shift appreciated. This could be reactive. BMP shows bicarb of 17 with an elevated anion gap of 18. His creatinine is 1.58 which is his baseline. Patient was given IV fluids in the emergency room. Could have a component of dehydration. Initial high-sensitivity troponin is 31 EKG does not show any significant ischemic changes. Will continue to trend. Urinalysis not consistent with infection. His CTA of the chest does show large central pulmonary emboli of the right mainstream bronchus which extends into the right lower lobe vessels with associated pulmonary infarct in both the right and left lower lungs. He also has diffuse osseous metastasis however this is known to the patient. Radiology result was discussed directly with radiologist. As patient is reporting abnormal bowel movements it is possible the pain could be referred from his abdomen and not in his lungs a CT of the abdomen pelvis was also obtained. This did not show any acute significant abnormality. There was not distended fluid-filled bowel loops suggestive enteritis however he is not having any diarrhea and has not had a bowel movement past few days I do not think this is clinically relevant at this time. Patient will be admitted. I suspect this is the cause of his presentation today consistent with his clinical picture. He is actually hemodynamic stable with no O2 requirements at this time. Given his large clot burden and associated pulmonary infarct will admit. Suspect this is more of a pulmonary infarct and not pneumonia as he does not report any fever, change in his sputum production however after discussion with hospitalist we will add on a procalcitonin to see if he does have signs of underlying pneumonia and decide on antibiotics at that point. In addition VBG is added on given signs of metabolic acidosis on his BMP. Case discussed with hospitalist, Dr. Brooks for admission. Patient and are agreeable this plan of care. Patient started on heparin drip after discussion with hospitalist for treatment of pulmonary emboli. Lab Data Attestation: I reviewed the patient's lab results. Labs: Laboratory Results - last 24 hr 02/05/25 02/05/25 02/05/25 11:25 12:58 13:38 WBC 13.6 H RBC 4.67 Hgb 14.3 Hct 41.4 MCV 88.7 MCH 30.6 MCHC 34.5 RDW Std Deviation 45.8 H RDW Coeff of Jesus 14.2 Plt Count 180 MPV 9.7 Immature Gran % (Auto) 0.500 Neut % (Auto) 90.4 H Lymph % (Auto) 4.0 L [place] % (Auto) 4.9 Eos % (Auto) 0.0 Baso % (Auto) 0.2 Absolute Neuts (auto) 12.3 H Absolute Lymphs (auto) 0.55 L Nucleated RBC % 0 PT INR APTT Sodium 133 Potassium 4.4 Chloride 98 Carbon Dioxide 17.0 L Anion Gap 18 H BUN 22 H Creatinine 1.58 H Estim Creat Clear Calc 46.39 L Est GFR (MDRD) Non-Af 46 L BUN/Creatinine Ratio 13.7 Glucose 135 H Lactic Acid 2.0 Calcium 9.1 Total Bilirubin 0.96 AST 11 ALT < 5 Alkaline Phosphatase 68 Troponin T High Sens 31 H Troponin T Hi Sens 2 Hr 29 H NT pro BNP II 1326 H Total Protein 6.9 Albumin 3.8 Globulin 3.1 Albumin/Globulin Ratio 1.2 Lipase 11 L Procalcitonin 2.86 H Urine Color Yellow Urine Clarity Sl. Cloudy Urine pH 6.0 Ur Specific [place] 1.015 Urine Protein 30 H Urine Glucose (UA) Normal Urine Ketones 5 H Urine Occult Blood 10 H Urine Nitrite Negative Urine Bilirubin Negative Urine Urobilinogen Normal Ur Leukocyte Esterase Negative Urine RBC 0-5 SEEN Urine WBC 0 SEEN Ur Squamous Epith Cells 0-5 SEEN Urine Bacteria 0 SEEN Urine Mucus 0 SEEN 02/05/25 14:02 WBC RBC Hgb Hct MCV MCH MCHC RDW Std Deviation RDW Coeff of Jesus Plt Count MPV Immature Gran % (Auto) Neut % (Auto) Lymph % (Auto) [place] % (Auto) Eos % (Auto) Baso % (Auto) Absolute Neuts (auto) Absolute Lymphs (auto) Nucleated RBC % PT 17.6 H INR 1.4 APTT 25.4 Sodium Potassium Chloride Carbon Dioxide Anion Gap BUN Creatinine Estim Creat Clear Calc Est GFR (MDRD) Non-Af BUN/Creatinine Ratio Glucose Lactic Acid Calcium Total Bilirubin AST ALT Alkaline Phosphatase Troponin T High Sens Troponin T Hi Sens 2 Hr NT pro BNP II Total Protein Albumin Globulin Albumin/Globulin Ratio Lipase Procalcitonin Urine Color Urine Clarity Urine pH Ur Specific [place] Urine Protein Urine Glucose (UA) Urine Ketones Urine Occult Blood Urine Nitrite Urine Bilirubin Urine Urobilinogen Ur Leukocyte Esterase Urine RBC Urine WBC Ur Squamous Epith Cells Urine Bacteria Urine Mucus Radiography Diagnostic Testing: Clinical Impression(s) from Imaging Studies Chest CTA 02/05/25 11:17 IMPRESSION: Ascending aorta is dilated to 4 cm. There is a large central pulmonary embolus in the right mainstem bronchus, which extends into the right lower lobe vessels. There is small amount of distal clot visible in the right middle lobe. There is interstitial and alveolar infiltrate in the right lower lung with consolidation in the region of thrombosis, likely developing pulmonary infarct. There are peripheral wedge-shaped regions of consolidation in the left lower lung. There is interstitial and alveolar infiltrate in the right lower lung with consolidation in the region of thrombosis, likely developing pulmonary infarct. There are peripheral wedge-shaped regions of consolidation in the left lower lung. There is a irregular sclerosis throughout the included axial and appendicular skeleton, consistent with diffuse blastic bony metastatic disease. Critical results were discussed with Dr. Dhillon by Dr. Rogers at the time of dictation. Reading Location: [facility] Abdomen/Pelvis CT 02/05/25 11:18 IMPRESSION: Diffuse osseous metastasis. According to history, patient has history of prostate carcinoma. There is no demonstrated rib fracture Chronic interstitial changes in the lung bases with bilateral pleural effusions and bibasilar atelectasis more pronounced in the right lung base in the left. There are pleural calcifications suggesting previous asbestos exposure Simple renal cysts, no specific follow-up needed Cortical thinning in the left kidney Nondistended fluid-filled bowel loops suggest diffuse enteritis No free intraperitoneal fluid, air, or suspicious adenopathy, normal appendix visualized Reading Location: [facility] Rhythm Strip Rhythm Strip: Sinus Rhythm Rate: 89 Ectopy: None EKG Initial EKG: Attestation: I personally reviewed and interpreted this EKG as follows: Interpretation: Sinus Rhythm Comments: Normal sinus rhythm rate of 89 bpm Borderline left axis deviation Normal intervals T wave inversions in 3, V1 through V3 which are more pronounced compared to prior EKGs Management Discussion w/another healthcare provider: Hospitalist Discharge Plan Dx/Rx/DC Orders Clinical Impression: Acute pulmonary embolism, Near syncope, Prostate cancer, Embolism, pulmonary with infarction Disposition Disposition: Acute Care Hospital [facility] Discharge Date/Time: 02/05/25 15:10
[2025-02-05 16:47] LABS: Hematocrit 39.2 % (40-54); Hemoglobin 13.7 g/dL (13.0-16.5); Immature Granulocytes Count 0.070 X10^3/uL (0.0-0.0); Mean Corp Hgb Conc 34.9 g/dL (32-36); Mean Corpuscular Volume 89.3 fL (80-94); Mean Platelet Vol. 10.0 fl (6.2-12.0); NRBC Flagged by Analyzer 0 % (0-5); Platelet Count 215 K/mm3 (150-450); RBC Distribution Width CV 14.1 % (11.6-14.6); RBC Distribution Width SD 46.3 fl (35.1-43.9); Red Blood Count 4.39 M/mm3 (4.6-6.2); White Blood Count 13.1 K/mm3 (4.4-11.0)
--- NOTE | 2025-02-05 16:55 | PCM.HOSP.N ---
Hospitalist Note Pro-Ian is elevated at 2.8 however suspect it would be elevated given his prostate cancer but difficult to differentiate underlying cause given presentation, given he has been coughing and in triage note he initially endorsed worsening cough, he does have a shortness of breath as well as elevated white count with areas on CT scan that query developing pulmonary infarcts but cannot rule out infiltrates (including on the left side which does not have any note of clot) we will treat/workup for CAP, repeat Pro-Ian in the a.m.
[2025-02-05 17:25] LABS: Troponin T High Sens 4 HR 32 ng/L (<=22)
[2025-02-05] MEDS: Ceftriaxone 2 GM in 0.9% Normal Saline (50mL MB+) 50 ML IV (18:20)
[2025-02-05] MEDS: 0.9% Normal Saline (250mL Bag) 250 ML 15 ML IV (18:20)
[2025-02-05] MEDS: 0.9% Saline Lock 10 ML Syringe IV (18:24)
[2025-02-05] MEDS: Azithromycin 500 MG in 0.9% Normal Saline (250mL Bag) 250 ML 250 MG IV (19:09)
--- NOTE | 2025-02-05 20:00 | CASEMGMT ---
Care Management Face to Face with patient for initial transition planning/care coordination assessment in the ED.? 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 Patient alert and oriented. Patient willing to participate in assessment and is able to answer all questions appropriately.? Care providers, pharmacy, and demographics verified. Admitting Diagnosis: ?Abd pain Other diagnosis history: ?history of prostate cancer, BPH, SOB PCP: ??Gab Specialists: ?Cali Hermosillo Dasari Preferred Pharmacy: [facility] Insurance: [employer] Prescription Benefit: ?yes Living Will/HPOA: ?not done, may want to complete while admitted LNOK: ? Living Arrangements: ?patient lives with in a two story farm house, they only use 1st floor.? Daughter who has CP also lives with patient.?? Patient reports being independent with ADLs and IADLs.?? Transportation: ?patients drives DME: ?cane, handicap ramp, roll in shower, grab bar in shower HHC: ?none SNF/Rehab: ?none Community Resources: ?used to be on palliative, was discontinued Behavioral Health History: ?anxiety and depression Patient goals: Patient wishes to discharge home, denies need for home health care at this time. Patient denies any further needs or concerns at this time. Disposition Plan: admission to acute; RN CM/SW to follow for discharge planning needs that may arise. Lorin Prabhakar, COMMUNITY AMBASSADOR, COMPONENT OVERHAUL OPERATOR
[2025-02-05 20:25] LABS: Partial Thromboplast Time 154.7 Seconds (24.1-36.2)
[2025-02-05] MEDS: ENZALUTAMIDE 40 MG TABLET 160 MG PO (20:54)
[2025-02-06 03:58] VITALS: BP 113/69; PULSE 84; RESP 16; TEMP 37; O2SAT 96
[2025-02-06 05:06] LABS: Hematocrit 34.2 % (40-54); Hemoglobin 11.9 g/dL (13.0-16.5); Immature Granulocytes Count 0.050 X10^3/uL (0.0-0.0); Mean Corp Hgb Conc 34.8 g/dL (32-36); Mean Corpuscular Volume 88.8 fL (80-94); Mean Platelet Vol. 9.8 fl (6.2-12.0); NRBC Flagged by Analyzer 0 % (0-5); POSITIVE DIFFERENTIAL YES; Platelet Count 183 K/mm3 (150-450); RBC Distribution Width CV 14.1 % (11.6-14.6); RBC Distribution Width SD 45.4 fl (35.1-43.9); Red Blood Count 3.85 M/mm3 (4.6-6.2); White Blood Count 11.3 K/mm3 (4.4-11.0)
[2025-02-06 05:14] LABS: Partial Thromboplast Time 40.8 Seconds (24.1-36.2)
[2025-02-06] MEDS: Heparin Nomogram Adjustment 5,000 UNIT/ML VIAL IV (05:26)
[2025-02-06 05:37] LABS: Anion Gap 16 (5-15); BUN 30 mg/dL (4-19); BUN/Creat Ratio 14.6 RATIO (10-20); Calcium,Total 8.2 mg/dL (7.6-11.0); Carbon Dioxide 16.5 mmol/L (21.0-32.0); Chloride 98 mmol/L (98-108); Estimated Creatinine Clearance 35.41 ml/min (50-250); Glucose 123 mg/dL (70-99); Potassium 4.4 mmol/L (3.3-5.1); Procalcitonin 6.61 ng/mL (<=0.10)
--- NOTE | 2025-02-06 08:22 | PN.HOSP_ITS ---
Reason for Visit
--- NOTE | 2025-02-06 08:22 | PCM.PN.HOSP ---
Reason for Visit Chief Complaint: Pleuritic chest pain and SOB Subjective Subjective feeling well. Objective Data Objective Data Vital Signs: Vital Signs Temp Pulse Resp BP Pulse Ox O2 Del Method 37.0 C 84 16 113/69 96 Room Air 02/06/25 03:58 02/06/25 03:58 02/06/25 03:58 02/06/25 03:58 02/06/25 03:58 02/06/25 03:58 Oxygen Delivery Method Room Air Weight: 79.5 kg Body Mass Index (BMI) 23.8 Intake & Output: Intake and Output for Last 24 Hours 02/04/25 02/05/25 02/06/25 23:59 23:59 23:59 Intake Total 890.13 / 890.13 45.43 / 45.43 Output Total 200 / 400 200 / 200 Balance 690.13 / 490.13 -154.57 / -154.57 Lab / Micro Data 02/06/25 04:47 02/06/25 04:47 Labs: Laboratory Results - last 24 hr 02/05/25 11:25: WBC 13.6 H, RBC 4.67, Hgb 14.3, Hct 41.4, MCV 88.7, MCH 30.6, MCHC 34.5, RDW Std Deviation 45.8 H, RDW Coeff of Jesus 14.2, Plt Count 180, MPV 9.7, Immature Gran % (Auto) 0.500, Neut % (Auto) 90.4 H, Lymph % (Auto) 4.0 L, [place] % (Auto) 4.9, Eos % (Auto) 0.0, Baso % (Auto) 0.2, Absolute Neuts (auto) 12.3 H, Absolute Lymphs (auto) 0.55 L, Nucleated RBC % 0, Sodium 133, Potassium 4.4, Chloride 98, Carbon Dioxide 17.0 L, Anion Gap 18 H, BUN 22 H, Creatinine 1.58 H, Estim Creat Clear Calc 46.39 L, Est GFR (MDRD) Non-Af 46 L, BUN/Creatinine Ratio 13.7, Glucose 135 H, Lactic Acid 2.0, Calcium 9.1, Total Bilirubin 0.96, AST 11, ALT < 5, Alkaline Phosphatase 68, Troponin T High Sens 31 H, Total Protein 6.9, Albumin 3.8, Globulin 3.1, Albumin/Globulin Ratio 1.2, Lipase 11 L 02/05/25 12:58: Urine Color Yellow, Urine Clarity Sl. Cloudy, Urine pH 6.0, Ur Specific [place] 1.015, Urine Protein 30 H, Urine Glucose (UA) Normal, Urine Ketones 5 H, Urine Occult Blood 10 H, Urine Nitrite Negative, Urine Bilirubin Negative, Urine Urobilinogen Normal, Ur Leukocyte Esterase Negative, Urine RBC 0-5 SEEN, Urine WBC 0 SEEN, Ur Squamous Epith Cells 0-5 SEEN, Urine Bacteria 0 SEEN, Urine Mucus 0 SEEN 02/05/25 13:38: Troponin T Hi Sens 2 Hr 29 H, NT pro BNP II 1326 H, Procalcitonin 2.86 H 02/05/25 14:02: PT 17.6 H, INR 1.4, APTT 25.4 02/05/25 16:16: WBC 13.1 H, RBC 4.39 L, Hgb 13.7, Hct 39.2 L, MCV 89.3, MCH 31.2, MCHC 34.9, RDW Std Deviation 46.3 H, RDW Coeff of Jesus 14.1, Plt Count 215, MPV 10.0, Immature Gran % (Auto) 0.500, Neut % (Auto) 88.3 H, Lymph % (Auto) 5.6 L, [place] % (Auto) 5.5, Eos % (Auto) 0.0, Baso % (Auto) 0.1, Absolute Neuts (auto) 11.6 H, Absolute Lymphs (auto) 0.74 L, Nucleated RBC % 0, Lactic Acid 1.6, Troponin T Hi Sens 4Hr 32 H 02/05/25 19:58: APTT 154.7 H* 02/06/25 04:47: WBC 11.3 H, RBC 3.85 L, Hgb 11.9 L, Hct 34.2 L, MCV 88.8, MCH 30.9, MCHC 34.8, RDW Std Deviation 45.4 H, RDW Coeff of Jesus 14.1, Plt Count 183, MPV 9.8, Immature Gran % (Auto) 0.400, Neut % (Auto) 88.9 H, Lymph % (Auto) 5.3 L, [place] % (Auto) 5.2, Eos % (Auto) 0.0, Baso % (Auto) 0.2, Absolute Neuts (auto) 10.0 H, Absolute Lymphs (auto) 0.60 L, Nucleated RBC % 0, APTT 40.8 H, Sodium 131 L, Potassium 4.4, Chloride 98, Carbon Dioxide 16.5 L, Anion Gap 16 H, BUN 30 H, Creatinine 2.07 H, Estim Creat Clear Calc 35.41 L, Est GFR (MDRD) Non-Af 33 L, BUN/Creatinine Ratio 14.6, Glucose 123 H, Calcium 8.2, Procalcitonin 6.61 H Micro: Microbiology 02/05/25 17:15 Mucosa - Nasopharyngeal Coronavirus COVID-19 PCR - Final 02/05/25 17:15 Mucosa - Nasopharyngeal Respiratory Panel (PCR) - Final ABG Data ABG results: ABG 02/05/25 15:02 Specimen Type MARIEL Sample Site Not entered VBG pH 7.49 H VBG pO2 44 H VBG HCO3 17 L VBG Total CO2 18 L VBG O2 Sat (Calc) 85 H VBG Base Excess -6 L POC Mix VBG pCO2 Pt Tmp 22.6 L O2 Delivery Device Not entered Radiography Diagnostic Testing: Radiology Impression Chest CTA 02/05/25 11:17 IMPRESSION: Ascending aorta is dilated to 4 cm. There is a large central pulmonary embolus in the right mainstem bronchus, which extends into the right lower lobe vessels. There is small amount of distal clot visible in the right middle lobe. There is interstitial and alveolar infiltrate in the right lower lung with consolidation in the region of thrombosis, likely developing pulmonary infarct. There are peripheral wedge-shaped regions of consolidation in the left lower lung. There is interstitial and alveolar infiltrate in the right lower lung with consolidation in the region of thrombosis, likely developing pulmonary infarct. There are peripheral wedge-shaped regions of consolidation in the left lower lung. There is a irregular sclerosis throughout the included axial and appendicular skeleton, consistent with diffuse blastic bony metastatic disease. Critical results were discussed with Dr. Dhillon by Dr. Rogers at the time of dictation. Reading Location: [facility] Abdomen/Pelvis CT 02/05/25 11:18 IMPRESSION: Diffuse osseous metastasis. According to history, patient has history of prostate carcinoma. There is no demonstrated rib fracture Chronic interstitial changes in the lung bases with bilateral pleural effusions and bibasilar atelectasis more pronounced in the right lung base in the left. There are pleural calcifications suggesting previous asbestos exposure Simple renal cysts, no specific follow-up needed Cortical thinning in the left kidney Nondistended fluid-filled bowel loops suggest diffuse enteritis No free intraperitoneal fluid, air, or suspicious adenopathy, normal appendix visualized Reading Location: [facility] Echocardiogram 02/05/25 15:19 Interpretation Summary The study was technically difficult. Mild concentric left ventricular hypertrophy. The left ventricular ejection fraction is 65 %. Stage 1 diastolic dysfunction. Trivial pericardial effusion. Ordering Physician: Terri Brooks Referring Physician: sEtefany De Guzman Performed By: Yamila Aadms RCS Rhythm Strip Rhythm Strip: Sinus Rhythm Rate: 89 Ectopy: None Physical Exam Const alert and no apparent distress HEENT head/scalp atraumatic and moist oral mucous membranes Neck no lymphadenopathy, supple and no JVD Extremity normal to inspection, full ROM and no clubbing, cyanosis or edema Extremity Narrative: no calf tenderness. Neuro Sensorium / Orientation: awake and alert Psych affect normal Assessment & Plan Assessment/Plan (1) Acute pulmonary embolism: PLAN: Plan Acute PE CTA chest with large central PE in right mainstem bronchus that extends to the right lower lobe vessels with small amount of distal clot visible in right middle lobe with possible developing pulmonary infarct some possible peripheral wedge-shaped consolidation left lower lung as well Patient's heart rate primarily in the high 90s, not hypotensive, lowest O2 sat documented 93% not hypoxic Patient started on heparin drip. DC with apixaban Echo shows an EF 65%, stage I DD. Trivial pericardial effusion. Elevated troponin slight elevation demand ischemia 2/2 PE no additional work up. Chronic condition: History of prostate cancer with mets to the bone-Follows with Dr. Leiva on an outpatient basis Hypertension- Will hold home antihypertensives and acute phase and add back as long as patient remains hemodynamically stable Depression/anxiety-Continue home medications DVT ppx: Patient on full dose heparin
[2025-02-06 09:00] VITALS: BP 106/72; PULSE 89; RESP 18; TEMP 37.1; O2SAT 96; O2SAT 97
[2025-02-06] MEDS: Ceftriaxone 2 GM in 0.9% Normal Saline (50mL MB+) 50 ML IV (09:12)
[2025-02-06] MEDS: FLU VACCINE HIGH DOSE 25-26(65YR UP) 180 MCG/0.5 ML SYRINGE IM (09:27)
[2025-02-06] MEDS: Azithromycin 500 MG in 0.9% Normal Saline (250mL Bag) 250 ML 250 MG IV (09:58)
--- NOTE | 2025-02-06 10:57 | PCM.DC.SUM ---
Providers Date of Admission: 02/05/25 Primary Care Physician: Dr. Estefany De Guzman MD Reason For Visit: NEW PE Diagnosis Discharge Diagnosis (1) Acute pulmonary embolism: Status: Acute Code(s): I26.99 - Other pulmonary embolism without acute cor pulmonale Plan Acute PE CTA chest with large central PE in right mainstem bronchus that extends to the right lower lobe vessels with small amount of distal clot visible in right middle lobe with possible developing pulmonary infarct some possible peripheral wedge-shaped consolidation left lower lung as well Patient's heart rate primarily in the high 90s, not hypotensive, lowest O2 sat documented 93% not hypoxic Patient started on heparin drip. DC with apixaban Echo shows an EF 65%, stage I DD. Trivial pericardial effusion. Pneumonia discharge with Augmentin Hemoptysis 2/2 pneumonia v pulmonary infarct complicated by anticoagulation. Elevated troponin slight elevation demand ischemia 2/2 PE no additional work up. Chronic condition: History of prostate cancer with mets to the bone-Follows with Dr. Leiva on an outpatient basis Hypertension- Will hold home antihypertensives and acute phase and add back as long as patient remains hemodynamically stable Depression/anxiety-Continue home medications DVT ppx: Patient on full dose heparin Medications at Discharge Home Medications cholecalciferol (vitamin D3) 50 mcg (2,000 unit) capsule (Vitamin D3) 50 mcg PO DAILY supplement 07/25/21 leuprolide (3 month) 22.5 mg (3 month) subcutaneous syringe (Eligard) 22.5 mg subcut .Q3MO BPH 07/25/21 enzalutamide 80 mg tablet (Xtandi) 160 mg PO QHS BPH 08/12/21 tramadol 50 mg tablet 50 mg PO Q6H PRN pain 11/29/21 lorazepam 0.5 mg tablet 0.5 mg PO Q6H PRN anxiety 04/03/22 blood pressure monitor (Blood Pressure Kit) #1 ea 06/15/22 denosumab 120 mg/1.7 mL (70 mg/mL) subcutaneous solution (Xgeva) 120 mg subcut .every three months 03/19/23 megestrol 20 mg tablet 20 mg PO BID 03/19/23 mirtazapine 30 mg tablet 30 mg PO QHS #90 tabs 07/09/24 amlodipine 10 mg tablet See Rx Instructions .Route .COMPLEX #90 tabs 10/02/24 ferrous sulfate 325 mg (65 mg iron) tablet 325 mg PO BID #180 tabs 10/02/24 metoprolol succinate 50 mg tablet,extended release 24 hr See Rx Instructions .Route .COMPLEX #90 tabs 10/02/24 losartan 50 mg tablet 50 mg PO BID #180 TABLETS 12/29/24 amoxicillin 875 mg-potassium clavulanate 125 mg tablet 1 tab PO BID #10 tabs 02/06/25 apixaban 5 mg (74 tabs) tablets in a dose pack (Eliquis DVT-PE Treat 30D Start) See Rx Instructions PO .COMPLEX #74 tabs 02/06/25 guaifenesin 1,200 mg tablet, extended release 12 hr (Mucus Relief ER) 1,200 mg PO BID #10 tabs 02/06/25 Hospital Course Operations None Procedures 2-D Echocardiogram Summary of Care Provided Minutes Spent on Discharge: 32 Weight / BMI Weight Weight: 79.5 kg Body Mass Index (BMI) 23.8 ABG / Lab / Microbiology Data 02/06/25 04:47 02/06/25 04:47 Laboratory: Laboratory Results - last 24 hr 02/05/25 11:25: WBC 13.6 H, RBC 4.67, Hgb 14.3, Hct 41.4, MCV 88.7, MCH 30.6, MCHC 34.5, RDW Std Deviation 45.8 H, RDW Coeff of Jesus 14.2, Plt Count 180, MPV 9.7, Immature Gran % (Auto) 0.500, Neut % (Auto) 90.4 H, Lymph % (Auto) 4.0 L, [place] % (Auto) 4.9, Eos % (Auto) 0.0, Baso % (Auto) 0.2, Absolute Neuts (auto) 12.3 H, Absolute Lymphs (auto) 0.55 L, Nucleated RBC % 0, Sodium 133, Potassium 4.4, Chloride 98, Carbon Dioxide 17.0 L, Anion Gap 18 H, BUN 22 H, Creatinine 1.58 H, Estim Creat Clear Calc 46.39 L, Est GFR (MDRD) Non-Af 46 L, BUN/Creatinine Ratio 13.7, Glucose 135 H, Lactic Acid 2.0, Calcium 9.1, Total Bilirubin 0.96, AST 11, ALT < 5, Alkaline Phosphatase 68, Troponin T High Sens 31 H, Total Protein 6.9, Albumin 3.8, Globulin 3.1, Albumin/Globulin Ratio 1.2, Lipase 11 L 02/05/25 12:58: Urine Color Yellow, Urine Clarity Sl. Cloudy, Urine pH 6.0, Ur Specific [place] 1.015, Urine Protein 30 H, Urine Glucose (UA) Normal, Urine Ketones 5 H, Urine Occult Blood 10 H, Urine Nitrite Negative, Urine Bilirubin Negative, Urine Urobilinogen Normal, Ur Leukocyte Esterase Negative, Urine RBC 0-5 SEEN, Urine WBC 0 SEEN, Ur Squamous Epith Cells 0-5 SEEN, Urine Bacteria 0 SEEN, Urine Mucus 0 SEEN 02/05/25 13:38: Troponin T Hi Sens 2 Hr 29 H, NT pro BNP II 1326 H, Procalcitonin 2.86 H 02/05/25 14:02: PT 17.6 H, INR 1.4, APTT 25.4 02/05/25 16:16: WBC 13.1 H, RBC 4.39 L, Hgb 13.7, Hct 39.2 L, MCV 89.3, MCH 31.2, MCHC 34.9, RDW Std Deviation 46.3 H, RDW Coeff of Jesus 14.1, Plt Count 215, MPV 10.0, Immature Gran % (Auto) 0.500, Neut % (Auto) 88.3 H, Lymph % (Auto) 5.6 L, [place] % (Auto) 5.5, Eos % (Auto) 0.0, Baso % (Auto) 0.1, Absolute Neuts (auto) 11.6 H, Absolute Lymphs (auto) 0.74 L, Nucleated RBC % 0, Lactic Acid 1.6, Troponin T Hi Sens 4Hr 32 H 02/05/25 19:58: APTT 154.7 H* 02/06/25 04:47: WBC 11.3 H, RBC 3.85 L, Hgb 11.9 L, Hct 34.2 L, MCV 88.8, MCH 30.9, MCHC 34.8, RDW Std Deviation 45.4 H, RDW Coeff of Jesus 14.1, Plt Count 183, MPV 9.8, Immature Gran % (Auto) 0.400, Neut % (Auto) 88.9 H, Lymph % (Auto) 5.3 L, [place] % (Auto) 5.2, Eos % (Auto) 0.0, Baso % (Auto) 0.2, Absolute Neuts (auto) 10.0 H, Absolute Lymphs (auto) 0.60 L, Nucleated RBC % 0, APTT 40.8 H, Sodium 131 L, Potassium 4.4, Chloride 98, Carbon Dioxide 16.5 L, Anion Gap 16 H, BUN 30 H, Creatinine 2.07 H, Estim Creat Clear Calc 35.41 L, Est GFR (MDRD) Non-Af 33 L, BUN/Creatinine Ratio 14.6, Glucose 123 H, Calcium 8.2, Procalcitonin 6.61 H Microbiology: Microbiology 02/05/25 17:15 Mucosa - Nasopharyngeal Coronavirus COVID-19 PCR - Final 02/05/25 17:15 Mucosa - Nasopharyngeal Respiratory Panel (PCR) - Final ABG: ABG 02/05/25 15:02 Specimen Type MARIEL Sample Site Not entered VBG pH 7.49 H VBG pO2 44 H VBG HCO3 17 L VBG Total CO2 18 L VBG O2 Sat (Calc) 85 H VBG Base Excess -6 L POC Mix VBG pCO2 Pt Tmp 22.6 L O2 Delivery Device Not entered Radiography Diagnostic Testing: Radiology Impression Chest CTA 02/05/25 11:17 IMPRESSION: Ascending aorta is dilated to 4 cm. There is a large central pulmonary embolus in the right mainstem bronchus, which extends into the right lower lobe vessels. There is small amount of distal clot visible in the right middle lobe. There is interstitial and alveolar infiltrate in the right lower lung with consolidation in the region of thrombosis, likely developing pulmonary infarct. There are peripheral wedge-shaped regions of consolidation in the left lower lung. There is interstitial and alveolar infiltrate in the right lower lung with consolidation in the region of thrombosis, likely developing pulmonary infarct. There are peripheral wedge-shaped regions of consolidation in the left lower lung. There is a irregular sclerosis throughout the included axial and appendicular skeleton, consistent with diffuse blastic bony metastatic disease. Critical results were discussed with Dr. Dhillon by Dr. Rogers at the time of dictation. Reading Location: [facility] Abdomen/Pelvis CT 02/05/25 11:18 IMPRESSION: Diffuse osseous metastasis. According to history, patient has history of prostate carcinoma. There is no demonstrated rib fracture Chronic interstitial changes in the lung bases with bilateral pleural effusions and bibasilar atelectasis more pronounced in the right lung base in the left. There are pleural calcifications suggesting previous asbestos exposure Simple renal cysts, no specific follow-up needed Cortical thinning in the left kidney Nondistended fluid-filled bowel loops suggest diffuse enteritis No free intraperitoneal fluid, air, or suspicious adenopathy, normal appendix visualized Reading Location: [id number] Echocardiogram 02/05/25 15:19 Interpretation Summary The study was technically difficult. Mild concentric left ventricular hypertrophy. The left ventricular ejection fraction is 65 %. Stage 1 diastolic dysfunction. Trivial pericardial effusion. Ordering Physician: Terri Brooks Referring Physician: Estefany De Guzman Performed By: Yamila Adams RCS D/C Instructions DC O2, CPAP, BIPAP Needs Home O2 Discharge instructions: No Meaningful Use Info Meaningful Use Meaningful Use Diagnoses (Choose all that apply): VTE VTE Anticoag overlap given w/in hospital stay or rx'd at dc?: No Pt receive overlap for 5 days?: No Reason overlap not ordered, prescribed, or given for 5 days: Treatment Not Indicated Discharge Plan Admission Admit Date/Time: 02/05/25 14:28 Primary Reason for Your Visit: pulmonary embolism Attending Provider: Jf Mo Primary Care Provider: Estefany De Guzman Consulting Providers: Terri Brooks Discharge Orders/Prescriptions Prescriptions: New guaifenesin [Mucus Relief ER] 1,200 mg Tablet Extended Release 12hr 1,200 mg PO BID Qty: 10 0RF Eliquis DVT-PE Treat 30D Start 5 mg (74 tabs) tablets,dose pack See Rx Instructions .ROUTE .COMPLEX Qty: 74 0RF Rx Instructions: orally per package directions amoxicillin-pot clavulanate 875-125 mg tablet 1 tab PO BID Qty: 10 0RF Continued tramadol 50 mg tablet 50 mg PO Q6H PRN (Reason: pain) lorazepam 0.5 mg tablet 0.5 mg PO Q6H PRN (Reason: anxiety) Patient Comments: TAKE ONE (1) TABLET BY MOUTH EVERY 6 HOURS, NEEDED FOR ANXIETY PALLIATIVE PATIENT Xgeva 120 mg/1.7 mL (70 mg/mL) solution 120 mg subcut .every three months megestrol 20 mg tablet 20 mg PO BID cholecalciferol (vitamin D3) [Vitamin D3] 50 mcg (2,000 unit) Capsule 50 mcg PO DAILY Eligard (3 month) 22.5 mg Syringe 22.5 mg SUBCUT .Q3MO Xtandi 80 mg Tablet 160 mg PO QHS mirtazapine 30 mg tablet 30 mg PO QHS Qty: 90 3RF ferrous sulfate 325 mg (65 mg iron) tablet 325 mg PO BID Qty: 180 3RF amlodipine 10 mg tablet See Rx Instructions .ROUTE .COMPLEX Qty: 90 3RF Dose Instruction: TAKE 1 TAB BY MOUTH DAILY AT BEDTIME Rx Instructions: TAKE 1 TAB BY MOUTH DAILY AT BEDTIME metoprolol succinate 50 mg tablet extended release 24 hr See Rx Instructions .ROUTE .COMPLEX Qty: 90 2RF Dose Instruction: TAKE 1 TABLET BY MOUTH EVERY DAY Rx Instructions: TAKE 1 TABLET BY MOUTH EVERY DAY losartan 50 mg tablet 50 mg PO BID Qty: 180 1RF No Action (DME) blood pressure monitor [Blood Pressure Kit] Kit See Rx Instructions .ROUTE .MEDSUPPLY Qty: 1 0RF Rx Instructions: Check blood pressure daily for hypertension I10 Referrals / Follow Up: Estefany De Guzman MD [Primary Care Provider, Internal Medicine] - Within 2 Weeks Disposition Disposition (needs filled in before D/C Order can be placed): Home, Self Care Charges/Coding Visit Charges Inpatient E&M: 14195 Disch Hosp >30min
[2025-02-06 11:11] VITALS: BP 106/72; PULSE 89; RESP 18; TEMP 37.1; O2SAT 96
--- NOTE | 2025-02-06 11:41 | CASEMGMT ---
RN CM NOTE: Discharge order is in. Home O2 amb testing has been completed, pt does not qualify for home O2. RN CM to room. Introduced self and role. Pt's brother, Malick, is @ bedside and pt agreeable to him being present during RN CM conversation. Pt aware he is discharging home today. Pt discharging home on Eliquis. Discussed Eliquis 30-day free trial offer card and made aware this is a dsyy-kl-t-lifetime use card. Made aware to f/u with PCP if refills are not affordable. Discussed [employer] website for possible savings/financial assistance, as he states his is very good w/using the internet and getting applying savings/getting assistance. He was made aware Rx's have been sent to [facility]. He would like to get them @ [facility] retail pharmacy [place]. Call placed to [place] in the pharmacy and she was made aware to transfer Rx's & that pt would like to have [id number]. Pharmacy to call for payment per pt request and [place] made aware. Pt states he lives w/his and 24-yr-old daughter who has Cerebral Palsy and they take care of her. Pt is indep w/ADL's, helps manage his medications. They have a ramp entrance for their daughter. Pt uses a cane, shower chair, BP machine, and they do have a pulse ox. He denies need for other DME. Pt denies having further discharge needs or concerns. Son will be taking him home. Isabella GARCIA CM
[2025-02-06 11:57] LABS: Partial Thromboplast Time 64.2 Seconds (24.1-36.2)
--- NOTE | 2025-02-06 12:03 | PHA.DC_ITS ---
Pharmacy DC Med Rec Counseling
--- NOTE | 2025-02-06 12:03 | PHA.DC.MC.R ---
Pharmacy [facility] Counseling Pharmacy Service has performed discharge medication reconciliation and counseling for this patient. The patient's discharge medication list was reviewed for discrepancies and discrepancies were resolved. The patient was counseled on the following discharge medications and changes in medications for homegoing were reviewed. The Reason for Use, instructions for use, and potential side effects were reviewed for all new medications. The patient's questions regarding all of their medications were answered. 1. Apixaban starter pack 2. Augmentin 875 BID x 5 days 3. Guaifenesin 1200 mg ER BID x 5 days The patient was able to verbally demonstrate an understanding of their discharge medications. Medications at Discharge Home Medications cholecalciferol (vitamin D3) 50 mcg (2,000 unit) capsule (Vitamin D3) 50 mcg PO DAILY supplement 07/25/21 leuprolide (3 month) 22.5 mg (3 month) subcutaneous syringe (Eligard) 22.5 mg subcut .Q3MO BPH 07/25/21 enzalutamide 80 mg tablet (Xtandi) 160 mg PO QHS BPH 08/12/21 tramadol 50 mg tablet 50 mg PO Q6H PRN pain 11/29/21 lorazepam 0.5 mg tablet 0.5 mg PO Q6H PRN anxiety 04/03/22 blood pressure monitor (Blood Pressure Kit) #1 ea 06/15/22 denosumab 120 mg/1.7 mL (70 mg/mL) subcutaneous solution (Xgeva) 120 mg subcut .every three months bone health 03/19/23 megestrol 20 mg tablet 20 mg PO BID cancer 03/19/23 mirtazapine 30 mg tablet 30 mg PO QHS mental health #90 tabs 07/09/24 amlodipine 10 mg tablet See Rx Instructions .Route .COMPLEX blood pressure #90 tabs 10/02/24 ferrous sulfate 325 mg (65 mg iron) tablet 325 mg PO BID supplement #180 tabs 10/02/24 metoprolol succinate 50 mg tablet,extended release 24 hr See Rx Instructions .Route .COMPLEX blood pressure #90 tabs 10/02/24 losartan 50 mg tablet 50 mg PO BID blood pressure #180 TABLETS 12/29/24 amoxicillin 875 mg-potassium clavulanate 125 mg tablet 1 tab PO BID #10 tabs 02/06/25 apixaban 5 mg (74 tabs) tablets in a dose pack (Eliquis DVT-PE Treat 30D Start) See Rx Instructions PO .COMPLEX #74 tabs 02/06/25 guaifenesin 1,200 mg tablet, extended release 12 hr (Mucus Relief ER) 1,200 mg PO BID #10 tabs 02/06/25
== END 2025-02-06 15:01 | disposition home or self-care (01) ==
LOC: ED 14:31 → PCU 14:39
PROVIDERS: Admitting Provider Internal Medicine; Emergency Provider Emergency Medicine; PCP Internal Medicine
DX: I26.99 Other pulmonary embolism without acute cor pulmonale (principal); C79.51 Secondary malignant neoplasm of bone; C61 Malignant neoplasm of prostate; J18.9 Pneumonia, unspecified organism; R04.2 Hemoptysis; I10 Essential (primary) hypertension; F41.9 Anxiety disorder, unspecified; F32.A Depression, unspecified; D64.9 Anemia, unspecified; N40.1 Benign prostatic hyperplasia with lower urinary tract symptoms; R35.1 Nocturia; M19.90 Unspecified osteoarthritis, unspecified site; F10.10 Alcohol abuse, uncomplicated; F12.99 Cannabis use, unspecified with unspecified cannabis-induced disorder; Z79.899 Other long term (current) drug therapy; Z87.891 Personal history of nicotine dependence
CPT/HCPCS: 36415; 71275; 74177; 80048; 80053; 81001; 82803; 83605; 83690; 83880; 84145; 84484; 85025; 85610; 85730; 87633; 87635; 93005; 93306; 94668; 96361; 96365; 96366; 96368; 96375; 96376; 99221; 99285; P9612; Q9967; A4216; G0378; J0696